=== PATIENT | female | born 1950 | race Caucasian/White ===

== ENCOUNTER → 2016-11-19 | Outpatient (REF) | payer MEDICARE, OTHER ==
[~2016-11-19] MED LIST: ACET65TA OR; ALLE25CA OR; ASPI81TA3 OR
[2016-11-19 13:30] LABS: MEAN CORPUSCULAR HEMOGLOBIN 31.8 pg (27.0-33.0); MEAN CORPUSCULAR HGB CONC 33.3 g/dl (32.0-36.5); MEAN CORPUSCULAR VOLUME 95.5 fl (80.0-96.0); RED CELL DISTRIBUTION WIDTH 12.7 % (11.5-14.5); WHITE BLOOD COUNT 7.5 K/mm3 (4.0-10.0)
[2016-11-19 13:39] LABS: ALBUMIN 3.9 GM/DL (3.2-5.2); ALBUMIN/GLOBULIN RATIO 1.08 (1.00-1.93); ALKALINE PHOSPHATASE 78 U/L (45-117); ALT/SGPT 147 U/L (12-78); ANION GAP 7 MEQ/L (8-16); AST/SGOT 77 U/L (15-37); BILIRUBIN,TOTAL 0.6 MG/DL (0.2-1.0); BLOOD UREA NITROGEN 13 MG/DL (7-18); CALCIUM LEVEL 9.2 MG/DL (8.8-10.2); CARBON DIOXIDE LEVEL 30 MEQ/L (21-32); CHLORIDE LEVEL 104 MEQ/L (98-107); CREATININE FOR GFR 0.86 MG/DL (0.55-1.02); GLOMERULAR FILTRATION RATE > 60.0 (>45); GLUCOSE, FASTING 88 MG/DL (80-110); POTASSIUM SERUM 4.5 MEQ/L (3.5-5.1); SODIUM LEVEL 141 MEQ/L (136-145); TOTAL PROTEIN 7.5 GM/DL (6.4-8.2)
== END ==
LOC: M SFHCPLAZ 10:52
PROVIDERS: ATTEND Nurse Practitioner Adult Health
DX: E03.9 Hypothyroidism, unspecified (principal); E55.9 Vitamin D deficiency, unspecified

== ENCOUNTER → 2017-11-25 | Outpatient (CLI) | payer MEDICARE, OTHER ==
[2017-11-25 09:34] LABS: ALBUMIN 3.3 GM/DL (3.2-5.2); ALBUMIN/GLOBULIN RATIO 0.85 (1.00-1.93); ALKALINE PHOSPHATASE 81 U/L (45-117); ALT/SGPT 34 U/L (12-78); ANION GAP 6 MEQ/L (8-16); AST/SGOT 21 U/L (7-37); BILIRUBIN,TOTAL 0.4 MG/DL (0.2-1.0); BLOOD UREA NITROGEN 12 MG/DL (7-18); CALCIUM LEVEL 8.9 MG/DL (8.8-10.2); CARBON DIOXIDE LEVEL 32 MEQ/L (21-32); CHLORIDE LEVEL 105 MEQ/L (98-107); CHOLESTEROL LEVEL 231 MG/DL (<200); CHOLESTEROL RISK RATIO 4.714 (<5); CREATININE FOR GFR 0.82 MG/DL (0.55-1.30); GLOMERULAR FILTRATION RATE > 60.0 (>45); GLUCOSE, FASTING 89 MG/DL (70-100); HDL CHOLESTEROL 49 MG/DL (>40); LDL CHOLESTEROL 138.8 MG/DL (<100); NON-HDL-C 182 MG/DL; POTASSIUM SERUM 4.5 MEQ/L (3.5-5.1); SODIUM LEVEL 143 MEQ/L (136-145); TOTAL PROTEIN 7.2 GM/DL (6.4-8.2); TRIGLYCERIDES LEVEL 216 MG/DL (<150)
[2017-11-25 10:01] LABS: TOTAL 25(OH) VITAMIN D 40.3 NG/ML (30.0-100.0)
== END ==
LOC: M WUC 08:08
DX: Z00.00 Encounter for general adult medical examination without abnormal findings (principal); E55.9 Vitamin D deficiency, unspecified; E03.9 Hypothyroidism, unspecified; E78.2 Mixed hyperlipidemia
CPT/HCPCS: 84443

== ENCOUNTER → 2017-12-09 | Outpatient (CLI) | payer MEDICARE, OTHER | LOC: M RAD 07:16 | DX: R79.89 Other specified abnormal findings of blood chemistry (principal); K80.80 Other cholelithiasis without obstruction; N28.89 Other specified disorders of kidney and ureter | CPT/HCPCS: 76705 ==

== ENCOUNTER → 2018-07-07 | Outpatient (REF) | payer MEDICARE, OTHER ==
[2018-07-07 12:14] LABS: BASO # 0.1 10^3/uL (0.0-0.2); BASO % 0.3 % (0.0-1.0); EOS # 0.2 10^3/uL (0.0-0.50); EOS % 1.1 % (0.0-3.0); HEMATOCRIT 39.8 % (36.0-47.0); HEMOGLOBIN 12.9 g/dl (12.0-15.5); LYMPH # 3.7 10^3/uL (1.5-4.5); LYMPH % 23.3 % (24.0-44.0); MEAN CORPUSCULAR HEMOGLOBIN 29.9 pg (27.0-33.0); MEAN CORPUSCULAR HGB CONC 32.4 g/dl (32.0-36.5); MEAN CORPUSCULAR VOLUME 92.3 fl (80.0-96.0); MONO # 1.2 10^3/uL (0.0-0.8); MONO % 7.9 % (0.0-5.0); NEUTROPHILS # 10.5 10^3/uL (1.8-7.7); NEUTROPHILS % 66.9 % (36.0-66.0); PLATELET COUNT, AUTOMATED 504 10^3/uL (150-450); RED BLOOD COUNT 4.31 10^6/uL (4.00-5.40); WHITE BLOOD COUNT 15.7 10^3/uL (4.0-10.0)
[2018-07-07 12:54] LABS: ALT/SGPT 22 U/L (12-78); BILIRUBIN,TOTAL 0.3 MG/DL (0.2-1.0); BLOOD UREA NITROGEN 15 MG/DL (7-18); CALCIUM LEVEL 8.8 MG/DL (8.8-10.2); CARBON DIOXIDE LEVEL 29 MEQ/L (21-32); CHLORIDE LEVEL 102 MEQ/L (98-107); CREATININE FOR GFR 0.91 MG/DL (0.55-1.30); GLOMERULAR FILTRATION RATE > 60.0 (>45); GLUCOSE, FASTING 96 MG/DL (70-100); POTASSIUM SERUM 4.5 MEQ/L (3.5-5.1); SODIUM LEVEL 139 MEQ/L (136-145); TOTAL PROTEIN 7.3 GM/DL (6.4-8.2)
== END ==
LOC: M SFHCPLAZ 10:57
PROVIDERS: ATTEND Nurse Practitioner Adult Health
DX: R10.31 Right lower quadrant pain (principal)

== ENCOUNTER → 2018-07-07 | Outpatient (CLI) | payer MEDICARE, OTHER ==
[~2018-07-07] MED LIST changes: +GASTROGRAFIN SOLUTION 30ML (Q9963) As Ordered ONE; +ISOVUE-370 76% 100ML VIAL (Q9967) As Ordered ONE
--- NOTE | 2018-07-07 14:33 | REP ---
CT ABDOMEN/PELVIS WITHOUT AND WITH CONTRAST: 07/07/2018 CLINICAL HISTORY: Right lower quadrant abdominal pain. TECHNIQUE: Oral Gastrografin mixture per our protocol with scanning followed by a bolus of 100 mL Isovue 370 rescanning through the abdomen and pelvis and with both coronal and sagittal reconstructions provided. FINDINGS: CT ABDOMEN: The lung bases are clear. Heart not enlarged. There is no pericardial thickening or effusion. No hiatal hernia. The liver shows no hepatic mass or fatty infiltration, left lobe mildly prominent. Contours are smooth. No biliary dilatation nor adjacent ascites. A few tiny calcifications in the spleen noted. There is a 13 mm cyst in the left lobe of the liver as a benign finding. Adrenal glands are normal. Kidneys show function without obstruction. A couple of tiny cysts are seen posteriorly in the periphery of the right upper pole. No stone or mass and no hydronephrosis. The aorta has atherosclerotic calcifications without aneurysm. Oral contrast did reach the transverse colon. There are no inflammatory changes in the abdominal portion of the colon. Appendix is actually in the upper pelvic portion of the right mid abdomen because the cecum has a medial angulation in the mid abdomen/upper pelvis. Appendix is normal. Bone windows show degenerative disc changes at L4-5 and no compression fracture or destructive lesion. No spondylolysis. The visualized ribs are intact. CT PELVIS: The bony sacrum, iliac bones, hips, and SI joints are unremarkable. There is some sclerosis at the symphysis pubis. Pubic rami grossly intact. Uterus anteverted. There appears to be nodular fibroid in the fundus and body of the uterus up to 3.8 cm. The distal left colon proximal sigmoid shows stool and diverticulosis. The mid to distal sigmoid to the junction of the rectum shows bowel wall thickening, some adjacent inflammatory changes or edema in the pericolonic fat. There is no perforation or abscess. The segmental length of this abnormal sigmoid is at least 9 cm. I see no pelvic free fluid. Small bowel loops in the deep pelvis are unremarkable. The bladder is only partially filled, but there is no evidence for mass, wall thickening, or stone. No ventral or inguinal hernia. IMPRESSION: 1. Thickened, edematous circumferential abnormality of the mid to distal sigmoid with inflammatory or edematous changes in the adjacent subserosal fat and with evidence for diverticulosis of the sigmoid proximal to this. The findings may reflect diverticulitis, but there is no perforation, abscess, or free air. No ascites. After treatment for acute diverticulitis or diverticular disease, this should be followed up. Possibility of malignant mucosal lesion of the colon is not excluded and must be reassessed after completion of treatment. Ultimately, this may require followup with colonoscopy. 2. Diverticulosis proximal sigmoid and scattered elsewhere in the left colon without other inflammatory changes. Small bowel intact. 3. Liver with prominent left hepatic lobe, but no gross hepatomegaly. A small 13 mm cyst seen within. No biliary dilatation. No other significant finding. Electronically Signed by Etienne Blanco MD 07/07/2018 09:55 P
== END ==
LOC: M RAD 11:39
PROVIDERS: ATTEND Nurse Practitioner Adult Health
DX: R93.5 Abnormal findings on diagnostic imaging of other abdominal regions, including retroperitoneum (principal); K57.30 Diverticulosis of large intestine without perforation or abscess without bleeding; K76.89 Other specified diseases of liver; R10.31 Right lower quadrant pain
CPT/HCPCS: 74178; 80053; 85025; Q9963; Q9967

== ENCOUNTER 2018-08-17 18:29 | Inpatient (IN) | payer MEDICARE, OTHER ==
[~2018-08-17] VITALS: Ht 165.1 cm; Wt 61.6 kg
[~2018-08-17 18:29] MED LIST changes: -GASTROGRAFIN SOLUTION 30ML (Q9963) As Ordered ONE; -ISOVUE-370 76% 100ML VIAL (Q9967) As Ordered ONE
[2018-08-17] MEDS ORDERED: ACET-908 PO (18:39)
[2018-08-17] MEDS ORDERED: NS 1,000 ML IV SCH (19:30)
[2018-08-17] MEDS ORDERED: ONDANSETRON 4MG/2ML VIAL (J2405) IV ONE (19:30)
[2018-08-17] MEDS ORDERED: MORPHINE 2 MG/ML 1ML SYRINGE (J2270) IV PRN (19:30)
[2018-08-17 19:36] LABS: BASO % 0.2 % (0.0-1.0); EOS # 0.1 10^3/uL (0.0-0.50); EOS % 0.5 % (0.0-3.0); HEMATOCRIT 33.5 % (36.0-47.0); HEMOGLOBIN 10.7 g/dl (12.0-15.5); LYMPH # 3.6 10^3/uL (1.5-4.5); LYMPH % 20.4 % (24.0-44.0); MEAN CORPUSCULAR HEMOGLOBIN 28.1 pg (27.0-33.0); MEAN CORPUSCULAR HGB CONC 31.9 g/dl (32.0-36.5); MEAN CORPUSCULAR VOLUME 87.9 fl (80.0-96.0); MONO # 1.1 10^3/uL (0.0-0.8); MONO % 6.3 % (0.0-5.0); NEUTROPHILS # 12.8 10^3/uL (1.8-7.7); NEUTROPHILS % 72.1 % (36.0-66.0); PLATELET COUNT, AUTOMATED 753 10^3/uL (150-450); RED BLOOD COUNT 3.81 10^6/uL (4.00-5.40); WHITE BLOOD COUNT 17.7 10^3/uL (4.0-10.0)
[2018-08-17] MEDS: GASTROGRAFIN SOLUTION 30ML PO SCH ×2 (19:59→20:37)
[2018-08-17 20:02] LABS: ALBUMIN 1.9 GM/DL (3.2-5.2); ALT/SGPT 15 U/L (12-78); BILIRUBIN,DIRECT 0.1 MG/DL (0.0-0.2); BILIRUBIN,TOTAL 0.4 MG/DL (0.2-1.0); BLOOD UREA NITROGEN 13 MG/DL (7-18); CALCIUM LEVEL 8.8 MG/DL (8.8-10.2); CARBON DIOXIDE LEVEL 27 MEQ/L (21-32); CHLORIDE LEVEL 101 MEQ/L (98-107); CREATININE FOR GFR 0.78 MG/DL (0.55-1.30); GLOMERULAR FILTRATION RATE > 60.0 (>45); GLUCOSE, FASTING 101 MG/DL (70-100); LIPASE 40 U/L (73-393); POTASSIUM SERUM 4.3 MEQ/L (3.5-5.1); SODIUM LEVEL 134 MEQ/L (136-145); TOTAL PROTEIN 6.3 GM/DL (6.4-8.2)
[2018-08-17] MEDS ORDERED: PIPERACILLIN/TAZOBACTAM SOD 3.375 GM in D5W MINI-BAG PLUS 50 ML IV ONE (20:30)
[2018-08-17] MEDS ORDERED: ISOVUE-370 76% 100ML VIAL (Q9967) As Ordered ONE (21:34)
[2018-08-17] MEDS ORDERED: LORazepam 1 MG TAB PO STA (22:33)
--- NOTE | 2018-08-17 23:28 | ECGEPIP ---
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
--- NOTE | 2018-08-18 00:15 | REPVR ---
EXAM: CT Abdomen and Pelvis With Contrast EXAM DATE/TIME: 08/17/2018 10:14 PM CLINICAL HISTORY: 68 years old, female; Abdominal pain; Generalized; Prior surgery; Additional info: Diverticulitis R/O abscess TECHNIQUE: Imaging protocol: Axial computed tomography images of the abdomen and pelvis with intravenous contrast. Coronal and sagittal reformatted images were created and reviewed. Radiation optimization: All CT scans at this facility use at least one of these dose optimization techniques: automated exposure control; mA and/or kV adjustment per patient size (includes targeted exams where dose is matched to clinical indication); or iterative reconstruction. Contrast material: ISOVUE 370; Contrast volume: 100 ml; Contrast route: IV; COMPARISON: CT ABD PELVIS W/O FOL BY WIT 07/07/2018 1:40 PM FINDINGS: ABDOMEN: Liver: Diffuse fatty infiltration of liver. Gallbladder and bile ducts: Gallstones. Pancreas: Normal. No ductal dilation. Spleen: Normal. No splenomegaly. Adrenals: Normal. No mass. Kidneys and ureters: Cortical scarring of the upper pole of left kidney. Right kidney is unremarkable. Stomach and bowel: Large fecal loading of the colon. Marked distention of the rectum. Additionally there is a large low attenuation area with thickened enhancing margins and central areas of air in the anterior rectal wall extending up to the sigmoid colon measuring approximately 7.3 x 5.6 x 6.1 cm. Surrounding moderate inflammatory changes and small fluid is seen. Mass effect on the uterus and urinary bladder as described above. Findings are concerning for a rectal wall abscess formation versus necrotic mass, further workup is recommended. Appendix: Normal appendix. PELVIS: Bladder: Unremarkable as visualized. Reproductive: Heterogeneous uterus with small amount of fluid posterior to the uterus. Glucoses displaced superiorly from the rectum abscess versus mass. Subperitoneal space: Presacral edema. ABDOMEN and PELVIS: Intraperitoneal space: See Stomach And Bowel Finding. Bones/joints: Mild degenerative changes. Soft tissues: Unremarkable. Vasculature: Normal. No abdominal aortic aneurysm. Lymph nodes: Normal. No enlarged lymph nodes. IMPRESSION: Large fecal loading of the colon. Marked distention of the rectum. Additionally there is a large low attenuation area with thickened enhancing margins and central areas of air in the anterior rectal wall extending up to the sigmoid colon measuring approximately 7.3 x 5.6 x 6.1 cm. Surrounding moderate inflammatory changes and small fluid is seen. Mass effect on the uterus and urinary bladder as described above. Findings are concerning for a rectal wall abscess formation versus necrotic mass, further workup is recommended. Electronically signed by: Stacy Joshua On 08/18/2018 00:14:57 AM
[2018-08-18] MEDS ORDERED: SENN-50 PO (01:19)
[2018-08-18] MEDS ORDERED: OMEG10005 PO (01:19)
[2018-08-18] MEDS ORDERED: SYST1SOL4 OU (01:19)
[2018-08-18] MEDS ORDERED: VITMTA PO (01:19)
[2018-08-18] MEDS ORDERED: ACET-897 PO (01:19)
[2018-08-18] MEDS ORDERED: VITA-144 PO (01:19)
[2018-08-18] MEDS ORDERED: ANTI2TAB16 PO (01:19)
[2018-08-18] MEDS ORDERED: KETOROLAC 30 MG/ML VIAL (J1885) IV PRN (01:30)
[2018-08-18] MEDS ORDERED: MORPHINE 4 MG/ML 1ML VIAL/SYRINGE (J2270) IV PRN (01:30)
[2018-08-18] MEDS ORDERED: ONDANSETRON 4MG/2ML VIAL (J2405) IV PRN (01:30)
[2018-08-18] MEDS ORDERED: PERCOCET 5MG/325MG TAB PO PRN ×2 (01:30)
[2018-08-18] MEDS: CIPROFLOXACIN 400 MG in APPROPRIATE DILUENT 1 EA IV SCH ×3 (01:37→14:57)
[2018-08-18 02:25] VITALS: BP 119/62
[2018-08-18] MEDS: LR 1,000 ML IV SCH ×3 (03:06→17:17)
[2018-08-18] MEDS: metroNIDAZOLE 500 MG in APPROPRIATE DILUENT 1 EA IV SCH ×3 (04:00→20:00)
[2018-08-18 06:00] VITALS: BP 98/58
[2018-08-18 06:09] LABS: BASO % 0.2 % (0.0-1.0); EOS # 0.2 10^3/uL (0.0-0.50); EOS % 1.1 % (0.0-3.0); HEMATOCRIT 31.5 % (36.0-47.0); HEMOGLOBIN 9.8 g/dl (12.0-15.5); LYMPH # 2.5 10^3/uL (1.5-4.5); LYMPH % 15.8 % (24.0-44.0); MEAN CORPUSCULAR HGB CONC 31.1 g/dl (32.0-36.5); MONO # 1.1 10^3/uL (0.0-0.8); MONO % 6.6 % (0.0-5.0); NEUTROPHILS % 75.7 % (36.0-66.0); PLATELET COUNT, AUTOMATED 695 10^3/uL (150-450); WHITE BLOOD COUNT 15.9 10^3/uL (4.0-10.0)
[2018-08-18 06:37] LABS: BLOOD UREA NITROGEN 10 MG/DL (7-18); CALCIUM LEVEL 8.2 MG/DL (8.8-10.2); CARBON DIOXIDE LEVEL 29 MEQ/L (21-32); CHLORIDE LEVEL 102 MEQ/L (98-107); CREATININE FOR GFR 0.69 MG/DL (0.55-1.30); GLOMERULAR FILTRATION RATE > 60.0 (>45); GLUCOSE, FASTING 87 MG/DL (70-100); SODIUM LEVEL 135 MEQ/L (136-145)
[2018-08-18 09:00] VITALS: BP 120/60
[2018-08-18] MEDS: ENOXAPARIN 40 MG/0.4 ML SYRINGE (J1650) SC SCH (09:39)
[2018-08-18] MEDS: SENOKOT S TAB PO SCH ×2 (09:39→22:00)
[2018-08-18 14:00] VITALS: BP 133/64
[2018-08-18 22:00] VITALS: BP 103/57
[2018-08-19] MEDS: LR 1,000 ML IV SCH ×3 (00:39→21:08)
[2018-08-19] MEDS: CIPROFLOXACIN 400 MG in APPROPRIATE DILUENT 1 EA IV SCH ×2 (02:54→17:04)
[2018-08-19] MEDS: metroNIDAZOLE 500 MG in APPROPRIATE DILUENT 1 EA IV SCH ×3 (04:00→21:09)
[2018-08-19 06:00] VITALS: BP 126/60
[2018-08-19 06:32] LABS: BASO % 0.2 % (0.0-1.0); EOS # 0.2 10^3/uL (0.0-0.50); EOS % 0.9 % (0.0-3.0); HEMOGLOBIN 9.7 g/dl (12.0-15.5); LYMPH # 3.5 10^3/uL (1.5-4.5); MEAN CORPUSCULAR HGB CONC 31.3 g/dl (32.0-36.5); MEAN CORPUSCULAR VOLUME 89.6 fl (80.0-96.0); MONO # 1.2 10^3/uL (0.0-0.8); MONO % 6.7 % (0.0-5.0); NEUTROPHILS # 12.4 10^3/uL (1.8-7.7); NEUTROPHILS % 71.6 % (36.0-66.0); PLATELET COUNT, AUTOMATED 727 10^3/uL (150-450); RED BLOOD COUNT 3.46 10^6/uL (4.00-5.40); WHITE BLOOD COUNT 17.4 10^3/uL (4.0-10.0)
[2018-08-19 06:56] LABS: BLOOD UREA NITROGEN 7 MG/DL (7-18); CALCIUM LEVEL 8.1 MG/DL (8.8-10.2); CARBON DIOXIDE LEVEL 26 MEQ/L (21-32); CHLORIDE LEVEL 102 MEQ/L (98-107); CREATININE FOR GFR 0.57 MG/DL (0.55-1.30); GLOMERULAR FILTRATION RATE > 60.0 (>45); GLUCOSE, FASTING 83 MG/DL (70-100); POTASSIUM SERUM 3.8 MEQ/L (3.5-5.1); SODIUM LEVEL 136 MEQ/L (136-145)
[2018-08-19] MEDS: ENOXAPARIN 40 MG/0.4 ML SYRINGE (J1650) SC SCH (08:57)
[2018-08-19] MEDS: SENOKOT S TAB PO SCH ×2 (08:57→21:09)
--- NOTE | 2018-08-19 10:01 | HPEPDOC ---
General Surgery H&P Date of Admission Aug 18, 2018 Attending Physician: DIMITRY HOOD MD History and Physical CHIEF COMPLAINT: abdominal pain HISTORY OF PRESENT ILLNESS: Patient presents to the emergency room on 2018 with more than a month history of lower abdominal pain. This roughly started on 07/07/2018. She was seen by her primary care doctor for complaints of right lower quadrant pain at that time. She was worked up for possibility of acute appendicitis and a CT abdomen and pelvis was done. This showed marked inflammation involving a 9 cm segment of the sigmoid. She was started on oral ciprofloxacin and metronidazole but she only took this for 2 days that she was experiencing some skittish mass, diarrhea, nausea which she attributed to side effects of the medications. He was then decided to just follow her course. The frequent diarrhea improved but did not totally resolve. She continues to have about 3-4 small amounts of loose stools. She denies noticing any blood or mucus with the passage of stools. She continues to have poor appetite and episodes of nausea, fullness with small danial ls but she denies any overt vomiting. Generally for the past month has been feeling ill. She reports fever early on her course but this seems at some point to have resolved. Decided with her daughter to go to the emergency room as she does not seem to be getting better and she felt so dehydrated and weak. She reports losing about 10-15 pounds since this has been ongoing. She has had no previous colonoscopies or methods of colorectal cancer screening and she has refused this in the past with her primary care doctor. She denies any significant family history for inflammatory bowel disease nor gastrointestinal malignancies. In the emergency room she was evaluated with a CT scan likewise repeat laboratories and subsequently I was called in to help manage the patient. ALLERGIES: Please see below. HOME MEDICATIONS: Please see below. PAST MEDICAL HISTORY: 1. Hypercholesterolemia 2. Osteopenia 3. Vitamin D deficiency PAST SURGICAL HISTORY: 1. Repair right wrist fracture (2007) 2. Bilateral cataract surgery 3. Bunionectomy 4. section 3. 4. Tubal ligation PERSONAL/SOCIAL HISTORY: Denies smoking, alcohol use, or recreational drug use. REVIEW OF SYSTEMS: GENERAL: Patient feeling not well for about a month regarding ongoing problems related to the diverticulitis including weight loss, poor appetite HEENT: Denies blurred vision and double vision. Denies ear symptoms. Denies hoarseness. Patient with previous cataract surgery NECK: Denies any neck pain. CARDIOVASCULAR: Denies chest pain and palpitations. MUSCULOSKELETAL: Denies arthralgias, back pain and thrombophlebitis. SKIN: Denies rash. NEUROLOGIC: Patient with previous admission for suspected TIA in 2011, no resi dual weakness. PSYCHIATRIC: Denies anxiety and depression. ENDOCRINE: Denies thyroid disease. HEMATOLOGY/ONCOLOGY: Denies any bleeding or clotting disorder. HEART: Denies any chest pains, palpitations, paroxysmal dyspnea, orthopnea. PULMONARY: Denies chronic cough, dyspnea and wheezing. GASTROINTESTINAL: See HPI GENITOURINARY: Denies dysuria, frequency, hematuria and nocturia. ENDOCRINE: Denies polydipsia, polyphagia, polyuria, heat or cold intolerance. INFECTIOUS: Denies any recent upper respiratory tract infection, UTI, need for use of antibiotics. NUTRITION: Reports poor appetite PHYSICAL EXAMINATION: VITAL SIGNS: Please see below. GENERAL APPEARANCE: Patient seen at bedside, generally looks comfortable. She reports feeling better since being admitted to the hospital overnight. HEENT: Normocephalic, atraumatic. [place] palpebral conjunctivae. Anicteric sclerae. Lips moist. CHEST: No chest wall abnormalities. Normal respiratory motion/effort. NECK: Supple. No thyromegaly. No lymphadenopathies. LUNGS: Lung sounds are clear to auscultation bilaterally. No wheezing appreciated. HEART: No chest wall abnormalities. Heart rate and rhythm are regular with no murmurs. ABDOMEN: [Abdomen is nondistended, soft, slightly rounded. She has a healed Pfannenstiel incision without any evidence of incisional hernia likewise a small incision below the umbilicus. No noticeable umbilical or groin herniations. She is nontender over the upper quadrant areas. She has some moderate tenderness over the right lower quadrant area on deep palpation also with slightly less tenderness on the left lower quadrant area with radiation to the lower midline and suprapubic area. No noticeable guarding during examination. Mildly tympanitic to percussion SKIN: Warm, moist. EXTREMITIES: Extremities have no deformities. No edema identified. NEUROLOGICAL: Awake, alert, oriented. . ANCILLARIES: . LABORATORY DATA: Please see below. MICROBIOLOGY: Please see below. IMAGING: CT abdomen and pelvis 08/17/18 Large fecal loading of the colon. Marked distention of the rectum. Additionally there is a large low attenuation area with thickened enhancing margins and central areas of air in the anterior rectal wall extending up to the sigmoid colon measuring approximately 7.3 x 5.6 x 6.1 cm. Surrounding moderate inflammatory changes and small fluid is seen. Mass effect on the uterus and urinary bladder as described above. Findings are concerning for a rectal wall abscess formation versus necrotic mass, further workup is recommended. 07/08/18 1. Thickened, edematous circumferential abnormality of the mid to distal sigmoid with inflammatory or edematous changes in the adjacent subserosal fat and with evidence for diverticulosis of the sigmoid proximal to this. The findings may reflect diverticulitis, but there is no perforation, abscess, or free air. No ascites. After treatment for acute diverticulitis or diverticular disease, this should be followed up. Possibility of malignant mucosal lesion of the colon is not excluded and must be reassessed after completion of treatment. Ultimately, this may require followup with colonoscopy. 2. Diverticulosis proximal sigmoid and scattered elsewhere in the left colon without other inflammatory changes. Small bowel intact. 3. Liver with prominent left hepatic lobe, but no gross hepatomegaly. A small 13 mm cyst seen within. No biliary dilatation. No other significant finding. IMPRESSION AND PLAN: Diverticulitis complicated by contained abscess (?anterior rectal wall) IV antibiotics bowel rest repeat CT in a few days I had a long discussion with the patient. Her daughter was also at the bedside with her. I showed them the images of the [address] scan findings likewise discussed my clinical impression and plan for therapy. She'll prolonged course of possibly subacute diverticulitis that has not been treated. There is extensive inflammatory changes located over the proximal rectum and along the course of the sigmoid colon with a possibility of an abscess in between the anterior wall of the rectum and the uterus. This could also be an intramural abscess. This is not to well-defined in the CT scan done yesterday. There is no free perforation and she does not have any generalized peritonitis nor any manifestations of severe systemic inflammatory response from this process. The etiology is presumed to be diverticulitis though due to the prolonged course, [place] differentials would be inflammatory versus malignancy. The fact that she has not had any methods of colorectal cancer screening including colonoscopy does not help us in ruling out the possibility of malignancy. At this point with hydration and her being started on IV antibiotics, patient has reported some improvement of her discomfort. I pointed out to her that I am using the same medication that she was started on as an outpatient and I am not sure if the reaction she felt during that time secondary to the medications or to the infectious or inflammatory process in general that she was experiencing. The active issues include controlling the infectious inflammatory process. She may have a contained abscess at the anterior wall of the colon or slightly outside office in between the rectum and uterus and unfortunately this is not amenable to percutaneous drainage. We will continue with IV antibiotics at this time and the short period of bowel rest and will need to repeat a CT scan in a few days to see where we are at. Clinically she reports to be improving. If she continues to improve and the infectious or inflammatory processes controlled with nonoperative therapy, I told him that the next step will be planning for colonoscopy to figure out the etiology. If this is not too well controlled the remaining need to forego finding out the etiology and go to surgery. I did discuss with him a high possibility of her needing bowel resection and the diverging colostomy if we need to go to the operating room urgently or emergently. If she does get better and etiology proves to be making the diverticulitis, I told her that overall I still would suggest undergoing an elective colon resection due to the degree of inflammatory process in the higher likelihood that this will recur given the complex course of the diverticulitis but of course this is more an option than a requirement. I answered her and her daughter's questions at the bedside and they are in agreement with our plan of therapy. Vital Signs Vital Signs Date Time Temp Pulse Resp B/P (MAP) Pulse Ox O2 Delivery O2 Flow Rate FiO2 08/18/18 06:00 98.3 74 18 98/58 (71) 91 08/18/18 02:15 Room Air I&Os I&O- Last 24 Hours up to 6 AM 08/18/18 06:00 Intake Total 1600 ml Output Total 250 ml Balance 1350 ml Laboratory Data Labs 24H Laboratory Tests 2 08/17/18 19:17: Immature Granulocyte % (Auto) 0.5, White Blood Count 17.7H, Red Blood Count 3.81L, Hemoglobin 10.7L, Hematocrit 33.5L, Mean Corpuscular Volume 87.9, Mean Corpuscular Hemoglobin 28.1, Mean Corpuscular Hemoglobin Concent 31.9L, Red Cell Distribution Width 13.7, Platelet Count 753H, Neutrophils (%) (Auto) 72.1H, Ly mphocytes (%) (Auto) 20.4L, Monocytes (%) (Auto) 6.3H, Eosinophils (%) (Auto) 0.5, Basophils (%) (Auto) 0.2, Neutrophils # (Auto) 12.8H, Lymphocytes # (Auto) 3.6, Monocytes # (Auto) 1.1H, Eosinophils # (Auto) 0.1, Basophils # (Auto) 0.0, Nucleated Red Blood Cells % (auto) 0.0, Anion Gap 6L, Glomerular Filtration Rate > 60.0, Calcium Level 8.8, Aspartate Amino Transf (AST/SGOT) 23, Alanine Aminotransferase (ALT/SGPT) 15, Alkaline Phosphatase 144H, Total Bilirubin 0.4, Direct Bilirubin 0.1, Total Protein 6.3L, Albumin 1.9L, Albumin/Globulin Ratio 0.43L, Lipase 40L 08/18/18 05:21: Immature Granulocyte % (Auto) 0.6, White Blood Count 15.9H, Red Blood Count 3.50L, Hemoglobin 9.8L, Hematocrit 31.5L, Mean Corpuscular Volume 90.0, Mean Corpuscular Hemoglobin 28.0, Mean Corpuscular Hemoglobin Concent 31.1L, Red Cell Distribution Width 13.8, Platelet Count 695H, Neutrophils (%) (Auto) 75.7H, Lymphocytes (%) (Auto) 15.8L, Monocytes (%) (Auto) 6.6H, Eosinophils (%) (Auto) 1.1, Basophils (%) (Auto) 0.2, Neutrophils # (Auto) 12.0H, Lymphocytes # (Auto) 2.5, Monocytes # (Auto) 1.1H, Eosinophils # (Auto) 0.2, Basophils # (Auto) 0.0, Nucleated Red Blood Cells % (auto) 0.0, Anion Gap 4L, Glomerular Filtration Rate > 60.0, Calcium Level 8.2L, Blood Urea Nitrogen 10, Creatinine 0.69, Sodium Level 135L, Potassium Level 4.0, Chloride Level 102, Carbon Dioxide Level 29 CBC/BMP Laboratory Tests 08/17/18 19:17 Red Blood Count 3.81 L, Mean Corpuscular Volume 87.9, Mean Corpuscular Hemoglobin 28.1, Mean Corpuscular Hemoglobin Concent 31.9 L, Red Cell Distrib ution Width 13.7, Neutrophils (%) (Auto) 72.1 H, Lymphocytes (%) (Auto) 20.4 L, Monocytes (%) (Auto) 6.3 H, Eosinophils (%) (Auto) 0.5, Basophils (%) (Auto) 0.2, Neutrophils # (Auto) 12.8 H, Lymphocytes # (Auto) 3.6, Monocytes # (Auto) 1.1 H, Eosinophils # (Auto) 0.1, Basophils # (Auto) 0.0 08/18/18 05:21 Red Blood Count 3.50 L, Mean Corpuscular Volume 90.0, Mean Corpuscular Hemoglobin 28.0, Mean Corpuscular Hemoglobin Concent 31.1 L, Red Cell Distribution Width 13.8, Neutrophils (%) (Auto) 75.7 H, Lymphocytes (%) (Auto) 15.8 L, Monocytes (%) (Auto) 6.6 H, Eosinophils (%) (Auto) 1.1, Basophils (%) (Auto) 0.2, Neutrophils # (Auto) 12.0 H, Lymphocytes # (Auto) 2.5, Monocytes # (Auto) 1.1 H, Eosinophils # (Auto) 0.2, Basophils # (Auto) 0.0, Calcium Level 8.2 L Microbiology Microbiology 08/17/18 Blood Culture, Received Pending 08/17/18 Blood Culture, Received Pending Home Medications Scheduled Cholecalciferol (Vitamin D3) (Vitamin D3) 1,000 Unit Tablet, 1,000 UNIT PO DAILY, (Reported) Multivitamins (Thera M Plus Tablet) 1 Each Tablet, 1 TAB PO DAILY, (Reported) [place]-3 Fatty Acids ([place]-3) 1,000 Mg Capsule, 2,000 MG PO DAILY, (Reported) Sennosides/Docusate Sodium (Senna Plus Tablet) 1 Each Tablet, 1 TAB PO QHS, (Reported) Scheduled PRN Acetaminophen (Tylenol Extra Strength) 500 Mg Tablet, 1,000 MG PO Q6H PRN for P AIN, (Reported) Loperamide HCl (Anti-Diarrheal) 2 Mg Tablet, 2 MG PO Q4H PRN for DIARRHEA, (Reported) Propylene Glycol/Peg 400/Pf (Systane 0.3-0.4% Eye Drop) 1 Each Droperette, 1 DROP OU QID PRN for DRY EYES, (Reported) Allergies Coded Allergies: bee venom protein (honey bee) (Verified Allergy, Intermediate, SWELLING AND REDNESS, 08/17/18) spider venom (Unverified Allergy, Intermediate, BLACK AND BLUE, SWELLING, 08/18/18) TAPE (Verified Allergy, Unknown, SENSITIVIY, 08/17/18) Coconut (Verified Adverse Reaction, Intermediate, VIOLENTLY ILL, 08/17/18) Crab (Verified Adverse Reaction, Intermediate, VIOLENTLY ILL, 08/17/18) tree nut (Verified Adverse Reaction, Intermediate, MIGRAINES, 08/17/18) aspirin (Verified Adverse Reaction, Unknown, 08/17/18) DIMITRY HOOD MD Aug 18, 2018 08:33
--- NOTE | 2018-08-19 13:31 | IPNPDOC ---
Subjective General Date/Time Seen The patient was seen on 08/19/18 at 08:35. Subject Chief Complaint/History The patient is a 68-year-old female admitted with a reason for visit of Acute Diverticulitis. Patient reports she is feeling better. Not much leftover abdominal discomfort. She is passing flatus but has not had any bowel movements since admission. She is denying nausea, vomiting, bloating. She has been afebrile. She reports feeling weak and his tendency to fall at home. Current Medications Current Medications Current Medications Ciprofloxacin 400 mg/IV Miscellaneous Supplies 200 ml @ 200 mls/hr Q12H IV Last administered on 08/19/18at 02:54; Start 08/18/18 at 03:00 Diatrizoate Meglum/ Diatrizoate Sod (Gastrografin) 10 ml Q30M PO Last administered on 08/17/18at 20:37; Start 08/17/18 at 20:00; Stop 08/17/18 at 20:31; Status DC Enoxaparin Sodium (Lovenox) 40 mg DAILY SC Last administered on 08/18/18at 09:39; Start 08/18/18 at 09:00 Home Med (Med Rec Complete!) ASDIRECTED XX ; Start 08/18/18 at 01:30; Stop 08/18/18 at 01:30; Status DC Ketorolac Tromethamine (ToRADol) 30 mg Q6HP PRN IV MILD/MODERATE PAIN (PS 1-7); Start 08/18/18 at 01:30; Stop 08/23/18 at 01:29 Lactated Ringer's 1,000 ml @ 125 mls/hr Q8H IV Last administered on 08/19/18at 00:39; Start 08/18/18 at 01:17 Lorazepam (Ativan) 1 mg STAT STAT PO ; Start 08/17/18 at 22:33; Stop 08/17/18 at 22:34; Status Cancel Metronidazole 500 mg/IV Miscellaneous Supplies 100 ml @ 100 mls/hr Q8H IV Last administered on 08/19/18at 04:00; Start 08/18/18 at 04:00 Morphine Sulfate (Morphine Sulfate Inj) 2 mg Q30M PRN IV MODERATE PAIN (PS 5-7) Last administered on 08/17/18at 19:59; Start 08/17/18 at 19:30; Stop 08/18/18 at 01:26; Status DC Morphine Sulfate (Morphine Sulfate Inj) 4 mg Q2HP PRN IV SEVERE PAIN (PS 8-10); Start 08/18/18 at 01:30 Ondansetron HCl (ZOFRAN INJection) 4 mg Q6HP PRN IV NAUSEA OR VOMITING; Start 08/18/18 at 01:30 Oxycodone/ Acetaminophen (Percocet 5mg/ 325mg Tablet) 1 tab Q4HP PRN PO MODERATE PAIN (PS 5-7) Last administered on 08/18/18at 01:58; Start 08/18/18 at 01:30 Oxycodone/ Acetaminophen (Percocet 5mg/ 325mg Tablet) 2 tab Q6HP PRN PO SEVERE PAIN (PS 8-10); Start 08/18/18 at 01:30 Senna/Docusate Sodium (Senokot S) 1 tab BID PO Last administered on 08/18/18at 09:39; Start 08/18/18 at 09:00 Sodium Chloride 1,000 ml @ 100 mls/hr Q10H IV Last administered on 08/17/18at 19:58; Start 08/17/18 at 19:30; Stop 08/18/18 at 01:25; Status DC Allergies Coded Allergies: bee venom protein (honey bee) (Verified Allergy, Intermediate, SWELLING AND REDNESS, 08/17/18) spider venom (Unverified Allergy, Intermediate, BLACK AND BLUE, SWELLING, 08/18/18) TAPE (Verified Allergy, Unknown, SENSITIVIY, 08/17/18) Coconut (Verified Adverse Reaction, Intermediate, VIOLENTLY ILL, 08/17/18) Crab (Verified Adverse Reaction, Intermediate, VIOLENTLY ILL, 08/17/18) tree nut (Verified Adverse Reaction, Intermediate, MIGRAINES, 08/17/18) aspirin (Verified Adverse Reaction, Unknown, 08/17/18) Objective Physical Examination Examination GENERAL APPEARANCE: Looks comfortable. SKIN: Warm and moist. HEENT: Normocephalic, atraumatic. [place] palpebral conjunctiva, anicteric sclerae. Lips and mucosa appear moist. NECK: Supple, no thyromegaly. No obvious jugular venous distention. LUNGS: Clear to auscultation bilaterally. No wheezing appreciated. HEART: No chest wall abnormalities. Regular rate and rhythm with no murmurs appreciated. ABDOMEN: Abdomen is relatively flat, soft, much less distended than yesterday. Patient has only minimal discomfort with deep palpation over the right lower quadrant area and left lower quadrant area, much less discomfort than yesterday's examination. She reports some mild discomfort at the suprapubic area but mainly because of a full bladder. EXTREMITIES: Extremities have no deformities. No edema identified. Vital Signs Vital Signs Date Time Temp Pulse Resp B/P (MAP) Pulse Ox O2 Delivery O2 Flow Rate FiO2 08/19/18 06:00 99.0 91 20 126/60 (82) 94 08/18/18 02:15 Room Air I&Os I&O- Last 24 Hours up to 6 AM 08/19/18 06:00 Intake Total 1775 ml Output Total 1350 ml Balance 425 ml Laboratory Data Labs 24H Laboratory Tests 2 08/19/18 05:20: Immature Granulocyte % (Auto) 0.6, White Blood Count 17.4H, Red Blood Count 3.46L, Hemoglobin 9.7L, Hematocrit 31.0L, Mean Corpuscular Volume 89.6, Mean Corpuscular Hemoglobin 28.0, Mean Corpuscular Hemoglobin Concent 31.3L, Red Cell Distribution Width 14.0, Platelet Count 727H, Neutrophils (%) (Auto) 71.6H, Lymphocytes (%) (Auto) 20.0L, Monocytes (%) (Auto) 6.7H, Eosinophils (%) (Auto) 0.9, Basophils (%) (Auto) 0.2, Neutrophils # (Auto) 12.4H, Lymphocytes # (Auto) 3.5, Monocytes # (Auto) 1.2H, Eosinophils # (Auto) 0.2, Basophils # (Auto) 0.0, Nucleated Red Blood Cells % (auto) 0.0 08/19/18 05:21: Anion Gap 8, Glomerular Filtration Rate > 60.0, Blood Urea Nitrogen 7, Creatinine 0.57, Sodium Level 136, Potassium Level 3.8, Chloride Level 102, Carbon Dioxide Level 26, Calcium Level 8.1L CBC/BMP Laboratory Tests 08/19/18 05:20 Red Blood Count 3.46 L, Mean Corpuscular Volume 89.6, Mean Corpuscular Hemoglobin 28.0, Mean Corpuscular Hemoglobin Concent 31.3 L, Red Cell Distribution Width 14.0, Neutrophils (%) (Auto) 71.6 H, Lymphocytes (%) (Auto) 20.0 L, Monocytes (%) (Auto) 6.7 H, Eosinophils (%) (Auto) 0.9, Basophils (%) (Auto) 0.2, Neutrophils # (Auto) 12.4 H, Lymphocytes # (Auto) 3.5, Monocytes # (Auto) 1.2 H, Eosinophils # (Auto) 0.2, Basophils # (Auto) 0.0 08/19/18 05:21 Calcium Level 8.1 L Microbiology Microbiology 08/17/18 Blood Culture - Preliminary, Resulted No growth after 24 hours . All specim... 08/17/18 Blood Culture - Preliminary, Resulted No growth after 24 hours . All specim... Impression Diverticulitis, complicated with possible anterior wall rectal abscess Patient looks more comfortable today and certainly not showing any systemic signs of severe inflammatory reaction. her abdominal exam shows much imp rovement then yesterday's. I will start her on clear liquids and allow her some Ensure clears as she has not had any good nutrition for a month now according to her. Overall plan is to see how she does with antibiotic therapy and probably repeat CT on Thursday or Thursday depending on how she is doing. She reports feeling unstable when she is walking so I'll get physical therapy to work with her well getting antibiotic therapy. Plan / VTE VTE Prophylaxis Ordered?: Yes DIMITRY HOOD MD Aug 19, 2018 08:35
[2018-08-19 14:00] VITALS: BP 123/58
[2018-08-19 22:00] VITALS: BP 107/50
[2018-08-19 23:00] VITALS: BP 110/57
[2018-08-20] MEDS: CIPROFLOXACIN 400 MG in APPROPRIATE DILUENT 1 EA IV SCH ×2 (04:03→16:00)
[2018-08-20] MEDS: metroNIDAZOLE 500 MG in APPROPRIATE DILUENT 1 EA IV SCH ×3 (05:20→21:02)
[2018-08-20 05:59] LABS: BASO % 0.2 % (0.0-1.0); EOS # 0.2 10^3/uL (0.0-0.50); EOS % 0.9 % (0.0-3.0); HEMATOCRIT 28.5 % (36.0-47.0); HEMOGLOBIN 8.8 g/dl (12.0-15.5); LYMPH # 2.4 10^3/uL (1.5-4.5); LYMPH % 14.8 % (24.0-44.0); MEAN CORPUSCULAR HEMOGLOBIN 27.2 pg (27.0-33.0); MEAN CORPUSCULAR HGB CONC 30.9 g/dl (32.0-36.5); MEAN CORPUSCULAR VOLUME 88.2 fl (80.0-96.0); MONO % 6.3 % (0.0-5.0); NEUTROPHILS # 12.3 10^3/uL (1.8-7.7); NEUTROPHILS % 77.2 % (36.0-66.0); PLATELET COUNT, AUTOMATED 679 10^3/uL (150-450); RED BLOOD COUNT 3.23 10^6/uL (4.00-5.40); WHITE BLOOD COUNT 15.9 10^3/uL (4.0-10.0)
[2018-08-20 06:00] VITALS: BP 121/58
[2018-08-20 06:27] LABS: BLOOD UREA NITROGEN 5 MG/DL (7-18); CARBON DIOXIDE LEVEL 29 MEQ/L (21-32); CHLORIDE LEVEL 105 MEQ/L (98-107); CREATININE FOR GFR 0.57 MG/DL (0.55-1.30); GLOMERULAR FILTRATION RATE > 60.0 (>45); GLUCOSE, FASTING 118 MG/DL (70-100); POTASSIUM SERUM 3.3 MEQ/L (3.5-5.1); SODIUM LEVEL 138 MEQ/L (136-145)
[2018-08-20] MEDS: SENOKOT S TAB PO SCH ×2 (08:23→20:21)
[2018-08-20] MEDS: KCL 20MEQ IN D5/0.45NS 1000ML 1,000 ML IV SCH (08:23)
[2018-08-20] MEDS: ENOXAPARIN 40 MG/0.4 ML SYRINGE (J1650) SC SCH (08:23)
--- NOTE | 2018-08-20 12:30 | IPNPDOC ---
Subjective General Date/Time Seen The patient was seen on 08/20/18 at 07:46. Subject Chief Complaint/History The patient is a 68-year-old female admitted with a reason for visit of Acute Diverticulitis. Patient reports she's feeling better, has only minimal discomfort around the suprapubic area. She is tolerating clears. She is denying nausea, vomiting, bloating. She has not had any bowel movements since admission even though she complains of diarrhea for a month. She reports she is passing a lot of flatus and is having some mild leakage with flatus. She has not ambulated out of the hallway. She was seen by physical therapy yesterday. Current Medications Current Medications Current Medications Ciprofloxacin 400 mg/IV Miscellaneous Supplies 200 ml @ 200 mls/hr Q12H IV Last administered on 08/20/18at 04:03; Start 08/18/18 at 03:00 Diatrizoate Meglum/ Diatrizoate Sod (Gastrografin) 10 ml Q30M PO Last administered on 08/17/18at 20:37; Start 08/17/18 at 20:00; Stop 08/17/18 at 20:31; Status DC Enoxaparin Sodium (Lovenox) 40 mg DAILY SC Last administered on 08/19/18at 08:57; Start 08/18/18 at 09:00 Home Med (Med Rec Complete!) ASDIRECTED XX ; Start 08/18/18 at 01:30; Stop 08/18/18 at 01:30; Status DC Ketorolac Tromethamine (ToRADol) 30 mg Q6HP PRN IV MILD/MODERATE PAIN (PS 1-7); Start 08/18/18 at 01:30; Stop 08/23/18 at 01:29 Lactated Ringer's 1,000 ml @ 125 mls/hr Q8H IV Last administered on 08/19/18at 21:08; Start 08/18/18 at 01:17 Lorazepam (Ativan) 1 mg STAT STAT PO ; Start 08/17/18 at 22:33; Stop 08/17/18 at 22:34; Status Cancel Metronidazole 500 mg/IV Miscellaneous Supplies 100 ml @ 100 mls/hr Q8H IV Last administered on 08/20/18at 05:20; Start 08/18/18 at 04:00 Morphine Sulfate (Morphine Sulfate Inj) 2 mg Q30M PRN IV MODERATE PAIN (PS 5-7) Last administered on 08/17/18 19:59; Start 08/17/18 at 19:30; Stop 08/18/18 at 01:26; Status DC Morphine Sulfate (Morphine Sulfate Inj) 4 mg Q2HP PRN IV SEVERE PAIN (PS 8-10); Start 08/18/18 at 01:30 Ondansetron HCl (ZOFRAN INJection) 4 mg Q6HP PRN IV NAUSEA OR VOMITING; Start 08/18/18 at 01:30 Oxycodone/ Acetaminophen (Percocet 5mg/ 325mg Tablet) 1 tab Q4HP PRN PO MODERATE PAIN (PS 5-7) Last administered on 08/18/18at 01:58; Start 08/18/18 at 01:30 Oxycodone/ Acetaminophen (Percocet 5mg/ 325mg Tablet) 2 tab Q6HP PRN PO SEVERE PAIN (PS 8-10); Start 08/18/18 at 01:30 Senna/Docusate Sodium (Senokot S) 1 tab BID PO Last administered on 08/19/18at 21:09; Start 08/18/18 at 09:00 Sodium Chloride 1,000 ml @ 100 mls/hr Q10H IV Last administered on 08/17/18at 19:58; Start 08/17/18 at 19:30; Stop 08/18/18 at 01:25; Status DC Allergies Coded Allergies: bee venom protein (honey bee) (Verified Allergy, Intermediate, SWELLING AND REDNESS, 08/17/18) spider venom (Unverified Allergy, Intermediate, BLACK AND BLUE, SWELLING, 08/18/18) TAPE (Verified Allergy, Unknown, SENSITIVIY, 08/17/18) Coconut (Verified Adverse Reaction, Intermediate, VIOLENTLY ILL, 08/17/18) Crab (Verified Adverse Reaction, Intermediate, VIOLENTLY ILL, 08/17/18) tree nut (Verified Adverse Reaction, Intermediate, MIGRAINES, 08/17/18) aspirin (Verified Adverse Reaction, Unknown, 08/17/18) Objective Physical Examination Examination GENERAL APPEARANCE: Patient looks very comfortable SKIN: Warm and dry. HEENT: Mild pale palpebral conjunctiva. NECK: Supple, no thyromegaly. No obvious jugular venous distention. LUNGS: Clear to auscultation bilaterally. No wheezing appreciated. HEART: No chest wall abnormalities. Regular rate and rhythm with no murmurs appreciated. ABDOMEN: Abdomen is relatively flat, soft, and nondistended. With tenderness over the right lower quadrant area appears resolved. She has very minimal tenderness over the left lower quadrant area and slightly more at the suprapubic area without guarding.. EXTREMITIES: No extremity edema. Vital Signs Vital Signs Date Time Temp Pulse Resp B/P (MAP) Pulse Ox O2 Delivery O2 Flow Rate FiO2 08/20/18 06:00 98.9 98 16 121/58 (79) 92 08/18/18 02:15 Room Air I&Os I&O- Last 24 Hours up to 6 AM 08/20/18 06:00 Intake Total 1600 ml Output Total 2150 ml Balance -550 ml Laboratory Data Labs 24H Laboratory Tests 2 08/20/18 05:12: Immature Granulocyte % (Auto) 0.6, White Blood Count 15.9H, Red Blood Count 3.23L, Hemoglobin 8.8L, Hematocrit 28.5L, Mean Corpuscular Volume 88.2, Mean Corpuscular Hemoglobin 27.2, Mean Corpuscular Hemoglobin Concent 30.9L, Red Cell Distribution Width 14.0, Platelet Count 679H, Neutrophils (%) (Auto) 77.2H, Lymphocytes (%) (Auto) 14.8L, Monocytes (%) (Auto) 6.3H, Eosinophils (%) (Auto) 0.9, Basophils (%) (Auto) 0.2, Neutrophils # (Auto) 12.3H, Lymphocytes # (Auto) 2.4, Monocytes # (Auto) 1.0H, Eosinophils # (Auto) 0.2, Basophils # (Auto) 0.0, Nucleated Red Blood Cells % (auto) 0.0, Anion Gap 4L, Glomerular Filtration Rate > 60.0, Blood Urea Nitrogen 5L, Creatinine 0.57, Sodium Level 138, Potassium Level 3.3L, Chloride Level 105, Carbon Dioxide Level 29, Calcium Level 8.0L, C- Reactive Protein, Quantitative 14.80H CBC/BMP Laboratory Tests 08/20/18 05:12 Red Blood Count 3.23 L, Mean Corpuscular Volume 88.2, Mean Corpuscular Hemoglobin 27.2, Mean Corpuscular Hemoglobin Concent 30.9 L, Red Cell Distribution Width 14.0, Neutrophils (%) (Auto) 77.2 H, Lymphocytes (%) (Auto) 14.8 L, Monocytes (%) (Auto) 6.3 H, Eosinophils (%) (Auto) 0.9, Basophils (%) (Auto) 0.2, Neutrophils # (Auto) 12.3 H, Lymphocytes # (Auto) 2.4, Monocytes # (Auto) 1.0 H, Eosinophils # (Auto) 0.2, Basophils # (Auto) 0.0, Calcium Level 8.0 L Microbiology Microbiology 08/17/18 Blood Culture - Preliminary, Resulted No Growth after 48 hours. All Specime... 08/17/18 Blood Culture - Preliminary, Resulted No Growth after 48 hours. All Specime... Impression Complicated Diverticulitis with abscess (?anterior rectal wall) anemia malnutrition (albumin 1.9 on admission) reported 20 lb weight loss Clinically she appears improved. She is not showing any severe signs of systemic inflammatory reaction from her diverticulitis. I told her we will continue IV antibiotics through the weekend and repeat a CT scan of the abdomen and pelvis on Thursday to see if there is any progression of the anterior rectal wall abscess or drink any change that may make this amenable to percutaneous drainage. I will allow her some soft foods as well as ensure to try to build up her nutritional level. She has some worsening of her anemia secondary to Hemabate infusion. I will change her IV fluids to replete her potassium. For the meantime physical therapy will be working with her to try to get her stronger. I will give her a dose of milk of magnesia to aid her with bowel movements. Plan / VTE VTE Prophylaxis Ordered?: Yes DIMITRY HOOD MD Aug 20, 2018 07:46
[2018-08-20] MEDS ORDERED: MOM 30ML SUSPENSION UDC PO ONE (13:00)
[2018-08-20 14:00] VITALS: BP 111/63
[2018-08-20 22:00] VITALS: BP 120/72
[2018-08-21] MEDS: KCL 20MEQ IN D5/0.45NS 1000ML 1,000 ML IV SCH ×3 (03:04→21:31)
[2018-08-21] MEDS: CIPROFLOXACIN 400 MG in APPROPRIATE DILUENT 1 EA IV SCH ×2 (03:04→15:00)
[2018-08-21] MEDS: metroNIDAZOLE 500 MG in APPROPRIATE DILUENT 1 EA IV SCH ×3 (04:00→19:57)
[2018-08-21 06:00] VITALS: BP 122/73
[2018-08-21 06:01] LABS: BASO % 0.2 % (0.0-1.0); EOS # 0.2 10^3/uL (0.0-0.50); EOS % 1.2 % (0.0-3.0); HEMATOCRIT 28.6 % (36.0-47.0); HEMOGLOBIN 8.8 g/dl (12.0-15.5); LYMPH # 2.9 10^3/uL (1.5-4.5); LYMPH % 17.8 % (24.0-44.0); MEAN CORPUSCULAR HEMOGLOBIN 27.4 pg (27.0-33.0); MEAN CORPUSCULAR HGB CONC 30.8 g/dl (32.0-36.5); MEAN CORPUSCULAR VOLUME 89.1 fl (80.0-96.0); MONO # 1.1 10^3/uL (0.0-0.8); MONO % 6.5 % (0.0-5.0); NEUTROPHILS % 73.7 % (36.0-66.0); PLATELET COUNT, AUTOMATED 642 10^3/uL (150-450); RED BLOOD COUNT 3.21 10^6/uL (4.00-5.40); WHITE BLOOD COUNT 16.4 10^3/uL (4.0-10.0)
[2018-08-21 06:22] LABS: BLOOD UREA NITROGEN 6 MG/DL (7-18); CALCIUM LEVEL 7.8 MG/DL (8.8-10.2); CARBON DIOXIDE LEVEL 27 MEQ/L (21-32); CHLORIDE LEVEL 108 MEQ/L (98-107); CREATININE FOR GFR 0.61 MG/DL (0.55-1.30); GLOMERULAR FILTRATION RATE > 60.0 (>45); GLUCOSE, FASTING 109 MG/DL (70-100); POTASSIUM SERUM 3.4 MEQ/L (3.5-5.1); SODIUM LEVEL 140 MEQ/L (136-145)
[2018-08-21] MEDS: SENOKOT S TAB PO SCH ×2 (07:22→19:52)
[2018-08-21] MEDS: ENOXAPARIN 40 MG/0.4 ML SYRINGE (J1650) SC SCH (08:47)
[2018-08-21 14:00] VITALS: BP 116/63
--- NOTE | 2018-08-21 21:52 | IPNPDOC ---
Text Note Date of Service The patient was seen on 08/21/18. NOTE No acute events overnight. She is tolerating diet. Denies nausea, emesis, or fevers. She had multipe loose BMs yesterday without any laxtives. She is still having LLQ and pelvic pains. VSSAF NAD abd - soft, TTP LLQ and suprapubic, nd, incisions c/d/i labs - see below A) 68y/o female with first episode of diverticulitis that is complicated with a pelvic abscess P) liquid diet ambulate IV abx repeat CT tomorrow to see if abscess has improved. If not, then we will attempt IR drainage on Thursday. Shayne Roche DO A-FIB/CHADSVASC A-FIB History Current/History of A-Fib/PAF?: No VS,Fishbone, I+O VS, Fishbone, I+O Laboratory Tests 08/21/18 05:25 Red Blood Count 3.21 L, Mean Corpuscular Volume 89.1, Mean Corpuscular Hemoglobin 27.4, Mean Corpuscular Hemoglobin Concent 30.8 L, Red Cell Distribution Width 14.1, Neutrophils (%) (Auto) 73.7 H, Lymphocytes (%) (Auto) 17.8 L, Monocytes (%) (Auto) 6.5 H, Eosinophils (%) (Auto) 1.2, Basophils (%) (Auto) 0.2, Neutrophils # (Auto) 12.0 H, Lymphocytes # (Auto) 2.9, Monocytes # (Auto) 1.1 H, Eosinophils # (Auto) 0.2, Basophils # (Auto) 0.0, Calcium Level 7.8 L Vital Signs Date Time Temp Pulse Resp B/P (MAP) Pulse Ox O2 Delivery O2 Flow Rate FiO2 08/21/18 14:00 98.4 98 18 116/63 (80) 96 08/18/18 02:15 Room Air I&O- Last 24 Hours up to 6 AM 08/21/18 06:00 Intake Total 1990 ml Output Total 1700 ml Balance 290 ml GLORIA ROCHE DO Aug 21, 2018 21:52
[2018-08-21 22:00] VITALS: BP 131/65
[2018-08-22] MEDS: CIPROFLOXACIN 400 MG in APPROPRIATE DILUENT 1 EA IV SCH ×2 (02:54→15:02)
[2018-08-22] MEDS: metroNIDAZOLE 500 MG in APPROPRIATE DILUENT 1 EA IV SCH ×3 (04:23→19:59)
[2018-08-22 06:00] VITALS: BP 118/65
[2018-08-22 06:03] LABS: BASO % 0.2 % (0.0-1.0); EOS # 0.3 10^3/uL (0.0-0.50); EOS % 1.8 % (0.0-3.0); HEMATOCRIT 27.4 % (36.0-47.0); HEMOGLOBIN 8.6 g/dl (12.0-15.5); LYMPH # 2.4 10^3/uL (1.5-4.5); LYMPH % 16.6 % (24.0-44.0); MEAN CORPUSCULAR HEMOGLOBIN 28.1 pg (27.0-33.0); MEAN CORPUSCULAR HGB CONC 31.4 g/dl (32.0-36.5); MEAN CORPUSCULAR VOLUME 89.5 fl (80.0-96.0); MONO % 6.7 % (0.0-5.0); NEUTROPHILS # 10.8 10^3/uL (1.8-7.7); NEUTROPHILS % 74.1 % (36.0-66.0); PLATELET COUNT, AUTOMATED 604 10^3/uL (150-450); RED BLOOD COUNT 3.06 10^6/uL (4.00-5.40); WHITE BLOOD COUNT 14.5 10^3/uL (4.0-10.0)
[2018-08-22 06:23] LABS: BLOOD UREA NITROGEN 6 MG/DL (7-18); C REACTIVE PROTEIN QUANTITATIV 7.73 MG/DL (0.00-0.30); CALCIUM LEVEL 7.9 MG/DL (8.8-10.2); CARBON DIOXIDE LEVEL 25 MEQ/L (21-32); CHLORIDE LEVEL 109 MEQ/L (98-107); CREATININE FOR GFR 0.56 MG/DL (0.55-1.30); GLOMERULAR FILTRATION RATE > 60.0 (>45); GLUCOSE, FASTING 100 MG/DL (70-100); POTASSIUM SERUM 3.4 MEQ/L (3.5-5.1); SODIUM LEVEL 140 MEQ/L (136-145)
[2018-08-22] MEDS: GASTROGRAFIN SOLUTION 30ML PO SCH ×2 (06:40→07:06)
[2018-08-22] MEDS ORDERED: ISOVUE-370 76% 100ML VIAL (Q9967) As Ordered ONE (07:52)
--- NOTE | 2018-08-22 08:31 | IPNPDOC ---
Text Note Date of Service The patient was seen on 08/22/18. NOTE No acute events overnight. She is tolerating diet. Denies nausea, emesis, or fevers. She is still having LLQ and pelvic pains, but they are improved. VSSAF NAD abd - soft, TTP LLQ and suprapubic, nd, incisions c/d/i labs - wbc - 16.4>14.5 A) 68y/o female with first episode of diverticulitis that is complicated with a pelvic abscess P) liquid diet ambulate IV abx repeat CT this am to see if abscess has improved. If not, then we will attempt IR drainage tomorrow Shayne Roche DO A-FIB/CHADSVASC A-FIB History Current/History of A-Fib/PAF?: No VS,Fishbone, I+O VS, Fishbone, I+O Laboratory Tests 08/22/18 05:28 Calcium Level 7.9 L 08/22/18 05:29 Red Blood Count 3.06 L, Mean Corpuscular Volume 89.5, Mean Corpuscular Hemoglobin 28.1, Mean Corpuscular Hemoglobin Concent 31.4 L, Red Cell Distribution Width 14.3, Neutrophils (%) (Auto) 74.1 H, Lymphocytes (%) (Auto) 16.6 L, Monocytes (%) (Auto) 6.7 H, Eosinophils (%) (Auto) 1.8, Basophils (%) (Auto) 0.2, Neutrophils # (Auto) 10.8 H, Lymphocytes # (Auto) 2.4, Monocytes # (Auto) 1.0 H, Eosinophils # (Auto) 0.3, Basophils # (Auto) 0.0 Vital Signs Date Time Temp Pulse Resp B/P (MAP) Pulse Ox O2 Delivery O2 Flow Rate FiO2 08/22/18 06:00 98.2 86 18 118/65 (82) 95 08/18/18 02:15 Room Air I&O- Last 24 Hours up to 6 AM 08/22/18 06:00 Intake Total 2630 ml Output Total 1300 ml Balance 1330 ml GLORIA ROCHE DO Aug 22, 2018 08:31
[2018-08-22] MEDS: SENOKOT S TAB PO SCH ×2 (09:00→19:58)
[2018-08-22] MEDS: ENOXAPARIN 40 MG/0.4 ML SYRINGE (J1650) SC SCH (09:29)
[2018-08-22] MEDS: KCL 20MEQ IN D5/0.45NS 1000ML 1,000 ML IV SCH (12:26)
[2018-08-22 14:00] VITALS: BP 122/73
[2018-08-22 22:00] VITALS: BP 135/77
[2018-08-23] MEDS: KCL 20MEQ IN D5/0.45NS 1000ML 1,000 ML IV SCH ×2 (02:02→15:16)
[2018-08-23] MEDS: CIPROFLOXACIN 400 MG in APPROPRIATE DILUENT 1 EA IV SCH ×2 (02:02→15:33)
[2018-08-23] MEDS: metroNIDAZOLE 500 MG in APPROPRIATE DILUENT 1 EA IV SCH ×3 (03:33→20:15)
[2018-08-23 06:00] VITALS: BP 120/67
[2018-08-23 07:21] LABS: BASO # 0.1 10^3/uL (0.0-0.2); BASO % 0.4 % (0.0-1.0); EOS # 0.2 10^3/uL (0.0-0.50); EOS % 1.7 % (0.0-3.0); HEMOGLOBIN 8.8 g/dl (12.0-15.5); LYMPH # 2.2 10^3/uL (1.5-4.5); LYMPH % 15.6 % (24.0-44.0); MEAN CORPUSCULAR HEMOGLOBIN 28.1 pg (27.0-33.0); MEAN CORPUSCULAR HGB CONC 31.4 g/dl (32.0-36.5); MEAN CORPUSCULAR VOLUME 89.5 fl (80.0-96.0); MONO # 0.8 10^3/uL (0.0-0.8); NEUTROPHILS # 10.5 10^3/uL (1.8-7.7); NEUTROPHILS % 75.7 % (36.0-66.0); PLATELET COUNT, AUTOMATED 617 10^3/uL (150-450); RED BLOOD COUNT 3.13 10^6/uL (4.00-5.40); WHITE BLOOD COUNT 13.9 10^3/uL (4.0-10.0)
[2018-08-23 07:43] LABS: BLOOD UREA NITROGEN 5 MG/DL (7-18); C REACTIVE PROTEIN QUANTITATIV 5.95 MG/DL (0.00-0.30); CALCIUM LEVEL 7.7 MG/DL (8.8-10.2); CARBON DIOXIDE LEVEL 26 MEQ/L (21-32); CHLORIDE LEVEL 109 MEQ/L (98-107); CREATININE FOR GFR 0.55 MG/DL (0.55-1.30); GLOMERULAR FILTRATION RATE > 60.0 (>45); GLUCOSE, FASTING 97 MG/DL (70-100); POTASSIUM SERUM 3.9 MEQ/L (3.5-5.1); SODIUM LEVEL 141 MEQ/L (136-145)
--- NOTE | 2018-08-23 08:31 | IPNPDOC ---
Subjective General Date/Time Seen The patient was seen on 08/23/18 at 08:27. Subject Chief Complaint/History The patient is a 68-year-old female admitted with a reason for visit of Acute Diverticulitis. She reports a couple of loose stools over the weekend. She has been afebrile. Still has poor appetite but tolerating liquid fluids without any nausea or vomiting. She reports some discomfort over pelvic area. She had a CT scan of the abdomen and pelvis done yesterday. At this time this has not been officially read yet. Current Medications Current Medications Current Medications Ciprofloxacin 400 mg/IV Miscellaneous Supplies 200 ml @ 200 mls/hr Q12H IV Las t administered on 08/23/18at 02:02; Start 08/18/18 at 03:00 Diatrizoate Meglum/ Diatrizoate Sod (Gastrografin) 10 ml Q30M PO Last administered on 08/17/18at 20:37; Start 08/17/18 at 20:00; Stop 08/17/18 at 20:31; Status DC Diatrizoate Meglum/ Diatrizoate Sod (Gastrografin) 10 ml Q30M PO Last admini stered on 08/22/18at 07:06; Start 08/22/18 at 06:30; Stop 08/22/18 at 07:01; Status DC Enoxaparin Sodium (Lovenox) 40 mg DAILY SC Last administered on 08/22/18at 09:29; Start 08/18/18 at 09:00 Home Med (Med Rec Complete!) ASDIRECTED XX ; Start 08/18/18 at 01:30; Stop 08/18/18 at 01:30; Status DC Ketorolac Tromethamine (ToRADol) 30 mg Q6HP PRN IV MILD/MODERATE PAIN (PS 1-7); Start 08/18/18 at 01:30; Stop 08/23/18 at 01:29; Status DC Lactated Ringer's 1,000 ml @ 125 mls/hr Q8H IV Last administered on 08/19/18at 21:08; Start 08/18/18 at 01:17; Stop 08/20/18 at 07:46; Status DC Lorazepam (Ativan) 1 mg STAT STAT PO ; Start 08/17/18 at 22:33; Stop 08/17/18 at 22:34; Status Cancel Metronidazole 500 mg/IV Miscellaneous Supplies 100 ml @ 100 mls/hr Q8H IV Last administered on 08/23/18at 03:33; Start 08/18/18 at 04:00 Morphine Sulfate (Morphine Sulfate Inj) 2 mg Q30M PRN IV MODERATE PAIN (PS 5-7) Last administered on 08/17/18at 19:59; Start 08/17/18 at 19:30; Stop 08/18/18 at 01:26; Status DC Morphine Sulfate (Morphine Sulfate Inj) 4 mg Q2HP PRN IV SEVERE PAIN (PS 8-10); Start 08/18/18 at 01:30 Ondansetron HCl (ZOFRAN INJection) 4 mg Q6HP PRN IV NAUSEA OR VOMITING; Start 08/18/18 at 01:30 Oxycodone/ Acetaminophen (Percocet 5mg/ 325mg Tablet) 1 tab Q4HP PRN PO MODERATE PAIN (PS 5-7) Last administered on 08/18/18at 01:58; Start 08/18/18 at 01:30 Oxycodone/ Acetaminophen (Percocet 5mg/ 325mg Tablet) 2 tab Q6HP PRN PO SEVERE PAIN (PS 8-10); Start 08/18/18 at 01:30 Potassium Chloride/Dextrose/ Sod Cl 1,000 ml @ 75 mls/hr [id number] IV Last administered on 08/23/18at 02:02; Start 08/20/18 at 07:45 Senna/Docusate Sodium (Senokot S) 1 tab BID PO Last administered on 08/20/18at 0 8:23; Start 08/18/18 at 09:00 Sodium Chloride 1,000 ml @ 100 mls/hr Q10H IV Last administered on 08/17/18at 19:58; Start 08/17/18 at 19:30; Stop 08/18/18 at 01:25; Status DC Allergies Coded Allergies: bee venom protein (honey bee) (Verified Allergy, Intermediate, SWELLING AND REDNESS, 08/17/18) spider venom (Unverified Allergy, Intermediate, BLACK AND BLUE, SWELLING, 08/18/18) TAPE (Verified Allergy, Unknown, SENSITIVIY, 08/17/18) Coconut (Verified Adverse Reaction, Intermediate, VIOLENTLY ILL, 08/17/18) Crab (Verified Adverse Reaction, Intermediate, VIOLENTLY ILL, 08/17/18) tree nut (Verified Adverse Reaction, Intermediate, MIGRAINES, 08/17/18) aspirin (Verified Adverse Reaction, Unknown, 08/17/18) Objective Physical Examination Examination GENERAL APPEARANCE: Relatively comfortable. SKIN: Warm and moist. HEENT: Mild pale palpebral conjunctiva. NECK: Supple, no thyromegaly. No obvious jugular venous distention. LUNGS: Clear to auscultation bilaterally. No wheezing appreciated. HEART: No chest wall abnormalities. Regular rate and rhythm with no murmurs appreciated. ABDOMEN: Abdomen is nondistended, soft, and mildly tender to palpation over the left lower quadrant area going towards the suprapubic area. Nontender in the right lower quadrant area. EXTREMITIES: No edema. Vital Signs Vital Signs Date Time Temp Pulse Resp B/P (MAP) Pulse Ox O2 Delivery O2 Flow Rate FiO2 08/23/18 06:00 97.8 83 18 120/67 (84) 96 08/18/18 02:15 Room Air I&Os I&O- Last 24 Hours up to 6 AM 08/23/18 05:59 Intake Total 2070 ml Output Total 1750 ml Balance 320 ml Laboratory Data Labs 24H Laboratory Tests 2 08/23/18 07:09: Immature Granulocyte % (Auto) 0.6, White Blood Count 13.9H, Red Blood Count 3.13L, Hemoglobin 8.8L, Hematocrit 28.0L, Mean Corpuscular Volume 89.5, Mean Corpuscular Hemoglobin 28.1, Mean Corpuscular Hemoglobin Concent 31.4L, Red Cell Distribution Width 14.6H, Platelet Count 617H, Neutrophils (%) (Auto) 75.7H, Lymphocytes (%) (Auto) 15.6L, Monocytes (%) (Auto) 6.0H, Eosinophils (%) (Auto) 1.7, Basophils (%) (Auto) 0.4, Neutrophils # (Auto) 10.5H, Lymphocytes # (Auto) 2.2, Monocytes # (Auto) 0.8, Eosinophils # (Auto) 0.2, Basophils # (Auto) 0.1, Nucleated Red Blood Cells % (auto) 0.0, Anion Gap 6L, Glomerular Filtration Rate > 60.0, Blood Urea Nitrogen 5L, Creatinine 0.55, Sodium Level 141, Potassium Level 3.9, Chloride Level 109H, Carbon Dioxide Level 26, Calcium Level 7.7L, C- Reactive Protein, Quantitative 5.95H CBC/BMP Laboratory Tests 08/23/18 07:09 Red Blood Count 3.13 L, Mean Corpuscular Volume 89.5, Mean Corpuscular Hemoglobin 28.1, Mean Corpuscular Hemoglobin Concent 31.4 L, Red Cell Distribution Width 14.6 H, Neutrophils (%) (Auto) 75.7 H, Lymphocytes (%) (Auto) 15.6 L, Monocytes (%) (Auto) 6.0 H, Eosinophils (%) (Auto) 1.7, Basophils (%) (Auto) 0.4, Neutrophils # (Auto) 10.5 H, Lymphocytes # (Auto) 2.2, Monocytes # (Auto) 0.8, Eosinophils # (Auto) 0.2, Basophils # (Auto) 0.1, Calcium Level 7.7 L Microbiology Microbiology 08/17/18 Blood Culture - Final, Complete NO GROWTH AFTER 5 DAYS 08/17/18 Blood Culture - Final, Complete NO GROWTH AFTER 5 DAYS Impression Complicated diverticulitis with anterior rectal wall abscess Anemia Hypokalemia I reviewed the images of the CT scan with her. As of this time consistent been officially read yet though to me this seems to have been mildly worsened with some bubbles of air behind the rectum now consistent with also posterior rectal wall abscess and continues to be inflamed. This despite her white cell count coming down and her CRP also coming down. Our weekend radiologist was not comfortable reading the CT and is awaiting our regular radiologist commented discuss it with him. As it stands, I told her that we most likely she will need to go to the operating room this will need resection and most likely a temporary ostomy. Specially Fact that the exact etiology is still not fully elucidated this point. There are some other temporizing measures including laparoscopic bulge and drain placement but this may also fail and will not give us more information about etiology. I went back to the patient after talking to Dr. Martin from radiology. As I have previously explained to her, there continues to be significant inflammation around the rectosigmoid area with probably some bubbles of air outside of the posterior wall of the rectum and the possibility that there is a colon mass in the middle of this. There is no drainable fluid collection. At this point we will proceed with surgery. I will schedule her for diagnostic laparoscopy, which most likely may need laparotomy, resection of the thin portion of the rectum and sigmoid and most likely a temporary colostomy. For the meantime, I will set her up for PICC line for TPN use. Turns out that she was not getting Ensure over the weekend that she did not like the regular Ensure. I will change this to the Ensure clears which she was taking prior to the weekend. I'll also give her some milk of magnesia to try and get a little bit of prep intact for the surgery. Plan / VTE VTE Prophylaxis Ordered?: Yes DIMITRY HOOD MD Aug 23, 2018 08:31
--- NOTE | 2018-08-23 08:36 | REP ---
CT ABDOMEN AND PELVIS WITH CONTRAST: HISTORY: Diverticulitis. CONTRAST: Isovue 370, 100 mL. COMPARISON: 08/17/2018. There is fatty infiltration of the liver. There is mild enlargement of the gallbladder. Calcifications are present in the gallbladder consistent with cholelithiasis. Calcifications are present in the spleen. A focal area of scarring is present in the upper pole of the left kidney. The pancreas, adrenal glands, and right kidney are normal in appearance. The visualized lungs are clear. A mild amount of stool is present in the descending colon. A heterogeneous mass with a thick enhancing rim is present that appears to be arising from the rectum. Punctate collections of air are present in the mass. There is no change in size compared to the previous study. Surrounding edema is present. There is mass effect on the adjacent urinary bladder and uterus. There is less distension of the rectum compared to the previous study. IMPRESSION: There has been no change in size of the rectal mass compared to the previous study. Electronically Signed by Kristian Khan MD 08/23/2018 08:47 A
[2018-08-23] MEDS: ENOXAPARIN 40 MG/0.4 ML SYRINGE (J1650) SC SCH (08:47)
[2018-08-23] MEDS: SENOKOT S TAB PO SCH ×2 (08:48→20:15)
[2018-08-23] MEDS: POTASSIUM CHLORIDE 10 MEQ SR TABLET PO SCH (08:53)
[2018-08-23] MEDS: MOM 30ML SUSPENSION UDC PO SCH ×2 (12:08→20:15)
[2018-08-23 14:00] VITALS: BP 124/69
[2018-08-23 22:00] VITALS: BP 126/70
[2018-08-24] MEDS: CIPROFLOXACIN 400 MG in APPROPRIATE DILUENT 1 EA IV SCH ×2 (02:53→16:00)
[2018-08-24] MEDS: metroNIDAZOLE 500 MG in APPROPRIATE DILUENT 1 EA IV SCH ×3 (04:41→20:12)
[2018-08-24 06:00] VITALS: BP 124/74
--- NOTE | 2018-08-24 07:23 | IPNPDOC ---
Subjective General Date/Time Seen The patient was seen on 08/24/18 at 07:19. Subject Chief Complaint/History The patient is a 68-year-old female admitted with a reason for visit of Acute Diverticulitis. Patient overall is doing just about the same, no decompensation for the past 24 hours. She's having multiple loose stools secondary to the milk of magnesia that I have started her on to get some slow bowel prep on her. She is denying any severe abdominal discomfort, nausea, vomiting, bloating. She is on some soft foods with Ensure. She is awaiting placement of PICC line. Current Medications Current Medications Current Medications Ciprofloxacin 400 mg/IV Miscellaneous Supplies 200 ml @ 200 mls/hr Q12H IV Last administered on 08/24/18at 02:53; Start 08/18/18 at 03:00 Diatrizoate Meglum/ Diatrizoate Sod (Gastrografin) 10 ml Q30M PO Last administered on 08/17/18at 20:37; Start 08/17/18 at 20:00; Stop 08/17/18 at 20:31; Status DC Diatrizoate Meglum/ Diatrizoate Sod (Gastrografin) 10 ml Q30M PO Last admin istered on 08/22/18at 07:06; Start 08/22/18 at 06:30; Stop 08/22/18 at 07:01; Status DC Enoxaparin Sodium (Lovenox) 40 mg DAILY SC Last administered on 08/23/18at 08:47; Start 08/18/18 at 09:00 Home Med (Med Rec Complete!) ASDIRECTED XX ; Start 08/18/18 at 01:30; Stop 08/18/18 at 01:30; Status DC Ketorolac Tromethamine (ToRADol) 30 mg Q6HP PRN IV MILD/MODERATE PAIN (PS 1-7); Start 08/18/18 at 01:30; Stop 08/23/18 at 01:29; Status DC Lactated Ringer's 1,000 ml @ 125 mls/hr Q8H IV Last administered on 08/19/18at 21:08; Start 08/18/18 at 01:17; Stop 08/20/18 at 07:46; Status DC Lorazepam (Ativan) 1 mg STAT STAT PO ; Start 08/17/18 at 22:33; Stop 08/17/18 at 22:34; Status Cancel Magnesium Hydroxide (Milk Of Magnesia) 30 ml BID PO Last administered on 20:15; Start 08/23/18 at 09:00 Metronidazole 500 mg/IV Miscellaneous Supplies 100 ml @ 100 mls/hr Q8H IV Last administered on 08/24/18 04:41; Start 08/18/18 at 04:00 Morphine Sulfate (Morphine Sulfate Inj) 2 mg Q30M PRN IV MODERATE PAIN (PS 5-7) Last administered on 08/17/18 19:59; Start 08/17/18 at 19:30; Stop 08/18/18 at 01:26; Status DC Morphine Sulfate (Morphine Sulfate Inj) 4 mg Q2HP PRN IV SEVERE PAIN (PS 8-10); Start 08/18/18 at 01:30 Ondansetron HCl (ZOFRAN INJection) 4 mg Q6HP PRN IV NAUSEA OR VOMITING; Start 08/18/18 at 01:30 Oxycodone/ Acetaminophen (Percocet 5mg/ 325mg Tablet) 1 tab Q4HP PRN PO MODERATE PAIN (PS 5-7) Last administered on 08/18/18 01:58; Start 08/18/18 at 01:30 Oxycodone/ Acetaminophen (Percocet 5mg/ 325mg Tablet) 2 tab Q6HP PRN PO SEVERE PAIN (PS 8-10); Start 08/18/18 at 01:30 Potassium Chloride/Dextrose/ Sod Cl 1,000 ml @ 75 mls/hr [id number] IV Last administered on 08/23/18at 15:16; Start 08/20/18 at 07:45 Potassium Chloride (Micro-K Extencaps) 40 meq DAILY PO Last administered on 08/23/18 08:53; Start 08/23/18 at 09:00 Senna/Docusate Sodium (Senokot S) 1 tab BID PO Last administered on 08/23/18 20:15; Start 08/18/18 at 09:00 Sodium Chloride 1,000 ml @ 100 mls/hr Q10H IV Last administered on 08/17/18 19:58; Start 08/17/18 at 19:30; Stop 08/18/18 at 01:25; Status DC Allergies Coded Allergies: bee venom protein (honey bee) (Verified Allergy, Intermediate, SWELLING AND REDNESS, 08/17/18) spider venom (Unverified Allergy, Intermediate, BLACK AND BLUE, SWELLING, 08/18/18) TAPE (Verified Allergy, Unknown, SENSITIVIY, 08/17/18) Coconut (Verified Adverse Reaction, Intermediate, VIOLENTLY ILL, 08/17/18) Crab (Verified Adverse Reaction, Intermediate, VIOLENTLY ILL, 08/17/18) tree nut (Verified Adverse Reaction, Intermediate, MIGRAINES, 08/17/18) aspirin (Verified Adverse Reaction, Unknown, 08/17/18) Objective Physical Examination Examination GENERAL APPEARANCE: Comfortable. SKIN: Warm and moist. HEENT: Normocephalic, atraumatic. Drummond palpebral conjunctiva, anicteric sclerae. Lips and mucosa appear moist. NECK: Supple, no thyromegaly. No obvious jugular venous distention. LUNGS: Clear to auscultation bilaterally. No wheezing appreciated. HEART: No chest wall abnormalities. Regular rate and rhythm with no murmurs appreciated. ABDOMEN: Abdomen is relatively flat, soft, mildly tympanitic to percussion. Main area of remaining tenderness is over the suprapubic area with no guarding. The right lower quadrant tenderness seems to have fully resolved. She has some mild left lower quadrant tenderness only in deep palpation. EXTREMITIES: No edema. Vital Signs Vital Signs Date Time Temp Pulse Resp B/P (MAP) Pulse Ox O2 Delivery O2 Flow Rate FiO2 08/24/18 06:00 97.4 90 18 124/74 (91) 96 08/18/18 02:15 Room Air I&Os I&O- Last 24 Hours up to 6 AM 08/24/18 06:00 Intake Total 2255 ml Output Total 1700 ml Balance 555 ml Laboratory Data Labs 24H Laboratory Tests 2 08/24/18 05:27: C-Reactive Protein, Quantitative 3.50H Microbiology Microbiology 08/17/18 Blood Culture - Final, Complete NO GROWTH AFTER 5 DAYS 08/17/18 Blood Culture - Final, Complete NO GROWTH AFTER 5 DAYS Impression Acute Diverticulitis, complicated possible colon mass recent acute weight loss, malnutrition hypokalemia resolved anemia stable Patient is scheduled to go to OR tomorrow for diagnostic laparoscopy, possible Open Exploroty Laparotomy, segmental colon resection, and most likely a colostomy She will get a PICC line today and will start her on TPN will get type and screen in case she will need blood transfusion postop given low baseline hgb I had a phone discussion with her family yesterday explaining the recent findings on CT, possibility of mass, no improvement of the inflammation (maybe mild worsening) of the sigmoid and upper rectum. There is no drainable fluid collection. Radiologist thinks there is a good possibility of a mass within the inflamed portion of the colon. DVT prophylaxis Plan / VTE VTE Prophylaxis Ordered?: Yes DIMITRY HOOD MD Aug 24, 2018 07:23
[2018-08-24] MEDS: MOM 30ML SUSPENSION UDC PO SCH ×2 (08:52→20:12)
[2018-08-24] MEDS: POTASSIUM CHLORIDE 10 MEQ SR TABLET PO SCH (08:52)
[2018-08-24] MEDS: ENOXAPARIN 40 MG/0.4 ML SYRINGE (J1650) SC SCH (08:52)
[2018-08-24] MEDS: SENOKOT S TAB PO SCH ×2 (08:52→20:12)
[2018-08-24] MEDS: KCL 20MEQ IN D5/0.45NS 1000ML 1,000 ML IV SCH ×2 (08:53→17:35)
[2018-08-24 14:00] VITALS: BP 118/64
[2018-08-24] MEDS ORDERED: LIDOCAINE 1% MDV 20ML VIAL As Ordered ONE (14:55)
[2018-08-24] MEDS: NEOMYCIN SULFATE 500 MG TAB PO SCH ×2 (15:59→22:41)
[2018-08-24] MEDS: metroNIDAZOLE (FLAGYL) 500 MG TAB PO SCH ×2 (15:59→22:43)
[2018-08-24] MEDS: SODIUM CHLORIDE 0.9% INJ 10 ML SYR IV SCH (17:13)
[2018-08-24] MEDS ORDERED: AMINO AC/ELECTROLYTE/DEX/CALC 2,000 ML IV SCH (18:00)
[2018-08-24] MEDS ORDERED: FAT EMULSION IV 20% 500 ML IV SCH (18:00)
[2018-08-24] MEDS: HumaLOG INSULIN (NovoLOG) PER UNIT SC SCH ×2 (18:38→23:37)
[2018-08-24 22:00] VITALS: BP 137/78
[2018-08-25 02:00] VITALS: BP 129/69
[2018-08-25] MEDS: CIPROFLOXACIN 400 MG in APPROPRIATE DILUENT 1 EA IV SCH ×2 (03:11→14:08)
[2018-08-25] MEDS: metroNIDAZOLE 500 MG in APPROPRIATE DILUENT 1 EA IV SCH ×3 (04:24→21:01)
[2018-08-25] MEDS: SODIUM CHLORIDE 0.9% INJ 10 ML SYR IV SCH ×2 (05:57→18:00)
[2018-08-25 06:00] VITALS: BP 121/70
[2018-08-25] MEDS: metroNIDAZOLE (FLAGYL) 500 MG TAB PO SCH (06:17)
[2018-08-25] MEDS: NEOMYCIN SULFATE 500 MG TAB PO SCH (06:17)
[2018-08-25] MEDS: HumaLOG INSULIN (NovoLOG) PER UNIT SC SCH ×3 (06:18→18:00)
[2018-08-25] MEDS: MOM 30ML SUSPENSION UDC PO SCH ×2 (08:17→21:01)
[2018-08-25] MEDS: SENOKOT S TAB PO SCH ×2 (08:18→21:01)
[2018-08-25] MEDS: ENOXAPARIN 40 MG/0.4 ML SYRINGE (J1650) SC SCH (08:18)
[2018-08-25] MEDS: POTASSIUM CHLORIDE 10 MEQ SR TABLET PO SCH (08:18)
[2018-08-25] MEDS: KCL 20MEQ IN D5/0.45NS 1000ML 1,000 ML IV SCH (08:20)
[2018-08-25 08:39] LABS: BLOOD UREA NITROGEN 7 MG/DL (7-18); CALCIUM LEVEL 7.7 MG/DL (8.8-10.2); CARBON DIOXIDE LEVEL 26 MEQ/L (21-32); CHLORIDE LEVEL 105 MEQ/L (98-107); CREATININE FOR GFR 0.54 MG/DL (0.55-1.30); GLOMERULAR FILTRATION RATE > 60.0 (>45); GLUCOSE, FASTING 113 MG/DL (70-100); POTASSIUM SERUM 3.9 MEQ/L (3.5-5.1); SODIUM LEVEL 137 MEQ/L (136-145)
[2018-08-25 08:44] LABS: BASO # 0.1 10^3/uL (0.0-0.2); BASO % 0.3 % (0.0-1.0); EOS # 0.2 10^3/uL (0.0-0.50); EOS % 1.6 % (0.0-3.0); HEMATOCRIT 29.2 % (36.0-47.0); HEMOGLOBIN 9.2 g/dl (12.0-15.5); LYMPH # 2.7 10^3/uL (1.5-4.5); LYMPH % 17.7 % (24.0-44.0); MEAN CORPUSCULAR HEMOGLOBIN 28.3 pg (27.0-33.0); MEAN CORPUSCULAR HGB CONC 31.5 g/dl (32.0-36.5); MEAN CORPUSCULAR VOLUME 89.8 fl (80.0-96.0); MONO % 6.3 % (0.0-5.0); NEUTROPHILS # 11.1 10^3/uL (1.8-7.7); NEUTROPHILS % 73.4 % (36.0-66.0); PLATELET COUNT, AUTOMATED 686 10^3/uL (150-450); RED BLOOD COUNT 3.25 10^6/uL (4.00-5.40); WHITE BLOOD COUNT 15.1 10^3/uL (4.0-10.0)
--- NOTE | 2018-08-25 09:32 | REP ---
Procedure: PICC line insertion with Viky-Fernandez The procedure was performed under the direct supervision of Dr. Martin. The risks and benefits of the procedure were explained to the patient and informed consent was obtained. The left basilic vein was localized using ultrasound guidance. The skin was prepped and draped in a sterile fashion. 1% lidocaine was used as a local anesthetic. Using ultrasound guidance the basilic vein was cannulated and a 0.018 guidewire was inserted and advanced to the SVC using fluoroscopic guidance. The needle was removed and a 5.5 [place]i dilator and peel-away sheath was inserted over the guide wire. A 5.5 [place] dual lumen catheter was cut to length of 46 cm. The dilator was removed and the catheter was inserted over the guide wire with the tip ending in the SVC. The peel-away sheath was removed and the catheter was flushed with heparinized saline as per Hospital protocol. The catheter was affixed to the skin and a sterile dressing was applied. The patient tolerated the procedure well and there were no immediate complications. 0.2 minutes of fluoro time was utilized for this procedure. Reviewed by SERA Frances 08/24/2018 04:41 P Electronically Signed by Pablo Martin MD 08/25/2018 09:23 A
--- NOTE | 2018-08-25 12:47 | IPNPDOC ---
Subjective General Date/Time Seen The patient was seen on 08/25/18 at 12:45. Subject Chief Complaint/History The patient is a 68-year-old female admitted with a reason for visit of Acute Diverticulitis. Patient reports overall she is comfortable, feeling tired. She reports a few loose stools today. She has been afebrile. Current Medications Current Medications Current Medications Amino Ac/Electrol/ Dextrose/Calcium 2,000 ml @ 75 mls/hr ONCE@1800 IV Last administered on 08/24/18at 18:37; Start 08/24/18 at 18:00; Stop 08/25/18 at 17:59 Ciprofloxacin 400 mg/IV Miscellaneous Supplies 200 ml @ 200 mls/hr Q12H IV Last administered on 08/25/18at 03:11; Start 08/18/18 at 03:00 Diatrizoate Meglum/ Diatrizoate Sod (Gastrografin) 10 ml Q30M PO Last administered on 08/17/18at 20:37; Start 08/17/18 at 20:00; Stop 08/17/18 at 20:31; Status DC Diatrizoate Meglum/ Diatrizoate Sod (Gastrografin) 10 ml Q30M PO Last administered on 08/22/18at 07:06; Start 08/22/18 at 06:30; Stop 08/22/18 at 07:01; Status DC Enoxaparin Sodium (Lovenox) 40 mg DAILY SC Last administered on 08/25/18at 08:18; Start 08/18/18 at 09:00 Fat Emulsion Intravenous 500 ml @ 20 mls/hr ONCE@1800 IV Last administered on 08/24/18at 18:36; Start 08/24/18 at 18:00; Stop 08/25/18 at 17:59 Heparin Sodium (Heparin (Flush)) 200 units ASDIRECTED PRN IV SEE LABEL COMMENTS; Start 08/24/18 at 16:15 Heparin Sodium (Heparin (Flush)) 200 units PICC IV Last administered on 08/25/18at 05:57; Start 08/24/18 at 18:00 Home Med (Med Rec Complete!) ASDIRECTED XX ; Start 08/18/18 at 01:30; Stop 08/18/18 at 01:30; Status DC Insulin Human Lispro (HumaLOG INSULIN) See Protocol Table Q6H SC Last administered on 08/25/18at 06:18; Start 08/24/18 at 18:00; Stop 08/25/18 at 12:01; Status DC Ketorolac Tromethamine (ToRADol) 30 mg Q6HP PRN IV MILD/MODERATE PAIN (PS 1-7); Start 08/18/18 at 01:30; Stop 08/23/18 at 01:29; Status DC Lactated Ringer's 1,000 ml @ 125 mls/hr Q8H IV Last administered on 08/19/18at 21:08; Start 08/18/18 at 01:17; Stop 08/20/18 at 07:46; Status DC Lorazepam (Ativan) 1 mg STAT STAT PO ; Start 08/17/18 at 22:33; Stop 08/17/18 at 22:34; Status Cancel Magnesium Hydroxide (Milk Of Magnesia) 30 ml BID PO Last administered on 08/25/18at 08:17; Start 08/23/18 at 09:00 Metronidazole (Flagyl) 500 mg Q8H PO Last administered on 08/25/18at 06:17; Start 08/24/18 at 15:00; Stop 08/25/18 at 07:01; Status DC Metronidazole 500 mg/IV Miscellaneous Supplies 100 ml @ 100 mls/hr Q8H IV Last administered on 08/25/18at 04:24; Start 08/18/18 at 04:00 Morphine Sulfate (Morphine Sulfate Inj) 2 mg Q30M PRN IV MODERATE PAIN (PS 5-7) Last administered on 08/17/18at 19:59; Start 08/17/18 at 19:30; Stop 08/18/18 at 01:26; Status DC Morphine Sulfate (Morphine Sulfate Inj) 4 mg Q2HP PRN IV SEVERE PAIN (PS 8-10); Start 08/18/18 at 01:30 Neomycin Sulfate (Mycifradin) 1,000 mg Q8H PO Last administered on 08/25/18at 06:17; Start 08/24/18 at 15:00; Stop 08/25/18 at 07:01; Status DC Ondansetron HCl (ZOFRAN INJection) 4 mg Q6HP PRN IV NAUSEA OR VOMITING; Start 08/18/18 at 01:30 Oxycodone/ Acetaminophen (Percocet 5mg/ 325mg Tablet) 1 tab Q4HP PRN PO MODERATE PAIN (PS 5-7) Last administered on 08/18/18at 01:58; Start 08/18/18 at 01:30 Oxycodone/ Acetaminophen (Percocet 5mg/ 325mg Tablet) 2 tab Q6HP PRN PO SEVERE PAIN (PS 8-10); Start 08/18/18 at 01:30 Potassium Chloride/Dextrose/ Sod Cl 1,000 ml @ 75 mls/hr [id number] IV Last administered on 08/25/18 08:20; Start 08/20/18 at 07:45 Potassium Chloride (Micro-K Extencaps) 40 meq DAILY PO Last administered on 08/25/18 08:18; Start 08/23/18 at 09:00 Senna/Docusate Sodium (Senokot S) 1 tab BID PO Last administered on 08/25/18 08:18; Start 08/18/18 at 09:00 Sodium Chloride 1,000 ml @ 100 mls/hr Q10H IV Last administered on 08/17/18at 19:58; Start 08/17/18 at 19:30; Stop 08/18/18 at 01:25; Status DC Sodium Chloride (Saline Lock Flush) 10 ML PICC IV Last administered on 08/25/18at 05:57; Start 08/24/18 at 18:00 Sodium Chloride (Saline Lock Flush) 10ML ASDIRECTED PRN IV SEE LABEL COMMENTS; Start 08/24/18 at 16:15 Allergies Coded Allergies: bee venom protein (honey bee) (Verified Allergy, Intermediate, SWELLING AND REDNESS, 08/17/18) spider venom (Unverified Allergy, Intermediate, BLACK AND BLUE, SWELLING, 08/18/18) TAPE (Verified Allergy, Unknown, SENSITIVIY, 08/17/18) Coconut (Verified Adverse Reaction, Intermediate, VIOLENTLY ILL, 08/17/18) Crab (Verified Adverse Reaction, Intermediate, VIOLENTLY ILL, 08/17/18) tree nut (Verified Adverse Reaction, Intermediate, MIGRAINES, 08/17/18) aspirin (Verified Adverse Reaction, Unknown, 08/17/18) Objective Physical Examination Examination GENERAL APPEARANCE: Comfortable. SKIN: Warm and moist. HEENT: Mild pale palpebral conjunctiva. NECK: Supple, no thyromegaly. No obvious jugular venous distention. LUNGS: Clear to auscultation bilaterally. No wheezing appreciated. HEART: No chest wall abnormalities. Regular rate and rhythm with no murmurs appreciated. ABDOMEN: Abdomen is flat, soft, and nondistended. Tender over the suprapubic area. No longer tender over the right lower quadrant area. Minimally tender over her left lower quadrant area. No rebound or guarding. EXTREMITIES: No edema. Vital Signs Vital Signs Date Time Temp Pulse Resp B/P (MAP) Pulse Ox O2 Delivery O2 Flow Rate FiO2 08/25/18 06:00 97.6 93 18 121/70 (87) 93 I&Os I&O- Last 24 Hours up to 6 AM 08/25/18 05:59 Intake Total 1140 ml Output Total 2920 ml Balance -1780 ml Laboratory Data Labs 24H Laboratory Tests 2 08/24/18 17:39: Bedside Glucose (Misc Panel) 108 08/24/18 23:28: Bedside Glucose (Misc Panel) 131H 08/25/18 05:14: Immature Granulocyte % (Auto) 0.7, White Blood Count 15.1H, Red Blood Count 3.25L, Hemoglobin 9.2L, Hematocrit 29.2L, Mean Corpuscular Volume 89.8, Mean Corpuscular Hemoglobin 28.3, Mean Corpuscular Hemoglobin Concent 31.5L, Red Cell Distribution Width 14.8H, Platelet Count 686H, Neutrophils (%) (Auto) 73.4H, Lymphocytes (%) (Auto) 17.7L, Monocytes (%) (Auto) 6.3H, Eosinophils (%) (Auto) 1.6, Basophils (%) (Auto) 0.3, Neutrophils # (Auto) 11.1H, Lymphocytes # (Auto) 2.7, Monocytes # (Auto) 1.0H, Eosinophils # (Auto) 0.2, Basophils # (Auto) 0.1, Nucleated Red Blood Cells % (auto) 0.0, Anion Gap 6L, Glomerular Filtration Rate > 60.0, Blood Urea Nitrogen 7, Creatinine 0.54L, Sodium Level 137, Potassium Level 3.9, Chloride Level 105, Carbon Dioxide Level 26, Calcium Level 7.7L 08/25/18 05:16: C-Reactive Protein, Quantitative 2.73H 08/25/18 05:56: Bedside Glucose (Misc Panel) 125H 08/25/18 12:22: Bedside Glucose (Misc Panel) 129H CBC/BMP Laboratory Tests 08/25/18 05:14 Red Blood Count 3.25 L, Mean Corpuscular Volume 89.8, Mean Corpuscular Hemoglobin 28.3, Mean Corpuscular Hemoglobin Concent 31.5 L, Red Cell Distribution Width 14.8 H, Neutrophils (%) (Auto) 73.4 H, Lymphocytes (%) (Auto) 17.7 L, Monocytes (%) (Auto) 6.3 H, Eosinophils (%) (Auto) 1.6, Basophils (%) (Auto) 0.3, Neutrophils # (Auto) 11.1 H, Lymphocytes # (Auto) 2.7, Monocytes # (Auto) 1.0 H, Eosinophils # (Auto) 0.2, Basophils # (Auto) 0.1, Calcium Level 7.7 L Microbiology Microbiology 08/17/18 Blood Culture - Final, Complete NO GROWTH AFTER 5 DAYS 08/17/18 Blood Culture - Final, Complete NO GROWTH AFTER 5 DAYS Impression Acute complicated diverticulitis. There is also suggested a possibility of a colonic mass in the middle of the inflamed area Anemia Malnutrition Patient is scheduled for surgery today. I went in length on how I plan to do the procedure. Her daughter was at the bedside with her. All her questions and concerns specially with her concerns on having a temporary colostomy were answered by me. She has been seen by our ostomy nurse and has been premarked for possible areas for placement of her colostomy. Consent was then obtained by the patient. I've also had her sign consents for possible blood transfusion given her baseline anemia. Continue on her TPN perioperatively. Plan / VTE VTE Prophylaxis Ordered?: Yes DIMITRY HOOD MD August 25, 2018 12:47
[2018-08-25 16:00] VITALS: BP 137/72
[2018-08-25] MEDS ORDERED: ROCURONIUM BROMIDE 50 MG/5 ML VIAL As Ordered ONE ×2 (16:55→23:14)
[2018-08-25] MEDS ORDERED: dexameTHASONE 4 MG/ML 1ML VIAL (J1100) As Ordered ONE (16:55)
[2018-08-25] MEDS ORDERED: PROPOFOL 200 MG/20 ML VIAL As Ordered ONE (16:55)
[2018-08-25] MEDS ORDERED: LIDOCAINE 2% INJ 100 MG/5 ML SDV (FOR ANES.) As Ordered ONE (16:55)
[2018-08-25] MEDS ORDERED: ONDANSETRON 4MG/2ML VIAL (J2405) As Ordered ONE (16:55)
[2018-08-25] MEDS ORDERED: fentaNYL 100 MCG/2 ML INJECTION (J3010) As Ordered ONE ×2 (16:56→22:19)
[2018-08-25] MEDS ORDERED: MIDAZOLAM INJ 2 MG/2 ML VIAL (J2250) As Ordered ONE (16:56)
[2018-08-25] MEDS ORDERED: MULTIVITAMIN -ADULT INJECTION 10 ML, CR/CU/SE/MN/ZN INJ 1 ML in AMINO AC/ELECTROLYTE/DE... IV SCH (18:00)
[2018-08-25] MEDS ORDERED: FAT EMULSION IV 20% 500 ML IV SCH (18:00)
[2018-08-25] MEDS ORDERED: BUPIVACAINE HCL 0.25% 30 ML VIAL As Ordered ONE (18:06)
[2018-08-25] MEDS ORDERED: LIDOCAINE 1% SDV INJ 30 ML VIAL As Ordered ONE (18:06)
[2018-08-25] MEDS ORDERED: metroNIDAZOLE/NACL 500MG(5MG/ML)100 ML BAG (S0030) As Ordered ONE (22:04)
[2018-08-25] MEDS ORDERED: HYDROmorphone HCL 2 MG/ML 1ML VIAL (J1170) As Ordered ONE (22:35)
[2018-08-25] MEDS ORDERED: ACETAMINOPHEN 1000MG 100ML IV BTL (OFIRMEV) (J0131 PER 10MG) As Ordered ONE (22:56)
[2018-08-25] MEDS ORDERED: METOPROLOL 5 MG/5 ML VIAL As Ordered ONE (22:57)
[2018-08-25] MEDS ORDERED: GLYCOPYRROLATE INJ 0.2 MG/ML 2 ML VIAL As Ordered ONE (23:18)
[2018-08-25] MEDS ORDERED: NEOSTIGMINE 10 MG/10 ML VIAL (J2710) As Ordered ONE (23:18)
[2018-08-26] VITALS (9 sets, daily range): BP systolic 111–140; BP diastolic 58–75
[2018-08-26] MEDS ORDERED: fentaNYL 100 MCG/2 ML INJECTION (J3010) IV PRN
[2018-08-26] MEDS ORDERED: METOCLOPRAMIDE INJ 10MG/2ML VIAL (J2765) IV PRN
[2018-08-26] MEDS ORDERED: PERCOCET 5MG/325MG TAB PO PRN
[2018-08-26] MEDS ORDERED: LR 1,000 ML IV SCH ×2 (00:30)
--- NOTE | 2018-08-26 00:40 | ROOPDOC ---
[facility] Report Of Operation Report of Operation DATE OF PROCEDURE: 08/26/18 PREPROCEDURE DIAGNOSES: complicated diverticulitis. POSTPROCEDURE DIAGNOSES: hardened wall involving distal sigmoid and up to mid rectum, diverticulitis vs malignancy pending pathology. PROCEDURE: Diagnostic Laparoscopy, Exploratory laparotomy, Low anterior resection, end colostomy. SURGEON: Naveen Rosa MD ISSUING OPERATOR: MD Dr. Michele Ponce assisted with retraction for adequate, identification of vital structures, dissection, over all conduct of the surgery and closure of the abdominal incision. ANESTHESIA: General Anesthesia. ESTIMATED BLOOD LOSS: Approximately 100 mL. COMPLICATIONS: none. REMARKS: 68 F with one month history of not feeling well secondary to prolonged course of possibly complicated diverticulitis. PROCEDURE NOTE: no abscess, or perforation. Hardened, thickened wall of the rectosigmoid extending to mid portion of sigmoid, fused hardened mesentery of the rectum, otherwise sigmoid colon proximal is mildly distended but healthy. Rectum transected at distal rectum. Oversewn with prolene. DRAINS: 19 Tre Drain placed to the pelvis, Sunita powder placed at the pelvis. DESCRIPTION OF PROCEDURE: She has been admitted to the hospital with more than a month history of presumably diverticulitis with an intramural abscess versus a contained per foration. There is concerns of possibility of a colonic mass. Follow-up imaging shows no improvement off the degree of inflammation and probably slight worsening with new appearance of pericolonic air despite her white count slightly going down and the CRP markedly improving. Likewise her symptoms is also mildly improved. She is not showing any signs of severe inflammatory response from this nor of generalized peritonitis. She has been on IV ciprofloxacin and metronidazole. The patient was brought to the operating room, placed in a supine position. General endotracheal anesthesia started without any complications. A Yun catheter was placed. Timeouts were performed using both preinduction and pre- incision safety checklists to verify correct patient, procedure site and additional critical information prior to beginning the procedure. SCD boots and teds stockings placed for DVT prophylaxis patient has been on lovenox subcutaneous daily for DVT prophylaxis. Her abdomen and pelvic area was prepped and draped in usual sterile fashion. I began with diagnostic laparoscopy to determine the extent of inflammation and plan out the incision. A Veress needle was inserted above her umbilicus in a controlled fashion. CO2 insufflation started to pressure 15 mmHg. Using the same incision a 5 mm port was placed under direct vision of the laparoscope. Insertion site was inspected for injury and none was found. She was placed in Trendelenburg position. Survey of the abdomen shows some mild distention of the small bowel likewise of the colon but otherwise appears healthy. She has a floppy sigmoid: There appears healthy there are some thickening of the distal sigmoid colon which appears hard and not movable. I placed a 5 mm right lower quadrant port and 5 mm suprapubic port under direct vision and tried to maneuver and manipulate at the cardia and portion of the rectum and sigmoid which falls underneath the enlarged uterus and somewhat fused to the uterus anteriorly and seems also to the pelvis posterolaterally on both sides. There is some serous fluid surrounding the area but no gross purulent collection that I could see. This all appears chronic to me and does not seem to follow on an acute diverticulitis appearance. At this point and quickly made a decision to convert to an open laparotomy. A lower midline incision was made starting just at the level of the umbilicus to the symphysis pubis. The incision was deepened through to the subcutaneous tissues and hemostasis was achieved with electrocautery. Linea alba was identified and incised and the peritoneal cavity entered. The patient was repositioned in a steeper Trendelenburg position, her left side tilted up towards to try to retract bowels away from the pelvis. The abdomen was explored. Small bowel was packed away towards the right upper quadrant area. I palpated around the uterus and rectum and sigmoid and got more serous fluid that was previous trapped by the inflammatory reaction between the two structures. The sigmoid colon as it enters the pelvis and the rectum felt hard and immovable.The uterus appears enlarged for her age, but soft, This covers most of the anterior pelvis. The extent of the hardening of the rectum (?mass) was initially hard to ascertain by palpation. The Millington self-retaining retractor was set up with a Louisa retractor inserted between the uterus and the rectum. As mentioned the portion of the rectum and sigmoid are quite hard and affixed to the pelvis. It is not clear on visual inspection and palpation within this is due to chronic inflammation or to an advanced malignancy. The mesorectum seems also calcified and hardened not allowing for the rectum to be retracted either side or anteriorly. I chose an area on the mid sigmoid colon which appears healthy and away from the portion of the sigmoid colon that feels hardened for my distal resection. A window was created between the colon and the mesentery and the sigmoid colon was divided at this point using a 75 mm JULIA stapler with a blue load. The mesentery was divided with Harmonic scalpel and the proximal descending colon retracted away from the surgical field into the left upper quadrant area to create space. I continued coming down opening up the peritoneum of the mesentery on both lateral and medial side. the lateral peritoneal reflection of the sigmoid colon was opened up to allow access towards the mesorectum laterally. There are a few hardened adhesions between the uterus, fallopian tube that I was able to take down from this area. Likewise to medial course the peritoneum was open up on the other side with the harmonic scalpel in the same manner while pulling on the sigmoid and rectum laterally. Still with us to maneuvers the mesorectum seems quite fixed towards the pelvis. Mainly with blunt finger dissection and harmonic scalpel we slowly made our way posteriorly. The exposure provided by the Millington retractor did not seem enough so we used a BookWalter retractor instead. After setting this up we continued circumferential dissection to wherever the exposure allows us to proceed further distal to the rectum. Eventually were able to circumferentially free the rectum that we could palpate the extent of the hardening within the rectum and this seems to be beyond the mid rectum towards the lower rectum area. At this point we seem to have more window for visualization under section on the patients left side. With a lot of retraction for exposure, I used the harmonic scalpel and sequential firing of a national on 16mm stapler with a green load to start getting around the lower rectum area to create more distal resection margin to word this seems to be healthy and softer rectal tissue. As expected this is slow and requires repeated traction, counter traction and palpation guide where we can fire stapler safely and to make sure we do not injure nearby structures especially that of the ureter. As we are able to 41 stapler this allows for slightly better exposure. Once we are midway th rough our resection I tried to finish this off with a contour stapler but due to the bulkiness of the rectum youre not able to get this around the remaining of the rectum distally. Instead we had a colostomy in the mid rectum with spillage of stool. This was controlled with couples sutures with 30 silks and be irrigated around the area. Within just continued our previous lateral to medial dissection and slow resection with the echelon stapler. Eventually we were able to come around and take the rectum up fully circumferentially. At this point, we changed gowns and gloves. I irrigated the the pelvis and inspected the pelvis for hemostasis. I reinforced the staple line on the rectal stump and ran a suture of 2-0 proline to reinforce the staple line. After re moving the sigmoid colon and rectum I could clearly follow the course of the left ureter and confirmed this was not injured. I removed the previous laparotomy pad packings and inspected the distal small bowel and the remnant of the sigmoid colon to the descending colon for injuries or possible lesions. I placed Sunita hemostatic powder to the pelvic wall which has a small amount of losing from the raw surfaces from out dissection. The mesentery on the remnant of the sigmoid colon will straighten out and the distal descending colon is freed up from its lateral attachments along the line of Toldt to prepare for our colostomy. I chose an area on the left lower quadrant for colostomy placement. A disk of skin and subcutaneous tissue was removed. Fascial opening was created and enlarged to accommodate two fingerbreadths and the end of the sigmoid colon was passed through the abdominal wall defect. A 19 Tre drain was passed through the right lower quadrant abdominal wall and positioned into the pelvis. The factual incision was close to with a running suture of number 1 looped PDS. He subcutaneous tissue was irrigated and check for hemostasis and then the skin was closed with skin amy. The incision was protected with a blue towel as we matured our colostomy. The end of the sigmoid colon was trimmed off and matured in a Naz fashion with 3-0 Vicryl. The drain was suture to the skin, the ostomy appliance was placed and strolled gauze dressings with ABD pads placed on top of the midline incision. Patient have tolerated the procedure well and remain hemodynamically stable and made about 400 animals of clear urine through the procedure. She was awakened, extubated and brought to the recovery room in stable condition. Counts of sponges and instruments were verified correct. NAVEEN ROSA MD August 26, 2018 00:40
[2018-08-26] MEDS: KETOROLAC 30 MG/ML VIAL (J1885) IV SCH ×4 (02:11→18:27)
[2018-08-26] MEDS: CIPROFLOXACIN 400 MG in APPROPRIATE DILUENT 1 EA IV SCH ×2 (02:12→15:56)
[2018-08-26] MEDS: metroNIDAZOLE 500 MG in APPROPRIATE DILUENT 1 EA IV SCH ×3 (04:22→20:16)
[2018-08-26] MEDS: SODIUM CHLORIDE 0.9% INJ 10 ML SYR IV SCH ×2 (06:00→18:00)
[2018-08-26 06:09] LABS: BASO % 0.1 % (0.0-1.0); HEMATOCRIT 30.2 % (36.0-47.0); HEMOGLOBIN 9.4 g/dl (12.0-15.5); LYMPH % 4.4 % (24.0-44.0); MEAN CORPUSCULAR HEMOGLOBIN 27.7 pg (27.0-33.0); MEAN CORPUSCULAR HGB CONC 31.1 g/dl (32.0-36.5); MEAN CORPUSCULAR VOLUME 89.1 fl (80.0-96.0); MONO # 0.6 10^3/uL (0.0-0.8); MONO % 2.6 % (0.0-5.0); NEUTROPHILS # 21.7 10^3/uL (1.8-7.7); NEUTROPHILS % 92.3 % (36.0-66.0); PLATELET COUNT, AUTOMATED 648 10^3/uL (150-450); RED BLOOD COUNT 3.39 10^6/uL (4.00-5.40); WHITE BLOOD COUNT 23.5 10^3/uL (4.0-10.0)
[2018-08-26 06:31] LABS: BLOOD UREA NITROGEN 14 MG/DL (7-18); CALCIUM LEVEL 7.7 MG/DL (8.8-10.2); CARBON DIOXIDE LEVEL 27 MEQ/L (21-32); CHLORIDE LEVEL 105 MEQ/L (98-107); GLOMERULAR FILTRATION RATE > 60.0 (>45); GLUCOSE, FASTING 249 MG/DL (70-100); POTASSIUM SERUM 4.3 MEQ/L (3.5-5.1); SODIUM LEVEL 136 MEQ/L (136-145)
[2018-08-26] MEDS: HumaLOG INSULIN (NovoLOG) PER UNIT SC SCH ×4 (06:41→18:00)
--- NOTE | 2018-08-26 08:49 | IPNPDOC ---
Subjective General Date/Time Seen The patient was seen on 08/26/18 at 08:34. Subject Chief Complaint/History The patient is a 68-year-old female admitted with a reason for visit of Acute Diverticulitis. Patient underwent resection of the rectum and sigmoid colon for what appears to be some chronic inflammatory changes and thickened wall of the rectum and sigmoid, unclear whether this is from a mass or chronic diverticulitis. She did well perioperatively. She is making good amount of clear, diluted urine. She reports this morning that she does not have any abdominal pain. Not much function from her colostomy yet. No events overnight. Current Medications Current Medications Current Medications Alvimopan (Entereg) 12 mg BID PO ; Start 08/26/18 at 09:00; Stop 09/02/18 at 08:59 Amino Ac/Electrol/ Dextrose/Calcium 2,000 ml @ 75 mls/hr ONCE@1800 IV Last administered on 08/24/18at 18:37; Start 08/24/18 at 18:00; Stop 08/25/18 at 17:59; Status DC Ciprofloxacin 400 mg/IV Miscellaneous Supplies 200 ml @ 200 mls/hr Q12H IV Last administered on 08/26/18at 02:12; Start 08/18/18 at 03:00 Diatrizoate Meglum/ Diatrizoate Sod (Gastrografin) 10 ml Q30M PO Last admin istered on 08/17/18at 20:37; Start 08/17/18 at 20:00; Stop 08/17/18 at 20:31; Status DC Diatrizoate Meglum/ Diatrizoate Sod (Gastrografin) 10 ml Q30M PO Last administered on 08/22/18at 07:06; Start 08/22/18 at 06:30; Stop 08/22/18 at 07:01; Status DC Enoxaparin Sodium (Lovenox) 40 mg DAILY SC Last administered on 08/25/18at 08:18; Start 08/18/18 at 09:00 Fat Emulsion Intravenous 500 ml @ 20 mls/hr ONCE@1800 IV Last administered on 08/24/18at 18:36; Start 08/24/18 at 18:00; Stop 08/25/18 at 17:59; Status DC Fat Emulsion Intravenous 500 ml @ 20 mls/hr ONCE@1800 IV Last administered on 08/25/18at 18:04; Start 08/25/18 at 18:00; Stop 08/26/18 at 17:59 Fentanyl Citrate (Sublimaze) 25 mcg Q5MP PRN IV MODERATE PAIN (PS 4-7); Start 08/26/18 at 00:00; Stop 08/26/18 at 06:01; Status DC Heparin Sodium (Heparin (Flush)) 200 units ASDIRECTED PRN IV SEE LABEL COMMENTS; Start 08/24/18 at 16:15 Heparin Sodium (Heparin (Flush)) 200 units PICC IV Last administered on 08/25/18at 18:04; Start 08/24/18 at 18:00 Home Med (Med Rec Complete!) ASDIRECTED XX ; Start 08/18/18 at 01:30; Stop 08/18/18 at 01:30; Status DC Insulin Human Lispro (HumaLOG INSULIN) See Protocol Table Q6H SC Last administered on 08/25/18at 12:47; Start 08/24/18 at 18:00; Stop 08/25/18 at 12:01; Status DC Insulin Human Lispro (HumaLOG INSULIN) See Protocol Table Q6H SC Last administered on 08/26/18at 06:41; Start 08/25/18 at 18:00; Stop 08/26/18 at 12:01 Ketorolac Tromethamine (ToRADol) 30 mg Q6H IV Last administered on 08/26/18at 0 6:41; Start 08/26/18 at 01:00; Stop 08/31/18 at 00:59 Ketorolac Tromethamine (ToRADol) 30 mg Q6HP PRN IV MILD/MODERATE PAIN (PS 1-7); Start 08/18/18 at 01:30; Stop 08/23/18 at 01:29; Status DC Lactated Ringer's 1,000 ml @ 75 mls/hr [id number] IV ; Start 08/26/18 at 00:30 Lactated Ringer's 1,000 ml @ 100 mls/hr Q10H IV ; Start 08/26/18 at 00:00; Stop 08/26/18 at 06:01; Status DC Lactated Ringer's 1,000 ml @ 125 mls/hr Q8H IV Last administered on 08/19/18at 21:08; Start 08/18/18 at 01:17; Stop 08/20/18 at 07:46; Status DC Lorazepam (Ativan) 1 mg STAT STAT PO ; Start 08/17/18 at 22:33; Stop 08/17/18 at 22:34; Status Cancel Magnesium Hydroxide (Milk Of Magnesia) 30 ml BID PO Last administered on 08/25/18at 08:17; Start 08/23/18 at 09:00 Metoclopramide HCl (REGLAN INJection) 10 mg Q6HP PRN IV NAUSEA OR VOMITING; Start 08/26/18 at 00:00; Stop 08/26/18 at 06:01; Status DC Metronidazole (Flagyl) 500 mg Q8H PO Last administered on 08/25/18at 06:17; Start 08/24/18 at 15:00; Stop 08/25/18 at 07:01; Status DC Metronidazole 500 mg/IV Miscellaneous Supplies 100 ml @ 100 mls/hr Q8H IV Last administered on 08/26/18at 04:22; Start 08/18/18 at 04:00 Morphine Sulfate (Morphine Sulfate Inj) 2 mg Q30M PRN IV MODERATE PAIN (PS 5-7) Last administered on 08/17/18at 19:59; Start 08/17/18 at 19:30; Stop 08/18/18 at 01:26; Status DC Morphine Sulfate (Morphine Sulfate Inj) 4 mg Q2HP PRN IV SEVERE PAIN (PS 8-10); Start 08/18/18 at 01:30 Multivitamins 10 ml/Chromium/ Copper/Manganese/ Seleni/Zn 1 ml/ Amino Ac/Electrol/ Dextrose/Calcium 2,011 ml @ 75 mls/hr ONCE@1800 IV Last administered on 08/25/18 18:04; Start 08/25/18 at 18:00; Stop 08/26/18 at 17:59 Neomycin Sulfate (Mycifradin) 1,000 mg Q8H PO Last administered on 08/25/18 06:17; Start 08/24/18 at 15:00; Stop 08/25/18 at 07:01; Status DC Ondansetron HCl (ZOFRAN INJection) 4 mg Q6HP PRN IV NAUSEA OR VOMITING; Start 08/18/18 at 01:30 Oxycodone/ Acetaminophen (Percocet 5mg/ 325mg Tablet) 1 tab ASDIRECTED PRN PO MILD/MODERATE PAIN (PS 1-7); Start 08/26/18 at 00:00; Stop 08/26/18 at 06:01; Status DC Oxycodone/ Acetaminophen (Percocet 5mg/ 325mg Tablet) 1 tab Q4HP PRN PO MODERATE PAIN (PS 5-7) Last administered on 08/18/18at 01:58; Start 08/18/18 at 01:30 Oxycodone/ Acetaminophen (Percocet 5mg/ 325mg Tablet) 2 tab Q6HP PRN PO SEVERE PAIN (PS 8-10); Start 08/18/18 at 01:30 Potassium Chloride/Dextrose/ Sod Cl 1,000 ml @ 75 mls/hr [id number] IV Last administered on 08/25/18 08:20; Start 08/20/18 at 07:45; Stop 08/25/18 at 13:05; Status DC Potassium Chloride (Micro-K Extencaps) 40 meq DAILY PO Last administered on 08/25/18at 08:18; Start 08/23/18 at 09:00; Stop 08/26/18 at 00:29; Status DC Senna/Docusate Sodium (Senokot S) 1 tab BID PO Last administered on 08/25/18 08:18; Start 08/18/18 at 09:00; Stop 08/26/18 at 00:29; Status DC Sodium Chloride 1,000 ml @ 100 mls/hr Q10H IV Last administered on 08/17/18at 19:58; Start 08/17/18 at 19:30; Stop 08/18/18 at 01:25; Status DC Sodium Chloride (Saline Lock Flush) 10 ML PICC IV Last administered on 08/25/18at 18:00; Start 08/24/18 at 18:00 Sodium Chloride (Saline Lock Flush) 10ML ASDIRECTED PRN IV SEE LABEL COMMENTS; Start 08/24/18 at 16:15 Allergies Coded Allergies: bee venom protein (honey bee) (Verified Allergy, Intermediate, SWELLING AND REDNESS, 08/17/18) spider venom (Unverified Allergy, Intermediate, BLACK AND BLUE, SWELLING, 08/18/18) TAPE (Verified Allergy, Unknown, SENSITIVIY, 08/17/18) Coconut (Verified Adverse Reaction, Intermediate, VIOLENTLY ILL, 08/17/18) Crab (Verified Adverse Reaction, Intermediate, VIOLENTLY ILL, 08/17/18) tree nut (Verified Adverse Reaction, Intermediate, MIGRAINES, 08/17/18) aspirin (Verified Adverse Reaction, Unknown, 08/17/18) Objective Physical Examination Examination GENERAL APPEARANCE: Patient laying flat in bed, appears comfortable. SKIN: Warm and dry. HEENT: Mild pale palpebral conjunctiva. Lips are dry. NECK: Supple, no thyromegaly. No obvious jugular venous distention. LUNGS: Clear to auscultation bilaterally. No wheezing appreciated. HEART: No chest wall abnormalities. Regular rate and rhythm with no murmurs appreciated. ABDOMEN: Abdomen is mildly distended, soft, hypoactive bowel sounds. Lower romi tical midline incision, a BD pad dressings are dry. She has a right lower quadrant Tre drain is putting out serosanguineous fluid. 100 ML's drained overnight. She has a left lower quadrant ostomy that looks healthy and viable with a small smear of solid stool but no gas yet in the bag. EXTREMITIES: No edema. Vital Signs Vital Signs Date Time Temp Pulse Resp B/P (MAP) Pulse Ox O2 Delivery O2 Flow Rate FiO2 08/26/18 06:15 97.4 79 18 119/69 (86) 98 2.0 I&Os I&O- Last 24 Hours up to 6 AM 08/26/18 06:00 Intake Total 3265 ml Output Total 3450 ml Balance -185 ml Urine output 950 ML's overnight postoperatively STEPHENIE drain 100 ML's postoperatively, pink serosanguineous Laboratory Data Labs 24H Laboratory Tests 2 08/25/18 12:22: Bedside Glucose (Misc Panel) 129H 08/25/18 18:11: Bedside Glucose (Misc Panel) 122H 08/26/18 01:30: Bedside Glucose (Misc Panel) 213H 08/26/18 05:14: Immature Granulocyte % (Auto) 0.6, White Blood Count 23.5H, Red Blood Count 3.39L, Hemoglobin 9.4L, Hematocrit 30.2L, Mean Corpuscular Volume 89.1, Mean Corpuscular Hemoglobin 27.7, Mean Corpuscular Hemoglobin Concent 31.1L, Red Cell Distribution Width 14.9H, Platelet Count 648H, Neutrophils (%) (Auto) 92.3H, Lymphocytes (%) (Auto) 4.4L, Monocytes (%) (Auto) 2.6, Eosinophils (%) (Auto) 0.0, Basophils (%) (Auto) 0.1, Neutrophils # (Auto) 21.7H, Lymphocytes # (Auto) 1.0L, Monocytes # (Auto) 0.6, Eosinophils # (Auto) 0.0, Basophils # (Auto) 0.0, Nucleated Red Blood Cells % (auto) 0.0, Anion Gap 4L, Glomerular Filtration Rate > 60.0, Blood Urea Nitrogen 14#, Creatinine 0.60, Sodium Level 136, Potassium Level 4.3, Chloride Level 105, Carbon Dioxide Level 27, Calcium Level 7.7L 08/26/18 06:04: Bedside Glucose (Misc Panel) 241H CBC/BMP Laboratory Tests 08/26/18 05:14 Red Blood Count 3.39 L, Mean Corpuscular Volume 89.1, Mean Corpuscular Hemoglobin 27.7, Mean Corpuscular Hemoglobin Concent 31.1 L, Red Cell Distribution Width 14.9 H, Neutrophils (%) (Auto) 92.3 H, Lymphocytes (%) (Auto) 4.4 L, Monocytes (%) (Auto) 2.6, Eosinophils (%) (Auto) 0.0, Basophils (%) (Auto) 0.1, Neutrophils # (Auto) 21.7 H, Lymphocytes # (Auto) 1.0 L, Monocytes # (Auto) 0.6, Eosinophils # (Auto) 0.0, Basophils # (Auto) 0.0, Calcium Level 7.7 L Microbiology Microbiology 08/17/18 Blood Culture - Final, Complete NO GROWTH AFTER 5 DAYS 08/17/18 Blood Culture - Final, Complete NO GROWTH AFTER 5 DAYS Impression Postop day 0 low anterior resection, end colostomy Malnutrition Anemia Overall she appears to be doing well. No perioperative problems noted. She is making adequate urine output and urine appears clear. I explained to her and her daughter with my intraoperative findings were. She has a very hard diffused: With the mesentery also hardened almost necrotic which I believe is what showed the bubbles of air posteriorly on the previous CAT scan so there is no clear obvious signs of perforation or any abscess. The wall itself appears erythematous and chronically inflamed probably certain areas mildly thinned out and ischemic. We had to take the rectum down low. We will have to await for pathology results to ascertain etiology. For today I told her to get out of bed and if stable enough ambulate to hallways. We will discontinue the Yun catheter. I want to continue the antibiotics at least for another week. We did have soilage of stool during the dissection within the pelvis. She is on Lovenox for DVT prophylaxis. I will allow her clear liquids today. Plan / VTE VTE Prophylaxis Ordered?: Yes Plan / Urinary Catheter Urinary Catheter: D/C DIMITRY Wallace MD August 26, 2018 08:49
[2018-08-26] MEDS: ALVIMOPAN 12 MG CAPSULE (ENTEREG) PO SCH ×2 (08:53→20:18)
[2018-08-26] MEDS: ENOXAPARIN 40 MG/0.4 ML SYRINGE (J1650) SC SCH (08:54)
[2018-08-26] MEDS ORDERED: AMINO AC/ELECTROLYTE/DEX/CALC 2,000 ML IV SCH (18:00)
[2018-08-26] MEDS ORDERED: FAT EMULSION IV 20% 500 ML IV SCH (18:00)
[2018-08-27] MEDS: KETOROLAC 30 MG/ML VIAL (J1885) IV SCH ×4 (00:23→18:22)
[2018-08-27] MEDS: HumaLOG INSULIN (NovoLOG) PER UNIT SC SCH ×3 (00:29→12:00)
[2018-08-27] MEDS: CIPROFLOXACIN 400 MG in APPROPRIATE DILUENT 1 EA IV SCH ×2 (02:13→14:47)
[2018-08-27] MEDS: metroNIDAZOLE 500 MG in APPROPRIATE DILUENT 1 EA IV SCH ×3 (03:41→20:45)
[2018-08-27 06:00] VITALS: BP 105/68
[2018-08-27] MEDS: SODIUM CHLORIDE 0.9% INJ 10 ML SYR IV SCH ×2 (06:00→17:21)
[2018-08-27 06:05] LABS: BASO % 0.2 % (0.0-1.0); EOS # 0.1 10^3/uL (0.0-0.50); EOS % 0.6 % (0.0-3.0); HEMATOCRIT 26.6 % (36.0-47.0); HEMOGLOBIN 8.2 g/dl (12.0-15.5); LYMPH # 2.6 10^3/uL (1.5-4.5); LYMPH % 14.3 % (24.0-44.0); MEAN CORPUSCULAR HEMOGLOBIN 27.8 pg (27.0-33.0); MEAN CORPUSCULAR HGB CONC 30.8 g/dl (32.0-36.5); MEAN CORPUSCULAR VOLUME 90.2 fl (80.0-96.0); MONO % 5.5 % (0.0-5.0); NEUTROPHILS # 14.3 10^3/uL (1.8-7.7); NEUTROPHILS % 78.6 % (36.0-66.0); PLATELET COUNT, AUTOMATED 607 10^3/uL (150-450); RED BLOOD COUNT 2.95 10^6/uL (4.00-5.40); WHITE BLOOD COUNT 18.2 10^3/uL (4.0-10.0)
[2018-08-27 06:17] LABS: BLOOD UREA NITROGEN 19 MG/DL (7-18); CALCIUM LEVEL 7.8 MG/DL (8.8-10.2); CARBON DIOXIDE LEVEL 27 MEQ/L (21-32); CHLORIDE LEVEL 107 MEQ/L (98-107); CREATININE FOR GFR 0.58 MG/DL (0.55-1.30); GLOMERULAR FILTRATION RATE > 60.0 (>45); GLUCOSE, FASTING 101 MG/DL (70-100); POTASSIUM SERUM 3.7 MEQ/L (3.5-5.1); SODIUM LEVEL 138 MEQ/L (136-145)
[2018-08-27] MEDS: ENOXAPARIN 40 MG/0.4 ML SYRINGE (J1650) SC SCH (09:12)
[2018-08-27] MEDS: ALVIMOPAN 12 MG CAPSULE (ENTEREG) PO SCH ×2 (09:12→20:45)
--- NOTE | 2018-08-27 11:34 | IPNPDOC ---
Text Note Date of Service The patient was seen on 08/27/18. NOTE No acute events overnight. Tolerating diet without any nausea or emesis. There is stool and air in the bag. She is able to get out of bed to the commode to go to the bathroom, but she has not walked beyond that yet. VSSAF NAD abd - soft, TTP appropriate, incisions c/d/i, drain with serosanguinous output, ostomy is pink and patent labs - below A) 68y/o female s/p sigmoidectomy with colostomy P) reg diet d/c TPN ambulate ABX ostomy teaching plan on d/c home once she is comfortable with the ostomy Shayne Roche DO A-FIB/CHADSVASC A-FIB History Current/History of A-Fib/PAF?: No VS,Fishbone, I+O VS, Fishbone, I+O Laboratory Tests 08/27/18 05:18 Red Blood Count 2.95 L, Mean Corpuscular Volume 90.2, Mean Corpuscular Hemoglobin 27.8, Mean Corpuscular Hemoglobin Concent 30.8 L, Red Cell Distribution Width 15.2 H, Neutrophils (%) (Auto) 78.6 H, Lymphocytes (%) (Auto) 14.3 L, Monocytes (%) (Auto) 5.5 H, Eosinophils (%) (Auto) 0.6, Basophils (%) (Auto) 0.2, Neutrophils # (Auto) 14.3 H, Lymphocytes # (Auto) 2.6, Monocytes # (Auto) 1.0 H, Eosinophils # (Auto) 0.1, Basophils # (Auto) 0.0, Calcium Level 7.8 L Vital Signs Date Time Temp Pulse Resp B/P (MAP) Pulse Ox O2 Delivery O2 Flow Rate FiO2 08/27/18 06:00 97.6 81 16 105/68 (80) 93 08/26/18 18:00 2.0 I&O- Last 24 Hours up to 6 AM 08/27/18 06:00 Intake Total 3320 ml Output Total 1010 ml Balance 2310 ml GLORIA ROCHE DO August 27, 2018 11:34
[2018-08-27 14:00] VITALS: BP 102/57
[2018-08-27 22:00] VITALS: BP 111/56
[2018-08-28] MEDS: KETOROLAC 30 MG/ML VIAL (J1885) IV SCH ×4 (00:11→18:05)
[2018-08-28] MEDS: CIPROFLOXACIN 400 MG in APPROPRIATE DILUENT 1 EA IV SCH ×2 (04:00→15:46)
[2018-08-28] MEDS: metroNIDAZOLE 500 MG in APPROPRIATE DILUENT 1 EA IV SCH ×3 (05:22→20:05)
[2018-08-28 05:43] LABS: BASO % 0.2 % (0.0-1.0); EOS # 0.2 10^3/uL (0.0-0.50); EOS % 1.3 % (0.0-3.0); HEMATOCRIT 25.3 % (36.0-47.0); HEMOGLOBIN 7.8 g/dl (12.0-15.5); LYMPH # 2.5 10^3/uL (1.5-4.5); MEAN CORPUSCULAR HEMOGLOBIN 27.5 pg (27.0-33.0); MEAN CORPUSCULAR HGB CONC 30.8 g/dl (32.0-36.5); MEAN CORPUSCULAR VOLUME 89.1 fl (80.0-96.0); MONO # 0.9 10^3/uL (0.0-0.8); MONO % 6.8 % (0.0-5.0); NEUTROPHILS % 72.6 % (36.0-66.0); PLATELET COUNT, AUTOMATED 592 10^3/uL (150-450); RED BLOOD COUNT 2.84 10^6/uL (4.00-5.40); WHITE BLOOD COUNT 13.8 10^3/uL (4.0-10.0)
[2018-08-28 06:00] VITALS: BP 112/66
[2018-08-28] MEDS: SODIUM CHLORIDE 0.9% INJ 10 ML SYR IV SCH ×2 (06:00→18:00)
[2018-08-28 06:06] LABS: BLOOD UREA NITROGEN 22 MG/DL (7-18); CALCIUM LEVEL 7.9 MG/DL (8.8-10.2); CARBON DIOXIDE LEVEL 26 MEQ/L (21-32); CHLORIDE LEVEL 107 MEQ/L (98-107); CREATININE FOR GFR 0.68 MG/DL (0.55-1.30); GLOMERULAR FILTRATION RATE > 60.0 (>45); GLUCOSE, FASTING 94 MG/DL (70-100); SODIUM LEVEL 137 MEQ/L (136-145)
[2018-08-28] MEDS: ENOXAPARIN 40 MG/0.4 ML SYRINGE (J1650) SC SCH (08:54)
[2018-08-28 10:15] VITALS: BP 104/59
[2018-08-28] MEDS: ALVIMOPAN 12 MG CAPSULE (ENTEREG) PO SCH ×2 (10:44→20:05)
[2018-08-28 14:00] VITALS: BP 108/59
[2018-08-28 22:00] VITALS: BP 117/59
[2018-08-29] MEDS: KETOROLAC 30 MG/ML VIAL (J1885) IV SCH ×4 (00:09→18:48)
[2018-08-29] MEDS: CIPROFLOXACIN 400 MG in APPROPRIATE DILUENT 1 EA IV SCH ×2 (02:35→15:32)
[2018-08-29] MEDS: metroNIDAZOLE 500 MG in APPROPRIATE DILUENT 1 EA IV SCH ×3 (03:58→20:17)
[2018-08-29 06:00] VITALS: BP 121/63
[2018-08-29] MEDS: SODIUM CHLORIDE 0.9% INJ 10 ML SYR IV SCH ×2 (06:00→17:41)
[2018-08-29 06:08] LABS: BASO # 0.1 10^3/uL (0.0-0.2); BASO % 0.4 % (0.0-1.0); EOS # 0.2 10^3/uL (0.0-0.50); EOS % 1.6 % (0.0-3.0); HEMATOCRIT 26.4 % (36.0-47.0); HEMOGLOBIN 8.1 g/dl (12.0-15.5); LYMPH # 2.2 10^3/uL (1.5-4.5); MEAN CORPUSCULAR HEMOGLOBIN 27.8 pg (27.0-33.0); MEAN CORPUSCULAR HGB CONC 30.7 g/dl (32.0-36.5); MEAN CORPUSCULAR VOLUME 90.7 fl (80.0-96.0); MONO # 0.9 10^3/uL (0.0-0.8); NEUTROPHILS # 8.7 10^3/uL (1.8-7.7); PLATELET COUNT, AUTOMATED 617 10^3/uL (150-450); RED BLOOD COUNT 2.91 10^6/uL (4.00-5.40); WHITE BLOOD COUNT 12.1 10^3/uL (4.0-10.0)
[2018-08-29 06:28] LABS: BLOOD UREA NITROGEN 16 MG/DL (7-18); CALCIUM LEVEL 7.8 MG/DL (8.8-10.2); CARBON DIOXIDE LEVEL 26 MEQ/L (21-32); CHLORIDE LEVEL 109 MEQ/L (98-107); CREATININE FOR GFR 0.75 MG/DL (0.55-1.30); GLOMERULAR FILTRATION RATE > 60.0 (>45); GLUCOSE, FASTING 98 MG/DL (70-100); POTASSIUM SERUM 4.1 MEQ/L (3.5-5.1); SODIUM LEVEL 140 MEQ/L (136-145)
[2018-08-29] MEDS: ALVIMOPAN 12 MG CAPSULE (ENTEREG) PO SCH ×2 (08:50→20:17)
[2018-08-29] MEDS: ENOXAPARIN 40 MG/0.4 ML SYRINGE (J1650) SC SCH (08:51)
[2018-08-29 14:00] VITALS: BP 122/72
[2018-08-29] MEDS: SODIUM CHLORIDE 0.9% INJ 10 ML SYR IV PRN (21:48)
[2018-08-29 22:00] VITALS: BP 159/77
[2018-08-30] MEDS: CIPROFLOXACIN 400 MG in APPROPRIATE DILUENT 1 EA IV SCH (01:49)
[2018-08-30] MEDS: KETOROLAC 30 MG/ML VIAL (J1885) IV SCH ×4 (01:50→18:25)
[2018-08-30] MEDS: metroNIDAZOLE 500 MG in APPROPRIATE DILUENT 1 EA IV SCH (03:13)
[2018-08-30 06:00] VITALS: BP 116/71
[2018-08-30] MEDS: SODIUM CHLORIDE 0.9% INJ 10 ML SYR IV SCH ×2 (06:29→18:26)
[2018-08-30 06:52] LABS: BASO % 0.2 % (0.0-1.0); EOS # 0.2 10^3/uL (0.0-0.50); EOS % 1.5 % (0.0-3.0); HEMATOCRIT 26.3 % (36.0-47.0); HEMOGLOBIN 8.1 g/dl (12.0-15.5); LYMPH # 2.3 10^3/uL (1.5-4.5); LYMPH % 18.6 % (24.0-44.0); MEAN CORPUSCULAR HEMOGLOBIN 27.4 pg (27.0-33.0); MEAN CORPUSCULAR HGB CONC 30.8 g/dl (32.0-36.5); MEAN CORPUSCULAR VOLUME 88.9 fl (80.0-96.0); MONO # 0.7 10^3/uL (0.0-0.8); MONO % 5.9 % (0.0-5.0); PLATELET COUNT, AUTOMATED 669 10^3/uL (150-450); RED BLOOD COUNT 2.96 10^6/uL (4.00-5.40); WHITE BLOOD COUNT 12.4 10^3/uL (4.0-10.0)
[2018-08-30 07:08] LABS: BLOOD UREA NITROGEN 13 MG/DL (7-18); CARBON DIOXIDE LEVEL 26 MEQ/L (21-32); CHLORIDE LEVEL 110 MEQ/L (98-107); CREATININE FOR GFR 0.76 MG/DL (0.55-1.30); GLOMERULAR FILTRATION RATE > 60.0 (>45); GLUCOSE, FASTING 91 MG/DL (70-100); SODIUM LEVEL 140 MEQ/L (136-145)
--- NOTE | 2018-08-30 08:45 | IPN ---
DATE: 08/29/2018 HISTORY: Patient is now postop day #4 from a sigmoid colectomy with colostomy. She has begun eating better and her colostomy is functioning well. She has one drain that remains in place in the right lower quadrant putting out some serous fluid, but she is also having some significant leakage of fluid around the drain. She is not having much pain currently. Vital signs show that the patient has been afebrile over the past 24 hours. Pulse is in the 80s and 90s, and her blood pressure is good. Intake and output shows that yesterday she had 1230 in with 1720 out. She had 20 mL recorded in her drain but again, she has had fluid draining around the drain itself and being collected on sponges. PHYSICAL EXAM: Patient is sitting up in the bed eating spaghetti with meat sauce tonight. She is alert and appears quite comfortable. Skin is warm and dry. Heart exam shows a regular rhythm, and the lungs are clear. Abdomen is soft with active bowel sounds. The ostomy is functioning well in the upper abdomen. Her drain site in the right lower quadrant is clean but there is a lot of serous fluid on the surrounding dressing. Laboratory studies show that today her white count is down to 12,000 from 14 yesterday and 23 on the 08/26/2018. Her hemoglobin is 8 with a hematocrit of 26 and her platelet count is 617,000. Chemistry profile shows a sodium of 140, potassium 4.1, chloride 109, CO2 of 26, BUN of 16, creatinine 0.75, and glucose is 98. IMPRESSION: Patient is doing well with her diet and her ostomy is functioning well. PLAN: Patient apparently has an appointment to meet the enterostomal therapist tomorrow for counseling regarding her ostomy care. Her drain is draining only a small amount of serous fluid but there is a lot of fluid draining around this, so I am going to go ahead and remove the drain today. I advised her that it may continue to drain through the drain site but that it will likely close up faster with the drain no longer in place. Her Cipro and Flagyl are being continued for now. She is using the Toradol fairly regularly for pain, though this will out date soon, but her renal function is remaining stable.
[2018-08-30] MEDS: ALVIMOPAN 12 MG CAPSULE (ENTEREG) PO SCH (09:09)
[2018-08-30] MEDS: ENOXAPARIN 40 MG/0.4 ML SYRINGE (J1650) SC SCH (09:09)
[2018-08-30] MEDS: metroNIDAZOLE (FLAGYL) 500 MG TAB PO SCH ×2 (13:37→21:39)
[2018-08-30] MEDS: SODIUM CHLORIDE 0.9% INJ 10 ML SYR IV PRN (13:44)
[2018-08-30 14:00] VITALS: BP 131/75
[2018-08-30] MEDS: CIPROFLOXACIN 500 MG TAB PO SCH (18:25)
[2018-08-30 22:00] VITALS: BP 137/75
[2018-08-31] MEDS: metroNIDAZOLE (FLAGYL) 500 MG TAB PO SCH ×3 (05:36→21:07)
[2018-08-31] MEDS: CIPROFLOXACIN 500 MG TAB PO SCH ×2 (05:36→17:32)
[2018-08-31] MEDS: SODIUM CHLORIDE 0.9% INJ 10 ML SYR IV SCH ×2 (05:37→17:33)
[2018-08-31 06:00] VITALS: BP 126/68
[2018-08-31 06:18] LABS: BASO % 0.4 % (0.0-1.0); EOS # 0.2 10^3/uL (0.0-0.50); EOS % 2.2 % (0.0-3.0); HEMATOCRIT 25.4 % (36.0-47.0); HEMOGLOBIN 7.9 g/dl (12.0-15.5); LYMPH # 2.3 10^3/uL (1.5-4.5); LYMPH % 22.7 % (24.0-44.0); MEAN CORPUSCULAR HEMOGLOBIN 28.2 pg (27.0-33.0); MEAN CORPUSCULAR HGB CONC 31.1 g/dl (32.0-36.5); MEAN CORPUSCULAR VOLUME 90.7 fl (80.0-96.0); MONO # 0.7 10^3/uL (0.0-0.8); MONO % 6.7 % (0.0-5.0); NEUTROPHILS # 6.9 10^3/uL (1.8-7.7); NEUTROPHILS % 67.1 % (36.0-66.0); PLATELET COUNT, AUTOMATED 599 10^3/uL (150-450); WHITE BLOOD COUNT 10.3 10^3/uL (4.0-10.0)
[2018-08-31 06:45] LABS: BLOOD UREA NITROGEN 13 MG/DL (7-18); CALCIUM LEVEL 7.8 MG/DL (8.8-10.2); CARBON DIOXIDE LEVEL 29 MEQ/L (21-32); CHLORIDE LEVEL 109 MEQ/L (98-107); CREATININE FOR GFR 0.74 MG/DL (0.55-1.30); GLOMERULAR FILTRATION RATE > 60.0 (>45); GLUCOSE, FASTING 88 MG/DL (70-100); POTASSIUM SERUM 3.8 MEQ/L (3.5-5.1); SODIUM LEVEL 140 MEQ/L (136-145)
[2018-08-31] MEDS: ENOXAPARIN 40 MG/0.4 ML SYRINGE (J1650) SC SCH (08:21)
--- NOTE | 2018-08-31 10:48 | IPNPDOC ---
Subjective General Date/Time Seen The patient was seen on 08/31/18 at 10:38. Subject Chief Complaint/History Patient continues to do well. She is tolerating regular diet and is having function on her colostomy. She reports minimal discomfort from her incision. She has been working with our ostomy nurse still feels anxious about taking care of the colostomy by herself. Her daughter changed the ostomy appliance yesterday with our ostomy nurse. Current Medications Current Medications Current Medications Alvimopan (Entereg) 12 mg BID PO Last administered on 08/30/18at 09:09; Start 08/26/18 at 09:00; Stop 08/30/18 at 11:18; Status DC Amino Ac/Electrol/ Dextrose/Calcium 2,000 ml @ 75 mls/hr ONCE@1800 IV Last administered on 08/24/18at 18:37; Start 08/24/18 at 18:00; Stop 08/25/18 at 17:59; Status DC Amino Ac/Electrol/ Dextrose/Calcium 2,000 ml @ 75 mls/hr ONCE@1800 IV Last administered on 08/26/18at 18:27; Start 08/26/18 at 18:00; Stop 08/27/18 at 17:59; Status DC Ciprofloxacin (Cipro) 500 mg BID@06,18 PO Last administered on 08/31/18at 05:36; Start 08/30/18 at 18:00 Ciprofloxacin 400 mg/IV Miscellaneous Supplies 200 ml @ 200 mls/hr Q12H IV Last administered on 08/30/18at 01:49; Start 08/18/18 at 03:00; Stop 08/30/18 at 11:18; Status DC Diatrizoate Meglum/ Diatrizoate Sod (Gastrografin) 10 ml Q30M PO Last administered on 08/17/18at 20:37; Start 08/17/18 at 20:00; Stop 08/17/18 at 20:31; Status DC Diatrizoate Meglum/ Diatrizoate Sod (Gastrografin) 10 ml Q30M PO Last administered on 08/22/18at 07:06; Start 08/22/18 at 06:30; Stop 08/22/18 at 07:01; Status DC Enoxaparin Sodium (Lovenox) 40 mg DAILY SC Last administered on 08/31/18at 08:21; Start 08/18/18 at 09:00 Fat Emulsion Intravenous 500 ml @ 20 mls/hr ONCE@1800 IV Last administered on 08/24/18at 18:36; Start 08/24/18 at 18:00; Stop 08/25/18 at 17:59; Status DC Fat Emulsion Intravenous 500 ml @ 20 mls/hr ONCE@1800 IV Last administered on 08/25/18at 18:04; Start 08/25/18 at 18:00; Stop 08/26/18 at 17:59; Status DC Fat Emulsion Intravenous 500 ml @ 20 mls/hr ONCE@1800 IV Last administered on 08/26/18at 18:27; Start 08/26/18 at 18:00; Stop 08/27/18 at 17:59; Status DC Fentanyl Citrate (Sublimaze) 25 mcg Q5MP PRN IV MODERATE PAIN (PS 4-7); Start 08/26/18 at 00:00; Stop 08/26/18 at 06:01; Status DC Heparin Sodium (Heparin (Flush)) 200 units ASDIRECTED PRN IV SEE LABEL COMMENTS Last administered on 08/30/18at 13:43; Start 08/24/18 at 16:15 Heparin Sodium (Heparin (Flush)) 200 units PICC IV Last administered on 08/31/18at 05:37; Start 08/24/18 at 18:00 Home Med (Med Rec Complete!) ASDIRECTED XX ; Start 08/18/18 at 01:30; Stop 08/18/18 at 01:30; Status DC Insulin Human Lispro (HumaLOG INSULIN) See Protocol Table Q6H SC Last administered on 08/25/18at 12:47; Start 08/24/18 at 18:00; Stop 08/25/18 at 12:01; Status DC Insulin Human Lispro (HumaLOG INSULIN) See Protocol Table Q6H SC Last administered on 08/26/18at 12:00; Start 08/25/18 at 18:00; Stop 08/26/18 at 12:01; Status DC Insulin Human Lispro (HumaLOG INSULIN) See Protocol Table Q6H SC Last administered on 08/27/18at 12:00; Start 08/26/18 at 18:00; Stop 08/27/18 at 12:01; Status DC Ketorolac Tromethamine (ToRADol) 30 mg Q6H IV Last administered on 08/30/18at 18:25; Start 08/26/18 at 01:00; Stop 08/31/18 at 00:59; Status DC Ketorolac Tromethamine (ToRADol) 30 mg Q6HP PRN IV MILD/MODERATE PAIN (PS 1-7); Start 08/18/18 at 01:30; Stop 08/23/18 at 01:29; Status DC Lactated Ringer's 1,000 ml @ 75 mls/hr [id number] IV ; Start 08/26/18 at 00:30; Stop 08/26/18 at 11:11; Status DC Lactated Ringer's 1,000 ml @ 100 mls/hr Q10H IV ; Start 08/26/18 at 00:00; Stop 08/26/18 at 06:01; Status DC Lactated Ringer's 1,000 ml @ 125 mls/hr Q8H IV Last administered on 08/19/18at 21:08; Start 08/18/18 at 01:17; Stop 08/20/18 at 07:46; Status DC Lorazepam (Ativan) 1 mg STAT STAT PO ; Start 08/17/18 at 22:33; Stop 08/17/18 at 22:34; Status Cancel Magnesium Hydroxide (Milk Of Magnesia) 30 ml BID PO Last administered on 08/25/18at 08:17; Start 08/23/18 at 09:00; Stop 08/26/18 at 08:50; Status DC Metoclopramide HCl (REGLAN INJection) 10 mg Q6HP PRN IV NAUSEA OR VOMITING; Start 08/26/18 at 00:00; Stop 08/26/18 at 06:01; Status DC Metronidazole (Flagyl) 500 mg Q8H PO Last administered on 08/25/18at 06:17; Start 08/24/18 at 15:00; Stop 08/25/18 at 07:01; Status DC Metronidazole (Flagyl) 500 mg Q8H PO Last administered on 08/31/18at 05:36; Start 08/30/18 at 14:00 Metronidazole 500 mg/IV Miscellaneous Supplies 100 ml @ 100 mls/hr Q8H IV Last administered on 08/30/18at 03:13; Start 08/18/18 at 04:00; Stop 08/30/18 at 11:18; Status DC Morphine Sulfate (Morphine Sulfate Inj) 2 mg Q30M PRN IV MODERATE PAIN (PS 5-7) Last administered on 08/17/18at 19:59; Start 08/17/18 at 19:30; Stop 08/18/18 at 01:26; Status DC Morphine Sulfate (Morphine Sulfate Inj) 4 mg Q2HP PRN IV SEVERE PAIN (PS 8-10); Start 08/18/18 at 01:30; Stop 08/27/18 at 11:28; Status DC Multivitamins 10 ml/Chromium/ Copper/Manganese/ Seleni/Zn 1 ml/ Amino Ac/Electrol/ Dextrose/Calcium 2,011 ml @ 75 mls/hr ONCE@1800 IV Last administered on 08/25/18at 18:04; Start 08/25/18 at 18:00; Stop 08/26/18 at 17:59; Status DC Neomycin Sulfate (Mycifradin) 1,000 mg Q8H PO Last administered on 08/25/18at 06:17; Start 08/24/18 at 15:00; Stop 08/25/18 at 07:01; Status DC Ondansetron HCl (ZOFRAN INJection) 4 mg Q6HP PRN IV NAUSEA OR VOMITING; Start 08/18/18 at 01:30 Oxycodone/ Acetaminophen (Percocet 5mg/ 325mg Tablet) 1 tab ASDIRECTED PRN PO MILD/MODERATE PAIN (PS 1-7); Start 08/26/18 at 00:00; Stop 08/26/18 at 06:01; Status DC Oxycodone/ Acetaminophen (Percocet 5mg/ 325mg Tablet) 1 tab Q4HP PRN PO MODERATE PAIN (PS 5-7) Last administered on 08/18/18at 01:58; Start 08/18/18 at 01:30 Oxycodone/ Acetaminophen (Percocet 5mg/ 325mg Tablet) 2 tab Q6HP PRN PO SEVERE PAIN (PS 8-10); Start 08/18/18 at 01:30; Stop 08/28/18 at 11:40; Status DC Potassium Chloride/Dextrose/ Sod Cl 1,000 ml @ 75 mls/hr [id number] IV Last administered on 08/25/18 08:20; Start 08/20/18 at 07:45; Stop 08/25/18 at 13:05; Status DC Potassium Chloride (Micro-K Extencaps) 40 meq DAILY PO Last administered on 08/25/18 08:18; Start 08/23/18 at 09:00; Stop 08/26/18 at 00:29; Status DC Senna/Docusate Sodium (Senokot S) 1 tab BID PO Last administered on 08/25/18 08:18; Start 08/18/18 at 09:00; Stop 08/26/18 at 00:29; Status DC Sodium Chloride 1,000 ml @ 100 mls/hr Q10H IV Last administered on 08/17/18 19:58; Start 08/17/18 at 19:30; Stop 08/18/18 at 01:25; Status DC Sodium Chloride (Saline Lock Flush) 10 ML PICC IV Last administered on 08/31/18 05:37; Start 08/24/18 at 18:00 Sodium Chloride (Saline Lock Flush) 10ML ASDIRECTED PRN IV SEE LABEL COMMENTS Last administered on 08/30/18 13:44; Start 08/24/18 at 16:15 Allergies Coded Allergies: bee venom protein (honey bee) (Verified Allergy, Intermediate, SWELLING AND REDNESS, 08/17/18) spider venom (Unverified Allergy, Intermediate, BLACK AND BLUE, SWELLING, 08/18/18) TAPE (Verified Allergy, Unknown, SENSITIVIY, 08/17/18) Coconut (Verified Adverse Reaction, Intermediate, VIOLENTLY ILL, 08/17/18) Crab (Verified Adverse Reaction, Intermediate, VIOLENTLY ILL, 08/17/18) tree nut (Verified Adverse Reaction, Intermediate, MIGRAINES, 08/17/18) aspirin (Verified Adverse Reaction, Unknown, 08/17/18) Objective Physical Examination Examination GENERAL APPEARANCE: Comfortable. SKIN: Warm and moist. HEENT: Normocephalic, atraumatic. P mild pale palpebral conjunctiva, anicteric sclerae. Lips and mucosa appear moist. NECK: Supple, no thyromegaly. No obvious jugular venous distention. LUNGS: Clear to auscultation bilaterally. No wheezing appreciated. HEART: No chest wall abnormalities. Regular rate and rhythm with no murmurs appreciated. ABDOMEN: Abdomen is slightly rounded, nondistended. Lower midline incision with amy intact, no drainage. Previous right lower quadrant drain site now dry. Left lower quadrant ostomy is healthy with air and liquid stool EXTREMITIES: No edema. Vital Signs Vital Signs Date Time Temp Pulse Resp B/P (MAP) Pulse Ox O2 Delivery O2 Flow Rate FiO2 08/31/18 06:00 97.5 81 18 126/68 (87) 94 08/26/18 18:00 2.0 I&Os I&O- Last 24 Hours up to 6 AM 08/31/18 06:00 Intake Total 1620 ml Output Total 1065 ml Balance 555 ml Laboratory Data Labs 24H Laboratory Tests 2 08/31/18 05:22: Immature Granulocyte % (Auto) 0.9, White Blood Count 10.3H, Red Blood Count 2.80L, Hemoglobin 7.9L, Hematocrit 25.4L, Mean Corpuscular Volume 90.7, Mean Corpuscular Hemoglobin 28.2, Mean Corpuscular Hemoglobin Concent 31.1L, Red Cell Distribution Width 15.8H, Platelet Count 599H, Neutrophils (%) (Auto) 67.1H, Lymphocytes (%) (Auto) 22.7L, Monocytes (%) (Auto) 6.7H, Eosinophils (%) (Auto) 2.2, Basophils (%) (Auto) 0.4, Neutrophils # (Auto) 6.9, Lymphocytes # (Auto) 2.3, Monocytes # (Auto) 0.7, Eosinophils # (Auto) 0.2, Basophils # (Auto) 0.0, Nucleated Red Blood Cells % (auto) 0.0, Anion Gap 2L, Glomerular Filtration Rate > 60.0, Blood Urea Nitrogen 13, Creatinine 0.74, Sodium Level 140, Potassium Level 3.8, Chloride Level 109H, Carbon Dioxide Level 29, Calcium Level 7.8L CBC/BMP Laboratory Tests 08/31/18 05:22 Red Blood Count 2.80 L, Mean Corpuscular Volume 90.7, Mean Corpuscular Hemoglobin 28.2, Mean Corpuscular Hemoglobin Concent 31.1 L, Red Cell Distribution Width 15.8 H, Neutrophils (%) (Auto) 67.1 H, Lymphocytes (%) (Auto) 22.7 L, Monocytes (%) (Auto) 6.7 H, Eosinophils (%) (Auto) 2.2, Basophils (%) (Auto) 0.4, Neutrophils # (Auto) 6.9, Lymphocytes # (Auto) 2.3, Monocytes # (Auto) 0.7, Eosinophils # (Auto) 0.2, Basophils # (Auto) 0.0, Calcium Level 7.8 L A-FIB/CHADSVASC A-FIB History Current/History of A-Fib/PAF?: No Current Oral Anticoagulant The: No Impression 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 I've converted her antibiotics to oral ciprofloxacin and metronidazole and her leukocytosis is coming down nicely. She has no evidence of any space organ infection or even soft tissue and skin surgical site infection. Her colostomy is functioning. I have stopped the Entereg which may be causing the diarrhea. She has poor to fair appetite though she is able to finish half of her tray according to her. She has no nausea or vomiting. At this point we are working with her to get her familiar with her colostomy. I discussed with her the initial pathology results that I had a discussion with him with our pathologist yesterday. This is some sort of malignant neoplasm though the exact etiology of the neoplasm or the source of that is not clear yet. This does not seem to be colon or rectal adenocarcinoma nor of GI tract malignancy. We will await final pathology. Patient has been made aware of this. She'll certainly need to be seen by oncologist as an outpatient after the pathology is made available. We will continue to work with her and getting familiar with a colostomy and anticipate she'll be able to go within the next couple of days with support from pelvic health nursing. Plan / VTE VTE Prophylaxis Ordered?: Yes Plan / Urinary Catheter Urinary Catheter: D/C DIMITRY Wallace MD August 31, 2018 10:48
[2018-08-31 14:00] VITALS: BP 128/74
[2018-08-31 22:00] VITALS: BP 138/77
[2018-09-01] MEDS: CIPROFLOXACIN 500 MG TAB PO SCH (05:43)
[2018-09-01] MEDS: metroNIDAZOLE (FLAGYL) 500 MG TAB PO SCH ×2 (05:43→14:00)
[2018-09-01] MEDS: SODIUM CHLORIDE 0.9% INJ 10 ML SYR IV SCH (05:44)
[2018-09-01 06:00] VITALS: BP 126/78
[2018-09-01 06:13] LABS: BASO % 0.4 % (0.0-1.0); EOS # 0.3 10^3/uL (0.0-0.50); EOS % 2.2 % (0.0-3.0); HEMATOCRIT 26.2 % (36.0-47.0); HEMOGLOBIN 8.1 g/dl (12.0-15.5); LYMPH # 2.4 10^3/uL (1.5-4.5); LYMPH % 21.9 % (24.0-44.0); MEAN CORPUSCULAR HEMOGLOBIN 27.6 pg (27.0-33.0); MEAN CORPUSCULAR HGB CONC 30.9 g/dl (32.0-36.5); MEAN CORPUSCULAR VOLUME 89.4 fl (80.0-96.0); MONO # 0.8 10^3/uL (0.0-0.8); NEUTROPHILS # 7.5 10^3/uL (1.8-7.7); NEUTROPHILS % 67.6 % (36.0-66.0); PLATELET COUNT, AUTOMATED 636 10^3/uL (150-450); RED BLOOD COUNT 2.93 10^6/uL (4.00-5.40); WHITE BLOOD COUNT 11.1 10^3/uL (4.0-10.0)
[2018-09-01 06:44] LABS: BLOOD UREA NITROGEN 11 MG/DL (7-18); CALCIUM LEVEL 8.3 MG/DL (8.8-10.2); CARBON DIOXIDE LEVEL 25 MEQ/L (21-32); CHLORIDE LEVEL 109 MEQ/L (98-107); CREATININE FOR GFR 0.65 MG/DL (0.55-1.30); GLOMERULAR FILTRATION RATE > 60.0 (>45); GLUCOSE, FASTING 96 MG/DL (70-100); POTASSIUM SERUM 3.6 MEQ/L (3.5-5.1); SODIUM LEVEL 140 MEQ/L (136-145)
[2018-09-01] MEDS: ENOXAPARIN 40 MG/0.4 ML SYRINGE (J1650) SC SCH (08:32)
[2018-09-01] MEDS ORDERED: PERCOCET PO (12:37)
[2018-09-01 14:00] VITALS: BP 132/71
== END 2018-09-01 14:59 | disposition home or self-care (01) | DRG 330 ==
LOC: M ED 18:29 → M ED INP 08-18 01:17 → M MSPAV 08-18 02:25
PROVIDERS: ADMIT Surgery; ATTEND Surgery
PROC: 02HV33Z Insertion of Infusion Device into Superior Vena Cava, Percutaneous Approach (ICD-10-PCS; 2018-08-24)
PROC: 0DBN0ZZ Excision of Sigmoid Colon, Open Approach (ICD-10-PCS; principal; 2018-08-26)
PROC: 0DBP0ZZ Excision of Rectum, Open Approach (ICD-10-PCS; 2018-08-26)
PROC: 0D1N0Z4 Bypass Sigmoid Colon to Cutaneous, Open Approach (ICD-10-PCS; 2018-08-26)
DX: C19 Malignant neoplasm of rectosigmoid junction (principal); E46 Unspecified protein-calorie malnutrition; K57.20 Diverticulitis of large intestine with perforation and abscess without bleeding; E87.6 Hypokalemia; D64.9 Anemia, unspecified; E55.9 Vitamin D deficiency, unspecified; E78.00 Pure hypercholesterolemia, unspecified; Z79.899 Other long term (current) drug therapy; Z88.6 Allergy status to analgesic agent; Z91.013 Allergy to seafood; Z91.018 Allergy to other foods; Z91.038 Other insect allergy status

== ENCOUNTER → 2018-09-15 | Outpatient (CLI) | payer MEDICARE, OTHER ==
[~2018-09-15] MED LIST changes: +ACET-897 PO; +ACET-908 PO; +ANTI2TAB16 PO; +ISOVUE-370 76% 100ML VIAL (Q9967) As Ordered ONE; +KEFL500C17 PO; +OMEG10005 PO; +PERCOCET PO; +SENN-50 PO; +SYST1SOL4 OU; +VITA-144 PO; +VITMTA PO
--- NOTE | 2018-09-15 11:27 | REP ---
CT Head without contrast History: Low colon carcinoma Contrast: Isovue 370 100 ml Areas of decreased attenuation are present in the periventricular and subcortical white matter. This represents small-vessel ischemic disease. There is no definite hemorrhage, infarct, mass or midline shift. The ventricular system and cortical sulci are dilated consistent with minimal volume loss. There is no extracerebral collection. The visualized sinuses are clear. Impression: 1. Small vessel ischemic disease. 2. Minimal volume loss. Subarachnoid hemorrhage, meningitis and isodense enhancing lesions cannot be excluded. Electronically Signed by Kristian Khan MD 09/15/2018 07:58 A
--- NOTE | 2018-09-15 15:35 | REP ---
Clinical: Stage III colon cancer. Technique: Axial contrast enhanced images from the thoracic inlet to the upper abdomen with coronal and sagittal re-formations using 100 ml Isovue 70 intravenous contrast material. Comparison: None. Findings: Lung augustin demonstrate minimal biapical scarring along with minimal posterior basilar dependent changes. No pulmonary parenchymal consolidation, significant nodule or mass lesion appreciated. No effusion. No pneumothorax. Tracheobronchial tree is patent. Small mediastinal and hilar lymph nodes are identified and nonspecific. Thoracic aorta and pulmonary vasculature are within normal limits. Heart and pericardium are grossly unremarkable. Limited upper abdomen demonstrates normal bilateral adrenal glands along with splenic parenchymal calcifications suggesting prior granulomas disease. 1.6 cm hepatic cyst in the lateral left lobe. Musculoskeletal structures without focal osseous abnormality identified. Impression: 1. Mild chronic-appearing changes. 2. No acute mediastinal or pleuroparenchymal process appreciated. Specifically, no evidence for metastatic disease. Electronically Signed by David Cortes MD 09/15/2018 03:25 P
== END ==
LOC: M RAD 07:04
PROVIDERS: ATTEND Internal Medicine Medical Oncology
DX: C18.9 Malignant neoplasm of colon, unspecified (principal)
CPT/HCPCS: 70460; 71260; Q9967

== ENCOUNTER → 2018-09-21 | Outpatient (CLI) | payer MEDICARE, OTHER ==
[~2018-09-21] MED LIST changes: -ISOVUE-370 76% 100ML VIAL (Q9967) As Ordered ONE
--- NOTE | 2018-09-21 16:21 | REP ---
PET/CT: History: Stage III sigmoid colon cancer. Comparison chest CT September 15, 2018. Comparison CT abdomen and pelvis August 22, 2018. The patient is status post rectosigmoid colon resection August 26, 2018. High-grade poorly differentiated adenocarcinoma. TECHNIQUE: 50 minutes following the intravenous injection of a 8.83 mCi dose of F-18 FDG, three-dimensional PET scintigraphy is acquired from the skull base to the proximal thighs. Triplanar noncontrast CT scanning is acquired through the same anatomic range for attenuation correction, and image registration with scan parameters optimized to minimize radiation exposure to the patient. PET scintigraphy and CT datasets were fused and displayed on a workstation with multiplanar and projection display capability. PET/CT Findings: Head and neck soft tissues are unremarkable. There is no abnormal hypermetabolic uptake in the thoracic cavity. No abnormal hypermetabolic uptake is seen in the liver. There are however hypermetabolic lymph nodes in the upper abdomen. There is a retrocaval lymph node with maximum standard uptake value 7.1. This lymph node enlarged between the August 22, 2018 and the September 15, 2018 prior studies. It measures 8 x 18 mm. There is a celiac axis 1.0 cm lymph node which is hypermetabolic as well. Its maximum SUV value is 5.78. No other retroperitoneal nodes are seen in the upper abdomen. There are multiple abnormalities that are hypermetabolic in the pelvis. There is a large presacral hypermetabolic area of density in the region of the oversewn rectum, which is of uncertain significance. Maximum standard uptake value here is 25.59. There is hypermetabolic uptake along what appears to be a largely open laparotomy incision. This may be inflammatory. There is a focus of hypermetabolic uptake along the course of the right sciatic nerve outside of the pelvis, with maximum standard uptake value 19.08. There is a poorly defined 1 cm soft tissue density in this location. Similarly, along the left pelvic sidewall, there is a focus of hypermetabolic uptake with maximum standard uptake value 12.59. Corresponding CT shows subtle soft tissue induration. There is a 1 cm hypermetabolic nodule in the peritoneal fat or peritoneal lining in the left lower quadrant adjacent to the colostomy site. Maximum standard uptake value is 7.97. There is a second similar 1 cm focus of hypermetabolic uptake more medially positioned adjacent to the midline abdominal wound uptake. Some of this uptake may well be due to postoperative inflammation or infection. Impression: Multiple foci of hypermetabolic uptake distributed in the pelvis and upper retroperitoneum and celiac axis lymph nodes as above. Metastatic disease must be suspected. Inflammatory and postoperative changes may be contributing as well. Electronically Signed by Wong Garduno MD 09/21/2018 04:35 P
== END ==
LOC: M PLARAD 13:16
PROVIDERS: ATTEND Internal Medicine Medical Oncology
DX: C18.7 Malignant neoplasm of sigmoid colon (principal)
CPT/HCPCS: 78815; A9552

== ENCOUNTER 2018-09-27 06:01 | Day surgery (SDC) | payer MEDICARE, OTHER ==
[~2018-09-27] VITALS: Ht 163.8 cm; Wt 56.7 kg
[~2018-09-27 06:01] MED LIST changes: -KEFL500C17 PO
[2018-09-27] MEDS: LR 1,000 ML IV ONE (06:29)
[2018-09-27] MEDS: BUPIVACAINE HCL 0.25% 30 ML VIAL As Ordered ONE ×2 (06:54→08:15)
[2018-09-27] MEDS ORDERED: PROPOFOL 200 MG/20 ML VIAL As Ordered ONE (07:17)
[2018-09-27] MEDS ORDERED: KETOROLAC 60 MG/2 ML VIAL (J1885) As Ordered ONE (07:17)
[2018-09-27] MEDS ORDERED: ONDANSETRON 4MG/2ML VIAL (J2405) As Ordered ONE (07:17)
[2018-09-27] MEDS ORDERED: LIDOCAINE 2% INJ 100 MG/5 ML SDV (FOR ANES.) As Ordered ONE (07:17)
[2018-09-27] MEDS ORDERED: fentaNYL 100 MCG/2 ML INJECTION (J3010) As Ordered ONE ×2 (07:18→08:22)
[2018-09-27] MEDS ORDERED: MIDAZOLAM INJ 2 MG/2 ML VIAL (J2250) As Ordered ONE (07:18)
[2018-09-27] MEDS: HEPARIN SOD (PORCINE) 5000 UNITS/ML VIAL As Ordered ONE (08:15)
[2018-09-27] MEDS: LIDOCAINE 1% SDV INJ 30 ML VIAL As Ordered ONE (08:15)
[2018-09-27] MEDS ORDERED: KEFL500C17 PO (09:13)
[2018-09-27 09:30] VITALS: BP 114/71
[2018-09-27] MEDS ORDERED: fentaNYL 100 MCG/2 ML INJECTION (J3010) IV PRN (09:30)
[2018-09-27] MEDS ORDERED: oxyCODONE 5MG TAB PO PRN (09:30)
--- NOTE | 2018-09-27 09:53 | REP ---
C-ARM VIEWS CHEST: Two C-arm views of the chest are performed. There is a right central venous catheter seen. The tip is in the superior vena cava. 1 minute 33 seconds fluoroscopy time utilized. Electronically Signed by Pablo Martin MD 09/28/2018 11:51 A
--- NOTE | 2018-09-27 10:06 | REP ---
Chest one-view HISTORY: Trdkve-N-Gnce insertion Comparison: 06/24/2011 The lungs are clear. The heart is normal in size. The pulmonary vasculature is normal in appearance. An Qcmzqk-Y-Zdvm catheter is present. Impression: No acute disease. Electronically Signed by Kristian Khan MD 09/27/2018 09:57 A
--- NOTE | 2018-09-27 11:26 | ROOPDOC ---
[facility] Report Of Operation Report of Operation DATE OF PROCEDURE: 09/27/18 PREPROCEDURE DIAGNOSES: Colon cancer, need for access for chemotherapy POSTPROCEDURE DIAGNOSES: Colon cancer, need for access for chemotherapy. PROCEDURE: Insertion of right subclavian Ndpmsa-l-Duos. SURGEON: Naveen Rosa MD ANESTHESIA: Local anesthesia with monitored anesthesia care. ESTIMATED BLOOD LOSS: Approximately 10 mL. COMPLICATIONS: None a postoperative chest x-ray was taken showing adequate positioning of the hub and tip and passed off the catheter as well as no pneumothorax. REMARKS: . PROCEDURE NOTE: . DESCRIPTION OF PROCEDURE: . NAVEEN ROSA MD Sep 27, 2018 11:26
[2018-09-28] MEDS ORDERED: PROPOFOL 200 MG/20 ML VIAL As Ordered ONE (10:36)
== END 2018-09-27 10:18 | disposition home or self-care (01) ==
LOC: M SDC 06:01
PROVIDERS: ATTEND Surgery
DX: C18.9 Malignant neoplasm of colon, unspecified (principal); G43.909 Migraine, unspecified, not intractable, without status migrainosus; Z88.6 Allergy status to analgesic agent; Z91.013 Allergy to seafood; Z91.018 Allergy to other foods; Z91.030 Bee allergy status; Z91.048 Other nonmedicinal substance allergy status; Z93.3 Colostomy status; Z78.0 Asymptomatic menopausal state; Z98.51 Tubal ligation status; Z87.81 Personal history of (healed) traumatic fracture; Z96.1 Presence of intraocular lens; Z98.41 Cataract extraction status, right eye; Z98.42 Cataract extraction status, left eye
CPT/HCPCS: 36571; 71045; 76000; 87070; 87075; 87077; 87186; C1788; J0690; J2250; J2405; J3010

== ENCOUNTER 2018-09-29 15:59 | Emergency (ER) | payer MEDICARE, OTHER ==
[~2018-09-29] VITALS: Ht 162.6 cm; Wt 56.8 kg
[~2018-09-29 15:59] MED LIST changes: +KEFL500C17 PO
[2018-09-29] MEDS ORDERED: NS 1,000 ML IV SCH (16:19)
[2018-09-29 17:11] LABS: CK-MB VALUE MASS < 1.0 NG/ML (<3.6); CPK CREATINE PHOSPHOKINASE 30 U/L (26-192); MB/CK RELATIVE INDEX 3.33 (< OR =4); TROPONIN I < 0.02 NG/ML (< 0.10)
[2018-09-29] MEDS ORDERED: ISOVUE-370 76% 100ML VIAL (Q9967) As Ordered ONE (17:21)
[2018-09-29 17:29] LABS: INR 1.32; PROTHROMBIN TIME 16.6 SECONDS (12.1-14.4)
[2018-09-29] MEDS ORDERED: PIPERACILLIN/TAZOBACTAM SOD 4.5 GM in D5W MINI-BAG PLUS 50 ML IV ONE (17:30)
[2018-09-29] MEDS ORDERED: ONDANSETRON 4MG/2ML VIAL (J2405) IV ONE (17:45)
[2018-09-29] MEDS: MORPHINE 2 MG/ML 1ML VIAL (J2270) IV PRN ×2 (17:45→21:20)
--- NOTE | 2018-09-29 19:17 | REP ---
CT ABDOMEN AND PELVIS WITH IV CONTRAST: TECHNIQUE: Axial contrast enhanced images from the lung bases to the pubic symphysis using 100 mL Isovue 370 intravenous contrast material with multiplanar reformations. The patient has had prior resection of the rectosigmoid colon with oversewn rectum and colostomy in the left lower quadrant. Correlation is made with prior PET CT of 09/21/2018. The visualized lung bases are clear. There is are a few small cysts in the liver. There are several calcified granulomas in the spleen. The adrenals and pancreas demonstrate no significant abnormality. A couple of small cysts are seen in the posterior aspect of the mid right kidney. There are multiple intrarenal calculi bilaterally without hydronephrosis. There is mild atherosclerotic calcification of the abdominal aorta without aneurysm. I see no free air or free fluid. Several small lymph nodes are seen. There is a right aortocaval lymph node in the upper abdomen measuring 11 mm in short axis which demonstrated hypermetabolic uptake. There appears to be a lymph node adjacent to thee exiting colostomy just deep to the abdominal wall measuring 8 mm in short axis. Another lymph node measuring 8 mm is seen just below and medial to that just beneath the anterior abdominal wall. There is an 8 mm lymph node behind the right common iliac vessels at that same level. There is a left common iliac lymph node at that same level about 10 mm in short axis. There is a right inferior mesenteric lymph node 1 cm in short axis on image 105. There is a 1.4 cm left external iliac lymph node and a 1.0 cm right external iliac lymph node. There is a 1.2 cm lymph node to the left of the superior aspect of the oversewn rectum. There is a soft tissue nodule 1.7 x 1.0 cm along the course of the right sciatic nerve just distal to the great sciatic foramen. There is a midline incision in the anterior pelvic wall containing a small amount of air. There is diffuse thickening of the left colon with mild surrounding pericolonic inflammatory change diffusely. In the pelvis the urinary bladder is mildly distended. The uterus is grossly unremarkable. Just above the oversewn rectum there appears to be a complex area of fluid which I suspect represents a loculated septated abscess. This measures approximately 6.7 x 6.1 cm. IMPRESSION: Status-post rectosigmoid colon resection with left lower quadrant colostomy and oversewn rectum. Just above the oversewn rectum there appears to be a loculated septated fluid collection and I suspect this represents a presacral abscess. It measures approximately 6.7 x 6.1 cm. There is diffuse thickening and inflammation of the left colon. Multiple small lymph nodes are seen throughout the abdomen and pelvis as discussed in detail above. Electronically Signed by Pablo Martin MD 10/04/2018 01:36 P
--- NOTE | 2018-09-29 20:15 | ECGEPIP ---
[facility] - ED Test Date: 2018-09-29 Pat Name: VANDANA KHAN Department: Room: - Gender: Female Diagnostic Technician: MELISSA : 1950 Requested By: Stefania Villegas Order Number: [id number] Reading MD: Stefania Villegas Measurements Intervals Chrisney Rate: 101 P: SD: 98 QRS: 25 QRSD: 82 T: 4 QT: 337 QTc: 437 Interpretive Statements SINUS TACHYCARDIA WITH SHORT SD INTERVAL ABNORMAL RHYTHM ECG NSTTW ABNORMALITY Electronically Signed on 09-29-2018 20:14:53 EDT by Stefania Villegas
[2018-09-29 21:19] VITALS: BP 98/54
[2018-10-11] MEDS ORDERED: VANC125C3 PO (13:35)
[2018-10-13] MEDS ORDERED: ONDA8TAB10 PO (08:49)
[2018-10-13] MEDS ORDERED: PROC10TA4 PO (08:49)
[2018-11-02] MEDS ORDERED: ONDA8TAB10 PO (00:30)
[2018-11-08] MEDS ORDERED: ENOX80IN3 SC (09:15)
[2018-12-01] MEDS ORDERED: LOVE0.6I2 SC (09:18)
[2018-12-15] MEDS ORDERED: MEGE40SU5 PO (08:20)
== END 2018-09-29 21:26 | disposition short-term general hospital (02) ==
LOC: M ED 15:59
DX: K65.1 Peritoneal abscess (principal); E78.9 Disorder of lipoprotein metabolism, unspecified; Z79.899 Other long term (current) drug therapy; Z91.018 Allergy to other foods; Z91.030 Bee allergy status; Z91.048 Other nonmedicinal substance allergy status; Z88.8 Allergy status to other drugs, medicaments and biological substances
CPT/HCPCS: 36415; 36591; 74177; 80053; 82378; 82550; 82553; 83605; 84484; 85027; 85610; 86850; 86900; 86901; 87040; 93005; 96374; 96375; 96376; 99285; G0463; J2270; J2405; J2543; Q9967

== ENCOUNTER → 2018-10-11 | Outpatient (CLI) | payer MEDICARE, OTHER ==
[~2018-10-11] MED LIST changes: +ONDA8TAB7 PO; +PROC10TA4 PO; +VANC125C3 PO
--- NOTE | 2018-10-11 16:04 | REP ---
Left lower extremity deep vein duplex ultrasound: The deep veins demonstrate normal compression, normal Doppler color flow and normal Doppler waveforms with respiration and augmentation from the popliteal vein to the common femoral vein. Impression: There is no left lower extremity deep vein thrombus. Electronically Signed by Pablo Cruz MD 10/11/2018 03:56 P
== END ==
LOC: M RAD 15:06
PROVIDERS: ATTEND Internal Medicine Medical Oncology
DX: R22.42 Localized swelling, mass and lump, left lower limb (principal)

== ENCOUNTER 2018-11-01 21:25 | Inpatient (IN) | payer MEDICARE, OTHER ==
[~2018-11-01] VITALS: Ht 162.6 cm; Wt 52.5 kg
[2018-11-01] MEDS ORDERED: MELA5TAB21 PO (21:49)
[2018-11-01] MEDS ORDERED: [UNRECOGNIZED DRUG - OTHER] PO (21:49)
--- NOTE | 2018-11-01 23:17 | REPVR ---
EXAM: US Duplex Left Lower Extremity Veins, Limited EXAM DATE/TIME: 11/01/2018 10:48 PM CLINICAL HISTORY: 68 years old, female; Edema, localized; Lower extremity, left; Additional info: Left lower leg swelling TECHNIQUE: Imaging protocol: Real-time Duplex ultrasound of the Left Lower Extremity with 2-D mcgee scale, color Doppler flow and spectral waveform analysis. Limited exam focused on the left lower extremity veins. COMPARISON: US Duplex, Ext,LOWER veins,unilat 10/11/2018 3:29 PM FINDINGS: Left deep veins: Acute thrombosis extending from the common femoral vein to the popliteal vein. Left superficial veins: Unremarkable. Saphenofemoral junction is patent without thrombus. Soft tissues: Unremarkable. IMPRESSION: Acute DVT extending from the common femoral vein to the popliteal vein. Electronically signed by: Hebert Guy On 11/01/2018 23:17:10 PM
[2018-11-01] MEDS ORDERED: ISOVUE-370 76% 100ML VIAL (Q9967) As Ordered ONE (23:30)
[2018-11-01 23:33] LABS: BASO % 0.4 % (0.0-1.0); EOS # 0.1 10^3/uL (0.0-0.50); EOS % 0.9 % (0.0-3.0); LYMPH # 2.2 10^3/uL (1.5-4.5); LYMPH % 25.5 % (24.0-44.0); MEAN CORPUSCULAR HEMOGLOBIN 29.2 pg (27.0-33.0); MEAN CORPUSCULAR HGB CONC 31.3 g/dl (32.0-36.5); MEAN CORPUSCULAR VOLUME 93.6 fl (80.0-96.0); MONO # 0.1 10^3/uL (0.0-0.8); MONO % 1.1 % (0.0-5.0); NEUTROPHILS % 70.3 % (36.0-66.0); PLATELET COUNT, AUTOMATED 200 10^3/uL (150-450); RED BLOOD COUNT 3.42 10^6/uL (4.00-5.40); WHITE BLOOD COUNT 8.5 10^3/uL (4.0-10.0)
[2018-11-01 23:55] LABS: ALBUMIN 2.2 GM/DL (3.2-5.2); BILIRUBIN,DIRECT 0.1 MG/DL (0.0-0.2); BILIRUBIN,TOTAL 0.3 MG/DL (0.2-1.0); TOTAL PROTEIN 5.9 GM/DL (6.4-8.2)
[2018-11-02] VITALS (7 sets, daily range): BP systolic 94–149; BP diastolic 53–67
--- NOTE | 2018-11-02 00:12 | REPVR ---
EXAM: CT Angiography Chest With Contrast EXAM DATE/TIME: 11/01/2018 11:12 PM CLINICAL HISTORY: 68 years old, female; Other: Swollen left leg/ankle; Additional info: RO pulmonary embolism TECHNIQUE: Imaging protocol: Axial computed tomographic angiography images of the chest with intravenous contrast using CT angiography protocol. Coronal and sagittal reformatted images were created and reviewed. 3D rendering: MIP reconstructed images were created and reviewed. Radiation optimization: All CT scans at this facility use at least one of these dose optimization techniques: automated exposure control; mA and/or kV adjustment per patient size (includes targeted exams where dose is matched to clinical indication); or iterative reconstruction. Contrast material: ISO; Contrast volume: 75 ml; Contrast route: AC; COMPARISON: CT Chest with contrast 09/15/2018 7:38 AM FINDINGS: Pulmonary arteries: There are multiple bilateral pulmonary emboli located in the right upper lobe segmental artery, lateral segmental branch artery to the middle lobe, interlobar and segmental arteries on the right and distal interlobar/posterior segmental arteries in the left lower lobe. Aorta: The aorta demonstrates mild atherosclerotic calcification. Lungs: Unremarkable. No consolidation. No masses. Pleural space: Bilateral apical pleural-parenchymal scarring. Heart: There is no right heart strain demonstrated. Lymph nodes: Unremarkable. No enlarged lymph nodes. Bones/joints: The spine demonstrates mild degenerative changes. Soft tissues: Unremarkable. IMPRESSION: 1. There are multiple bilateral pulmonary emboli located in the right upper lobe segmental artery, lateral segmental branch artery to the middle lobe, interlobar and segmental arteries on the right and distal interlobar/posterior segmental arteries in the left lower lobe. 2. There is no right heart strain demonstrated. THIS REPORT CONTAINS FINDINGS THAT MAY BE CRITICAL TO PATIENT CARE. The findings were verbally communicated via telephone conference with CEDRICK BARTH at 12:11 AM EDT on 11/02/2018. The findings were acknowledged and understood. Electronically signed by: Hebert Guy On 11/02/2018 00:12:15 AM
[2018-11-02] MEDS ORDERED: ONDA8TAB7 PO (00:30)
[2018-11-02] MEDS ORDERED: MELA1TAB9 PO (00:30)
[2018-11-02] MEDS ORDERED: PROC10TA4 PO (00:30)
[2018-11-02] MEDS ORDERED: ENOXAPARIN 100MG/1ML SYRINGE (J1650) SC ONE (00:45)
[2018-11-02] MEDS ORDERED: PROCHLORPERAZINE 5 MG TAB (S0183) PO PRN (04:30)
[2018-11-02] MEDS ORDERED: ONDANSETRON 4 MG TAB (S0181) PO PRN (04:30)
[2018-11-02] MEDS ORDERED: ACETAMINOPHEN 500 MG TAB PO PRN (04:30)
[2018-11-02] MEDS ORDERED: ENTER DRUG NAME HERE (PATIENT'S OWN MED) PO PRN (04:30)
--- NOTE | 2018-11-02 04:50 | HPEPDOC ---
General Date of Admission 11/02/18 Date of Service: Nov 02, 2018 Other Providers PCP: Wong Stern, Oncology: Dr Rosenberg Attending Physician: NILTON DE LA FUENTE DO Chief Complaint The patient is a 68-year-old female admitted with a reason for visit of Swollen Leg/Ankle. Source: Patient, Family Exam Limitations: No limitations Timing/Duration: Day(s) (1) Severity: Severe Associated Symptoms: Malaise, Nausea, Other (LEG PAIN) History of Present Illness 68 YO female with history of active chemotherapy treatment for colorectal cancer (2 or 12 sessions with FOLFOX) presents with sudden left leg swelling on 10/31/18 that progressively worsened with pain. She states similar episode occured on 10/11 but resolved 1-2 days later and there was no signs of DVT at that time. While in ED, US was performed and showed a left leg DVT. Subsequent CTA chest also showed PE. Patient states no CP, no SOB, no MIRAMONTES; currently no N, no V, occasional abdomen pain (chronic) but no Diarrhea, no constipation, no hematuria, no urgency, no melena or hematochezia. Home Medications Scheduled Cholecalciferol (Vitamin D3) (Vitamin D3) 1,000 Unit Tablet, 1,000 UNIT PO BID, (Reported) Multivitamins (Thera M Plus Tablet) 1 Each Tablet, 1 TAB PO BID, (Reported) Scheduled PRN Acetaminophen (Tylenol Extra Strength) 500 Mg Tablet, 500 MG PO Q4H PRN for PAIN, (Reported) Melatonin (Melatonin) 5 Mg Tablet, 5 MG PO QHS PRN for SLEEP, (Reported) Ondansetron HCl (Ondansetron HCl) 8 Mg Tablet, 8 MG PO Q6H PRN for NAUSEA OR VOMITING, (Reported) Prochlorperazine Maleate (Prochlorperazine Maleate) 10 Mg Tablet, 10 MG PO Q8H PRN for NAUSEA OR VOMITING, (Reported) Propylene Glycol/Peg 400/Pf (Systane 0.3-0.4% Eye Drop) 1 Each Droperette, 1 DROP OU QID PRN for DRY EYES, (Reported) Allergies Coded Allergies: bee venom protein (honey bee) (Verified Allergy, Intermediate, SWELLING AND REDNESS, 08/17/18) spider venom (Unverified Allergy, Intermediate, BLACK AND BLUE, SWELLING, 08/18/18) TAPE (Verified Allergy, Unknown, SENSITIVIY, 08/17/18) Coconut (Verified Adverse Reaction, Intermediate, VIOLENTLY ILL, 08/17/18) Crab (Verified Adverse Reaction, Intermediate, VIOLENTLY ILL, 08/17/18) aspartame (Verified Adverse Reaction, Intermediate, HEADACHE, 11/02/18) tree nut (Verified Adverse Reaction, Intermediate, MIGRAINES, 08/17/18) aspirin (Verified Adverse Reaction, Unknown, 08/17/18) Past Medical History Medical History Post menopausal Colorectal cancer denies HTN,DM,CAD or thyroid disease Past surgical history colostomy (08/24/2018) right chest wall port (for chemo placed 09/2018) bilateral cataract removed colorectal resection (08/24/2018) bunionectomy right wrist plate and pins post fracture c section x 3 Family history: no history of DVT/PE or clotting disorder Social History: no tobacco, no EtOH A-FIB/CHADSVASC A-FIB History Current/History of A-Fib/PAF?: No Current PO Anticoag Therapy: No Review of Systems Other systems 10 systems reviewed and negative except as per HPi Physical Examination General Exam: Positive: Alert, Cooperative, No Acute Distress Eye Exam: Positive: PERRLA, Conjunctiva & lids normal, EOMI ENT Exam: Positive: Atraumatic, Mucous membr. moist/pink, Pharynx Normal Neck Exam: Positive: Supple, +2 carotid pulse wo bruit Chest Exam: Positive: Clear to auscultation, Normal air movement; Negative: Rales, Rhonchi, Wheezing, Diminished Heart Exam: Positive: Rate Normal, Normal S1, Normal S2 Telemetry: Positive: No significant arrhythmia, Sinus Abdomen Exam: Positive: Normal bowel sounds, Soft (mild tenderness (Chronic per pateint )above left colostomy site, colostomy intact and functioning) Extremity Exam: Positive: Edema (left leg 2x large than right leg; DP pulses intact), Normal pulses, Tenderness (left leg) Skin Exam: Positive: Nl turgor and temperature; Negative: Rash Neuro Exam: Positive: Normal Speech, Strength at 5/5 X4 ext, Normal Tone, Sensation Intact Psych Exam: Positive: Mental status NL, Mood NL, Oriented x 3 Other physical findings CTA CHEST: IMPRESSION: 1. There are multiple bilateral pulmonary emboli located in the right upper lobe segmental artery, lateral segmental branch artery to the middle lobe, interlobar and segmental arteries on the right and distal interlobar/posterior segmental arteries in the left lower lobe. 2. There is no right heart strain demonstrated. US of legs: IMPRESSION: Acute DVT extending from the common femoral vein to the popliteal vein. Vital Signs Vital Signs Date Time Temp Pulse Resp B/P (MAP) Pulse Ox O2 Delivery O2 Flow Rate FiO2 11/02/18 00:10 98.5 77 18 129/65 (86) 100 Room Air Laboratory Data Labs 24H Laboratory Tests 2 11/01/18 23:27: Immature Granulocyte % (Auto) 1.8, White Blood Count 8.5, Red Blood Count 3.42L, Hemoglobin 10.0L, Hematocrit 32.0L, Mean Corpuscular Volume 93.6, Mean Corpuscular Hemoglobin 29.2, Mean Corpuscular Hemoglobin Concent 31.3L, Red Cell Distribution Width 15.8H, Platelet Count 200, Neutrophils (%) (Auto) 70.3H, Lymphocytes (%) (Auto) 25.5, Monocytes (%) (Auto) 1.1, Eosinophils (%) (Auto) 0.9, Basophils (%) (Auto) 0.4, Neutrophils # (Auto) 6.0, Lymphocytes # (Auto) 2.2, Monocytes # (Auto) 0.1, Eosinophils # (Auto) 0.1, Basophils # (Auto) 0.0, Nucleated Red Blood Cells % (auto) 0.0, Aspartate Amino Transf (AST/SGOT) 41H, A lanine Aminotransferase (ALT/SGPT) 31, Alkaline Phosphatase 126H, Total Bilirubin 0.3, Direct Bilirubin 0.1, Total Protein 5.9L, Albumin 2.2L, Albumin/Globulin Ratio 0.59L 11/01/18 23:29: POC Glucose (Misc Panel) 117H, POC Sodium (Misc Panel) 137, POC Potassium (Misc Panel) 3.7, POC Chloride (Misc Panel) 103, POC Total CO2 (Misc Panel) 25.0, POC Blood Urea Nitrogen (Misc Panel 13, POC Ionized Calcium (Misc Panel) 4.4L, POC Creatinine (Misc Panel) 0.6, POC Hematocrit (Misc Panel) 30.0L Item Value Date Time Total Bilirubin 0.3 MG/DL 11/01/182326 Direct Bilirubin 0.1 MG/DL 11/01/182326 Aspartate Amino Transf (AST/SGOT) 41 U/L H 11/01/182326 Alanine Aminotransferase (ALT/SGPT) 31 U/L 11/01/182326 Alkaline Phosphatase 126 U/L H 11/01/182326 Total Protein 5.9 GM/DL L 11/01/182326 Albumin 2.2 GM/DL L 11/01/182326 Albumin/Globulin Ratio 0.59 L 11/01/182326 POC Glucose (Misc Panel) 117 MG/DL H 11/01/182328 POC Sodium (Misc Panel) 137 MEQ/L 11/01/182328 POC Potassium (Misc Panel) 3.7 MEQ/L 11/01/182328 POC Chloride (Misc Panel) 103 MEQ/L 11/01/182328 POC Total CO2 (Misc Panel) 25.0 MM/L 11/01/182328 POC Blood Urea Nitrogen (Misc Panel 13 MG/DL 11/01/182328 POC Ionized Calcium (Misc Panel) 4.4 MG/DL L 11/01/182328 POC Creatinine (Misc Panel) 0.6 MG/DL 11/01/182328 POC Hematocrit (Misc Panel) 30.0 % L 11/01/182328 CBC/BMP Laboratory Tests 11/01/18 23:27 Red Blood Count 3.42 L, Mean Corpuscular Volume 93.6, Mean Corpuscular He moglobin 29.2, Mean Corpuscular Hemoglobin Concent 31.3 L, Red Cell Distribution Width 15.8 H, Neutrophils (%) (Auto) 70.3 H, Lymphocytes (%) (Auto) 25.5, Monocytes (%) (Auto) 1.1, Eosinophils (%) (Auto) 0.9, Basophils (%) (Auto) 0.4, Neutrophils # (Auto) 6.0, Lymphocytes # (Auto) 2.2, Monocytes # (Auto) 0.1, Eosinophils # (Auto) 0.1, Basophils # (Auto) 0.0 Assessment/Plan 1) Left lower extremity DVT - lovenox sc 1mg/kg 2) PE - new onset- prior to admission - lovenox SC 1mg/kg, echo ordered and consider changing to oral apixaban once echo work up complete 3) colorectal cancer - undergoing chemotherapy (cycle 2 or 12) . Follows with Dr Rosenberg. Per nursing staff - not accessing port per protocol for active chemotherapy patients. PATIENT AND DAUGHTER STATE IF ANY SURGERY IS NEEDED, THEY REQUEST TRANSFER TO [facility] WHERE HER PHYSICIANS ARE LOCATED Health care proxy: daughter - Erica CODE STATUS: FULL DVT PROPHYLAXIS: none as patient is on enoxaprin for PE Plan / VTE VTE Prophylaxis Ordered?: No (on therapeutic lovenox for PE) NILTON DE LA FUENTE DO Nov 02, 2018 00:52
[2018-11-02] MEDS: MULTIVITAMINS/MINERALS THERAP 1 TAB PO SCH ×2 (09:00→20:57)
[2018-11-02] MEDS: MIRALAX *UNIT DOSE* 17GM PACKET PO SCH (09:00)
[2018-11-02] MEDS: VITAMIN D 1,000 INTERNATIONAL UNITS TABLET PO SCH ×2 (09:17→20:57)
[2018-11-02] MEDS: ENOXAPARIN 60 MG/0.6 ML SYR (J1650) SC SCH (13:45)
[2018-11-02] MEDS ORDERED: SLF 3 ML SYR IV PRN (16:45)
[2018-11-02] MEDS: SLF 3 ML SYR IV SCH (20:57)
[2018-11-03] MEDS: ENOXAPARIN 60 MG/0.6 ML SYR (J1650) SC SCH ×2 (02:09→12:34)
[2018-11-03 04:45] VITALS: BP 106/66
[2018-11-03] MEDS: SLF 3 ML SYR IV SCH (05:22)
[2018-11-03 05:55] LABS: HEMATOCRIT 28.2 % (36.0-47.0); HEMOGLOBIN 8.7 g/dl (12.0-15.5); MEAN CORPUSCULAR HEMOGLOBIN 27.8 pg (27.0-33.0); MEAN CORPUSCULAR HGB CONC 30.9 g/dl (32.0-36.5); MEAN CORPUSCULAR VOLUME 90.1 fl (80.0-96.0); PLATELET COUNT, AUTOMATED 207 10^3/uL (150-450); RED BLOOD COUNT 3.13 10^6/uL (4.00-5.40); WHITE BLOOD COUNT 11.4 10^3/uL (4.0-10.0)
[2018-11-03 06:22] LABS: BLOOD UREA NITROGEN 8 MG/DL (7-18); CALCIUM LEVEL 8.3 MG/DL (8.8-10.2); CARBON DIOXIDE LEVEL 28 MEQ/L (21-32); CHLORIDE LEVEL 108 MEQ/L (98-107); CREATININE FOR GFR 0.56 MG/DL (0.55-1.30); GLOMERULAR FILTRATION RATE > 60.0 (>45); GLUCOSE, FASTING 103 MG/DL (70-100); POTASSIUM SERUM 3.8 MEQ/L (3.5-5.1); SODIUM LEVEL 140 MEQ/L (136-145)
[2018-11-03 08:00] VITALS: BP 119/63
[2018-11-03] MEDS: VITAMIN D 1,000 INTERNATIONAL UNITS TABLET PO SCH (08:48)
[2018-11-03] MEDS ORDERED: LOVE0.4I2 SC (08:55)
[2018-11-03] MEDS: MIRALAX *UNIT DOSE* 17GM PACKET PO SCH (09:00)
[2018-11-03] MEDS: MULTIVITAMINS/MINERALS THERAP 1 TAB PO SCH (09:00)
--- NOTE | 2018-11-03 15:39 | DS.PDOC ---
Discharge Summary General Date of Admission Nov 02, 2018 at 00:52 Date of Discharge 11/03/18 Discharge Summary PROCEDURES PERFORMED DURING STAY: [None]. ADMITTING DIAGNOSES: 1. PE/DVT DISCHARGE DIAGNOSES: 1. PE/DVT 2. Colorectal cancer COMPLICATIONS/CHIEF COMPLAINT: Pulmonary Emboli, Swelling Of Left Lower Extremity. HISTORY OF PRESENT ILLNESS: 68 yo female with PMHx colorectal cancer (on chemo - FOLFOX) presents with sudden left leg swelling on 10/31/18 that progressively worsened with pain. She states similar episode occured on 10/11 but resolved 1-2 days later and there was no signs of DVT at that time. While in ED, US was performed and showed a left leg DVT. Subsequent CTA chest also showed PE. Patient denied CP, SOB, MIRAMONTES, N/V/D. HOSPITAL COURSE: Patient admitted for further evaluation and treatment. Underwent Lovenox teachings for independent administration of Lovenox at home. Echocardiogram completed. DISCHARGE MEDICATIONS: Please see below. ALLERGIES: Please see below. PHYSICAL EXAMINATION ON DISCHARGE: VITAL SIGNS: Please see below. GENERAL: NAD, lying comfortably in bed HEENT: NC/AT NECK: supple CARDIOVASCULAR EXAMINATION: +S1S2, RRR RESPIRATORY EXAMINATION: CTA B/L ABDOMINAL EXAMINATION: soft, NT, +BS EXTREMITIES: LLE swelling LABORATORY DATA: Please see below. IMAGING: CTA CHEST: IMPRESSION: 1. There are multiple bilateral pulmonary emboli located in the right upper lobe segmental artery, lateral segmental branch artery to the middle lobe, interlobar and segmental arteries on the right and distal interlobar/posterior segmental arteries in the left lower lobe. 2. There is no right heart strain demonstrated. ACTIVITY: [As tolerated]. DIET: As tolerated DISPOSITION: 01 Home, Self-Care. DISCHARGE INSTRUCTIONS: 1. Follow up with PCP in 3-5 days. 2. Follow up oncologist in 3-7 days or as scheduled. DISCHARGE CONDITION: [Stable]. TIME SPENT ON DISCHARGE: 35 minutes. Vital Signs/I&Os Vital Signs Date Time Temp Pulse Resp B/P (MAP) Pulse Ox O2 Delivery O2 Flow Rate FiO2 11/03/18 08:00 98.4 84 18 119/63 (81) 98 11/02/18 01:20 Room Air I&O- Last 24 Hours up to 6 AM 11/03/18 06:00 Intake Total 480 ml Output Total 200 ml Balance 280 ml Laboratory Data Labs 24H Laboratory Tests 2 11/03/18 05:35: Nucleated Red Blood Cells % (auto) 0.0, Anion Gap 4L, Glomerular Filtration Rate > 60.0, Blood Urea Nitrogen 8, Creatinine 0.56, Sodium Level 140, Potassium Level 3.8, Chloride Level 108H, Carbon Dioxide Level 28, Calcium Level 8.3L CBC/BMP Laboratory Tests 11/03/18 05:35 Red Blood Count 3.13 L, Mean Corpuscular Volume 90.1, Mean Corpuscular Hemoglobin 27.8, Mean Corpuscular Hemoglobin Concent 30.9 L, Red Cell Distribution Width 15.5 H, Calcium Level 8.3 L Discharge Medications Scheduled Cholecalciferol (Vitamin D3) (Vitamin D3) 1,000 Unit Tablet, 1,000 UNIT PO BID, (Reported) Enoxaparin Sodium (Lovenox) 60 Mg/0.6 Ml Syringe, 50 MG SC Q12H Multivitamins (Thera M Plus Tablet) 1 Each Tablet, 1 TAB PO BID, (Reported) Scheduled PRN Acetaminophen (Tylenol Extra Strength) 500 Mg Tablet, 500 MG PO Q4H PRN for PAIN, (Reported) Melatonin (Melatonin) 5 Mg Tablet, 5 MG PO QHS PRN for SLEEP, (Reported) Ondansetron HCl (Ondansetron HCl) 8 Mg Tablet, 8 MG PO Q6H PRN for NAUSEA OR VOMITING, (Reported) Prochlorperazine Maleate (Prochlorperazine Maleate) 10 Mg Tablet, 10 MG PO Q8H PRN for NAUSEA OR VOMITING, (Reported) Propylene Glycol/Peg 400/Pf (Systane 0.3-0.4% Eye Drop) 1 Each Droperette, 1 DROP OU QID PRN for DRY EYES, (Reported) Allergies Coded Allergies: bee venom protein (honey bee) (Verified Allergy, Intermediate, SWELLING AND REDNESS, 08/17/18) spider venom (Unverified Allergy, Intermediate, BLACK AND BLUE, SWELLING, 08/18/18) TAPE (Verified Allergy, Unknown, SENSITIVIY, 08/17/18) Coconut (Verified Adverse Reaction, Intermediate, VIOLENTLY ILL, 08/17/18) Crab (Verified Adverse Reaction, Intermediate, VIOLENTLY ILL, 08/17/18) aspartame (Verified Adverse Reaction, Intermediate, HEADACHE, 11/02/18) tree nut (Verified Adverse Reaction, Intermediate, MIGRAINES, 08/17/18) aspirin (Verified Adverse Reaction, Unknown, 08/17/18) RAYMON CASTELLANO MD Nov 03, 2018 15:39
== END 2018-11-03 13:21 | disposition home or self-care (01) | DRG 299 ==
LOC: M ED 21:25 → M ED INP 11-02 00:52 → M PCU 11-02 02:50
PROVIDERS: ADMIT Family Medicine; ATTEND Internal Medicine
DX: I82.412 Acute embolism and thrombosis of left femoral vein (principal); I26.99 Other pulmonary embolism without acute cor pulmonale; C19 Malignant neoplasm of rectosigmoid junction; Z79.899 Other long term (current) drug therapy; Z88.6 Allergy status to analgesic agent; Z88.8 Allergy status to other drugs, medicaments and biological substances; Z91.018 Allergy to other foods; Z91.013 Allergy to seafood; Z91.038 Other insect allergy status

== ENCOUNTER → 2018-11-11 | Outpatient (CLI) | payer MEDICARE, OTHER ==
[~2018-11-11] MED LIST changes: +ENOX80IN3 SC; +LOVE0.4I2 SC; +MELA1TAB9 PO; +MELA5TAB21 PO; +[UNRECOGNIZED DRUG - OTHER] PO
--- NOTE | 2018-11-11 15:20 | REP ---
Supine upright abdomen for bowel obstruction: There is a stoma in the left lower quadrant. There are surgical amy in the pelvis. There is no bowel distension. There are no air-fluid levels. There is no evidence of bowel obstruction. There is fecal residue throughout the colon compatible with constipation. There are no calcifications. Skeletal soft tissue structures otherwise unremarkable. Impression: There is no evidence of bowel obstruction. There is fecal residue throughout the colon compatible with constipation. Electronically Signed by Pablo Cruz MD 11/11/2018 03:12 P
== END ==
LOC: M RAD 10:51
PROVIDERS: ATTEND Internal Medicine Medical Oncology
DX: K59.00 Constipation, unspecified (principal)

== ENCOUNTER 2018-11-24 16:55 | Emergency (ER) | payer MEDICARE, OTHER ==
[~2018-11-24] VITALS: Ht 162.6 cm; Wt 49.0 kg
[2018-11-24 19:00] VITALS: BP 142/80
[2018-11-24] MEDS ORDERED: NS 500 ML IV ONE (20:00)
[2018-11-24] MEDS ORDERED: ENOXAPARIN 80 MG/0.8 ML SYRINGE (J1650) SC ONE (21:00)
[2018-11-24 23:11] LABS: CLOSTRIDIUM DIFFICILE PCR NEGATIVE (NEGATIVE)
[2018-12-01] MEDS ORDERED: LOVE0.6I2 SC (09:18)
[2018-12-15] MEDS ORDERED: MEGE40SU5 PO (08:20)
== END 2018-11-25 00:11 | disposition home or self-care (01) ==
LOC: M ED 16:55
DX: K52.9 Noninfective gastroenteritis and colitis, unspecified (principal); Z79.899 Other long term (current) drug therapy; Z85.038 Personal history of other malignant neoplasm of large intestine; Z88.6 Allergy status to analgesic agent; Z88.8 Allergy status to other drugs, medicaments and biological substances; Z91.013 Allergy to seafood; Z91.018 Allergy to other foods; Z91.038 Other insect allergy status; Z91.048 Other nonmedicinal substance allergy status; Z91.09 Other allergy status, other than to drugs and biological substances; Z93.3 Colostomy status
CPT/HCPCS: 36415; 36591; 80053; 82270; 82607; 82746; 83605; 83615; 83735; 85027; 87040; 87493; 99284; G0463; J1650

== ENCOUNTER 2018-12-17 09:24 | Outpatient (RCR) | payer MEDICARE, OTHER ==
[2018-09-13 11:23] VITALS: BP 116/76
[2018-09-13 12:54] LABS: HEMOGLOBIN 10.8 g/dl (12.0-15.5); LYMPH % 32.3 % (24.0-44.0); MEAN CORPUSCULAR HEMOGLOBIN 29.2 pg (27.0-33.0); MEAN CORPUSCULAR HGB CONC 32.7 g/dl (32.0-36.5); MEAN CORPUSCULAR VOLUME 89.1 fl (80.0-96.0); NEUTROPHILS % 59.8 % (36.0-66.0); RED BLOOD COUNT 3.7 10^6/uL (4.00-5.40)
[2018-09-13 13:35] LABS: INR 1.12; PROTHROMBIN TIME 14.6 SECONDS (12.1-14.4)
[2018-09-13 13:36] LABS: PARTIAL THROMBOPLASTIN TIME 33.4 SECONDS (25.4-37.6)
--- NOTE | 2018-09-23 08:44 | MEDONC ---
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 MMR stable, KRAS wild type, EGFR negative, NRAS not tested. HISTORY OF PRESENT ILLNESS: Brittney is a 68-year-old woman who had a smoldering diverticulitis like picture in June and July ultimately admitted 08/18/2018 with the diagnosis of diverticulitis. She was watched on bowel rest with antibiotics for several days under Dr. Rosa, but on 08/25/2018 taken to the OR for abdominal exploration. Intraoperative endoscopy revealed the rectosigmoid irregularity. She underwent LAR with end colostomy. Final pathology revealed a 9 cm long circumferential tumor with extensive tumor necrosis invading full thickness of muscularis propria, infiltrating pericolonic fat, extending within 1 mm of serosal surface with marked irregular inflammatory appearance to the serosa with serosal surface tumor possible. Eight lymph nodes collected, none of them involving tumor but several tumor deposits were noted with lymphovascular invasion also present. Final pathologic staging, pT3 versus pT4a, N1cM0 stage III B versus III C. Of note, BRAF mutation was positive, KRAS/EGFR negative with NRAS pending. Brittney is here for medical oncology recommendations. I discussed staging. She reports handling things fairly well since her surgery. The colostomy site is a little sore. She has had no guerline blood in her stool. She has had no fainting, chest pain, palpitations, fever, chills, or dysuria since her discharge from hospital. PAST MEDICAL HISTORY: Chronic low back pain. Question diverticulitis. PAST SURGICAL HISTORY: section, cataract surgery, tubal ligation, bilateral bunion surgery, LAR/colostomy placement as described. ALLERGIES: ASPIRIN causes stomach upset, dyspepsia. No personal history of peptic ulcer disease. MEDICATIONS: - acetaminophen 500 mg 2 tablets p.r.n. as needed q.6 h - vitamin D 1000 units daily - multivitamin daily - [place]-3 fatty acid 1000 mg tabs 2 tablets daily - propylene glycol p.r.n. - sennosides/docusate 1 tablet q.h.s. SOCIAL HISTORY: Patient is a nonsmoker. Alcohol occasionally. Works at [employer]. One brother diagnosed with cancer of bone and lung diagnosed age 60. No other malignancy in the family. HEALTHCARE PROXY: Renetta Asher [phone]. PRIMARY CARE PHYSICIAN: Gabriel Hanson MD/WENDY Morgan REVIEW OF SYSTEMS: 12-system written review completed by the patient positive for weight loss very recently, soreness in the abdomen due to surgery, food allergies including tree nuts, coconut and crab. Remainder of 12 system review negative. PHYSICAL EXAMINATION: Weight 60 kg. Height 5 feet 4 inches. BMI 22. Temperature 98.2. Blood pressure 116/76. Heart rate 100. Respiratory rate 20. O2 sat 98%. Patient is a petite older woman in no distress. Respiratory: Clear lungs to auscultation bilaterally anteriorly and posteriorly. Cardiac: S1, S2, regular rate rhythm, 05/02. Abdomen: Soft, nondistended. Colostomy in place, clean, dry, intact bandage. Slight irritation of the skin just below the bandage and where it is curling up. No blood in vault, soft brown stool. No rebound tenderness. No palpable hepatosplenomegaly or mass. Extremities: No edema. Lymph nodes: No submandibular, cervical, supraclavicular or axillary adenopathy bilaterally. LABORATORY DATA: WBC 10, hemoglobin 10.8, hematocrit 33, platelets 644. CEA 0.8. No preop CEA available. IMPRESSION: Advanced stage III poorly differentiated adenocarcinoma rectosigmoid colon status post LAR diverting colostomy with lymphovascular invasion, tumor deposits though no clear node involvement, suboptimal node collection, T3 versus T4a invasive level of tumor up to if not including serosal surface, BRAF mutation positive, KRAS wild type, EGFR negative, MMR stable, NRAS pending. PLAN: 1. I spoke with Brittney about stage III colon cancer, standard staging including brain imaging, and she is amendable to both. I spoke about standard adjuvant treatment of stage III colon cancer with FOLFOX for 12 cycles; we briefly discussed treatment of stage IV colon cancer as typically also with FOLFOX or 5-FU based treatment sometimes adding bevacizumab or panitumumab if NRAS. However, I also explained BRAF mutation confers a more "chemo resistant" character to colon cancer and that stage for stage the prognosis can be worse with a higher rate of recurrence with BRAF mutation. I explained immunotherapy would not be a typical treatment in an MMR stable patient should staging workup reveal metastatic disease. In second line or third line, combination BRAF targeting agents can be used in advanced colon cancer but up-front treatment remains a 5-FU based multi drug chemotherapy such as FOLFOX. 2. MediPort placement with Dr. Rosa if possible, otherwise as soon as possible. TIME STATEMENT: 60 minutes spent [id number] the patient, more than 50% involving counseling and coordination of care, in addition to answering all of the patient's questions to the best my ability in her apparent satisfaction formulating together the plan outlined above. Electronically Signed by Karen Boss MD 09/23/2018 06:25 P DD: Karen Boss MD 09/22/2018 07:19 P DT: pedro 09/23/2018 08:03 A CC: MD Bushra Chandler RN
[2018-09-29 15:24] VITALS: BP 98/66
[2018-09-29 15:37] LABS: HEMATOCRIT 37.2 % (36.0-47.0); HEMOGLOBIN 11.8 g/dl (12.0-15.5); LYMPH % 15.1 % (24.0-44.0); MEAN CORPUSCULAR HEMOGLOBIN 28.2 pg (27.0-33.0); MEAN CORPUSCULAR HGB CONC 31.7 g/dl (32.0-36.5); MEAN CORPUSCULAR VOLUME 88.9 fl (80.0-96.0); NEUTROPHILS # 25.9 10^3/uL (1.8-7.7); RED BLOOD COUNT 4.19 10^6/uL (4.00-5.40)
[2018-09-29 15:38] LABS: WHITE BLOOD COUNT 32.4 10^3/uL (4.0-10.0)
[2018-09-29 15:46] LABS: INR 1.25; PROTHROMBIN TIME 15.9 SECONDS (12.1-14.4)
[2018-09-29 15:51] LABS: ALBUMIN 3.1 GM/DL (3.5-5.2); BLOOD UREA NITROGEN 14 MG/DL (6-20); CALCIUM LEVEL 8.8 MG/DL (8.5-10.2); CARBON DIOXIDE LEVEL 27 MEQ/L (23-31); CHLORIDE LEVEL 102 MMOL/L (98-107); GLOMERULAR FILTRATION RATE 52.4 (>45); GLUCOSE, FASTING 128 MG/DL (70-105); POTASSIUM SERUM 3.3 MMOL/L (3.5-5.1); TOTAL PROTEIN 6.3 GM/DL (6.4-8.3)
[2018-09-29 15:52] LABS: SODIUM LEVEL 135 MMOL/L (135-145)
--- NOTE | 2018-09-29 21:18 | MEDONC ---
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 INTERVAL HISTORY Brittney was seen here for the first time 09/13/2018. At that point she carried a T3 versus T4N1c pathologic staging of her colon cancer, and was scheduled for PET/CT. This was done 09/21/2018 and reviewed in tumor board today. She is here for results and management recommendations. There was concern about the hypermetabolic focus in the presacral area and it was recommended an immediate abdomen and pelvis CT be obtained to make sure this is not a focus of infection versus postsurgical inflammation. There were other rounded foci of hypermetabolic uptake including upper abdomen, retrocaval lymph node enlarged versus July and August, a large presacral hypermetabolic focus in the pelvis, in the region of the oversewn rectum of uncertain significance, a right sciatic nerve hypermetabolic focus 1 cm, high SUV, left pelvic sidewall focus with a subtle soft tissue induration on corresponding CT, left lower quadrant 1 cm hot nodule adjacent to colostomy site, SUV nearly 8 and another focus in the midline abdominal wound. The radiologic read questioned whether this was postoperative inflammation versus infection. Today Brittney reports feeling very poorly with abdominal pain. White blood cell count greater than 30, up from normal on her first visit here, temperature today 98.4, blood pressure 198/66 versus 116/76 previously. General malaise. She reports feeling so uncomfortable she was not really able to walk very far today. I discussed with her the findings on PET, the need for immediate emergency room admission for additional imaging, IV fluids, possible antibiotics and possible surgical intervention. At length she agreed to this. IMPRESSION Clinical stage III C poorly differentiated BRAF positive adenocarcinoma of rectosigmoid colon now found to have multifocal hypermetabolic implants in the peritoneum and pelvis suspicious for metastatic foci versus infection. Notably no clear-cut liver metastases. New leukocytosis suspicious for infection. PLAN 1. Urgent admission to emergency room. I spoke with Stefania Llanes MD about the patient, advising her of the findings above. I also later at about 06:[address] Rosa who had already been looking at the films. I conveyed to him the ill appearance of the patient. 2. The patient's daughter had expressed a desire that she go to [place]. However I encouraged immediate emergency room evaluation here and transfer to [place] could be at her wish later but fairly immediate imaging would probably be more important given the time it takes to get to [place], the potential wait in the emergency room and so forth. Electronically Signed by Karen Boss MD 09/30/2018 01:02 P DD: Karen Boss MD 09/29/2018 06:25 P DT: jose 09/29/2018 08:53 P CC: MD Bushra Chandler RN
--- NOTE | 2018-09-30 08:02 | MEDONC ---
error Electronically Signed by Karen Boss MD 09/30/2018 01:02 P DD: Karen Boss MD 09/29/2018 06:21 P DT: chetan 09/30/2018 08:01 A CC:
[2018-10-11 15:07] LABS: HEMATOCRIT 32.7 % (36.0-47.0); HEMOGLOBIN 10.4 g/dl (12.0-15.5); LYMPH % 22.7 % (24.0-44.0); MEAN CORPUSCULAR HGB CONC 31.8 g/dl (32.0-36.5); MEAN CORPUSCULAR VOLUME 87.8 fl (80.0-96.0); NEUTROPHILS # 10.5 10^3/uL (1.8-7.7); NEUTROPHILS % 71.1 % (36.0-66.0); RED BLOOD COUNT 3.72 10^6/uL (4.00-5.40); WHITE BLOOD COUNT 14.7 10^3/uL (4.0-10.0)
[2018-10-11 15:17] LABS: ALBUMIN 2.7 GM/DL (3.5-5.2); CARBON DIOXIDE LEVEL 30 MEQ/L (23-31); CHLORIDE LEVEL 103 MMOL/L (98-107); CREATININE FOR GFR 0.78 MG/DL (0.60-1.10); GLOMERULAR FILTRATION RATE > 60.0 (>45); GLUCOSE, FASTING 98 MG/DL (70-105); SODIUM LEVEL 137 MMOL/L (135-145); TOTAL PROTEIN 6.1 GM/DL (6.4-8.3)
[2018-10-11 15:24] LABS: BLOOD UREA NITROGEN 5 MG/DL (6-20); POTASSIUM SERUM 2.7 MMOL/L (3.5-5.1)
--- NOTE | 2018-10-12 12:05 | MEDONC ---
MEDICAL ONCOLOGY FOLLOW-UP DATE OF SERVICE: 10/11/2018 DIAGNOSIS: Stage IIIC versus IV poorly differentiated adenocarcinoma of rectosigmoid colon, BRAF positive, KRAS/EGFR negative, originally diagnosed August 2018 status post LAR with end colostomy, pathology notable for long circumferential tumor with extensive necrosis, full thickness invasion into pericolonic fat, involvement of serosal surface, negative nodes but extranodal tumor deposits with lymphovascular invasion. She was initially seen here 09/13/2018. Staging PET revealed multiple pelvic and upper retroperitoneal and celiac foci of lymphadenopathy, a large presacral hypermetabolic focus in the region of the oversewn rectum, and in tumor board discussion there was concern about possible presacral abscess. The patient presented shortly thereafter with signs of infection including leukocytosis, general malaise, was admitted to the hospital and quickly transferred at her request to [facility] 09/29/2018. There, extensive workup including barium enema, CT, surgical evaluation, colonoscopy via sigmoid via rectal stump with biopsy apparently confirmed persistent large rectal mass with near total obstruction for which biopsy results I do not have, multiple retroperitoneal deposits of lymph node and a large right-sided pelvic mass. At [facility] systemic therapy with radiotherapy reserved only for symptom palliation was recommended. INTERVAL HISTORY: Brittney is here with her daughter Erica. At [facility] biopsy was performed by endoscopy, the results of which are not included in the current records, but I have the records of everything else. C. difficile was confirmed on stool sample. She has been on vancomycin and will complete this tomorrow. She has had clear rectal discharge. 09/30/2018 CT with contrast revealed a large rectal mass, lobulated heterogeneous solid and mildly enhancing appearing to arise from the lower portion of the sacrum, measuring 8 x 6.8 x 6 cm with a presacral abscess ruled out. Her WBC was 33,000 at presentation, stool sample positive for C diff. She was started on p.o. vancomycin and output from the ostomy improved. She is unable to quantify ostomy output. She denies blood in the ostomy. Radiation oncology was consulted while at [facility] as was surgery. Ms. Dunlap would like to follow-up with surgeon she saw, not wanting to return to Dr. Rosa. She awaits contact from the surgeon's office about home management of her ostomy and draining abdominal focus, which has required packing up to now. In addition to the above findings, a lobulated mesenteric right lower quadrant mass up to 3 cm was seen at [facility], prominent bilateral pelvic sidewall nodes, largest 19 mm, all of this deemed to be part of her colorectal colon process. But again, the biopsy reportedly taken we do not have the results of yet. Today, Brittney is here with Erica. 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 She is seemingly confused about certain specifics but her main focus is that she wants to start treatment, she wants to follow-up with the [facility] doctor, Dr. Wong Bhagat, and she wants home health care to manage the surgical problems. She does not have any home health aide normally, but has been getting [facility] for her wound care. Furthermore, she would like any chemotherapy pump to be removed by the home care. Today I focused on explaining the current findings are consistent either with rapidly recurrent or de ada stage IV BRAF positive colon cancer carrying a very poor prognosis. Treatment at this point will be palliative not curative. Treatment would be with FOLFOX q. 2 weeks. I would avoid bevacizumab given her recent surgery and wound healing complications. I reviewed the regimen of FOLFOX including fluorouracil, oxaliplatin, leukovorin, its schedule, and typical side effects focusing on, but not limited to, hand foot syndrome, diarrhea, fatigue, possible alopecia, possible nausea, possible anorexia, possible vomiting, photosensitivity. Brittney signed written informed consent. I could not promise we could have her home health aide removing her port. I outlined the need for a three consecutive day period during which she could have treatment, thus it may or may not be feasible for her to start this week. I would also like the final results of the biopsy to make sure there is no issue of abscess. I answered all the patient's and her daughter's questions to the best of my ability. She then noted she has new left lower extremity swelling, which appeared after she left the hospital and is not on blood thinners. PHYSICAL EXAMINATION: Weight 57 kg, temperature 98.2, blood pressure was recorded, temperature 95. Patient is a slender tired appearing older woman in no distress. Respiratory: Clear lungs to auscultation bilaterally, anteriorly and posteriorly. No wheezes or rales. Cardiac: S1-S2. Regular rate and rhythm. No murmur nor gallop. Abdomen is nondistended, soft, minimally tender. No rebound tenderness. No palpable organomegaly. There is slight clear drainage from the umbilicus. Other incision site well healed. No suprapubic tenderness. No palpable mass. No organomegaly. Extremities subtle left greater than right edema 1+ pitting, mild erythema, minimal calf tenderness. LABS: WBC 14.7, hemoglobin 10, hematocrit 32, platelets 703, MCV 87. Electrolytes notable for potassium 2.7 which was reported after the patient left the office. Remainder of electrolytes unremarkable, liver functions normal, albumin 2.7, CEA pending. IMPRESSION: Clinical metastatic BRAF positive, KRAS and EGFR wild type adenocarcinoma of rectosigmoid colon, [id number], stage IVC disease. Most likely this patient's colorectal tumor was de ada metastatic with staging PET occurring after her initial surgery revealing a large presacral mass, pelvic implants, retroperitoneal lymphadenopathy and implants, status post colostomy. C. difficile infection with reduced diarrheal output, normalized WBC, now completing oral vancomycin course. ECOG performance status 2-3. New left lower extremity swelling suspicious for deep vein thrombosis (DVT) in the setting of recent hospitalization. PLAN: 1. Stat left lower extremity ultrasound, rule out DVT. 2. Provisionally, FOLFOX q. 2 weeks, palliative chemotherapy to begin later this week pending results of [facility] rectal mass biopsy. 3. The patient's hypokalemia was reported after she left the office. I spoke with her by telephone letting her know that the ultrasound was negative for DVT recommending she takes some high potassium foods in tonight including bananas, some orange juice and if on her next labs here she has hypokalemia will consider some standing potassium repletion. TIME STATEMENT: 45 minutes [id number] with the patient more than 50% involved in counseling regarding the findings of the overall [facility] workup, stage IV BRAF positive colon cancer, reviewing and obtaining written informed consent after reviewing the risks, benefits, schedule, side effects. Electronically Signed by Karen Boss MD 10/13/2018 05:59 P DD: Karen Boss MD 10/11/2018 05:21 P DT: chetan 10/12/2018 11:30 A CC:
[2018-10-13 09:18] VITALS: BP 108/71
--- NOTE | 2018-10-13 09:39 | ONC.PHACK ---
CHEMO ADMIN CHECKLIST Order Contains Pt ID: Name, Order on Chemo Order Form?: Yes Order Form Includes ALL: Correct Tx Day, Correct Date, Correct Cycle Number Pt ID on Order form Matches: Pt ID on PHA Label Med on Chemo OrderForm Matches: PHA Label, Med Used for Preparation [facility] Oct 13, 2018 09:39
[2018-10-15 11:30] VITALS: BP 121/71
[2018-10-27 08:42] VITALS: BP 95/68
[2018-10-27 08:50] LABS: HEMATOCRIT 35.2 % (36.0-47.0); HEMOGLOBIN 11.1 g/dl (12.0-15.5); LYMPH % 30.7 % (24.0-44.0); MEAN CORPUSCULAR HEMOGLOBIN 27.8 pg (27.0-33.0); MEAN CORPUSCULAR HGB CONC 31.5 g/dl (32.0-36.5); NEUTROPHILS # 5.7 10^3/uL (1.8-7.7); NEUTROPHILS % 58.1 % (36.0-66.0); WHITE BLOOD COUNT 9.8 10^3/uL (4.0-10.0)
[2018-10-27 09:08] LABS: BLOOD UREA NITROGEN 12 MG/DL (6-20); CARBON DIOXIDE LEVEL 25 MEQ/L (23-31); CHLORIDE LEVEL 104 MMOL/L (98-107); CREATININE FOR GFR 0.89 MG/DL (0.60-1.10); GLOMERULAR FILTRATION RATE > 60.0 (>45); GLUCOSE, FASTING 104 MG/DL (70-105); SODIUM LEVEL 136 MMOL/L (135-145); TOTAL PROTEIN 6.2 GM/DL (6.4-8.3)
[2018-10-27 09:35] VITALS: BP 94/69
--- NOTE | 2018-10-27 09:56 | ONC.PHACK ---
CHEMO ADMIN CHECKLIST Order Contains Pt ID: Name, Order on Chemo Order Form?: Yes Order Form Includes ALL: Correct Tx Day, Correct Date, Correct Cycle Number Pt ID on Order form Matches: Pt ID on PHA Label Med on Chemo OrderForm Matches: PHA Label, Med Used for Preparation [facility] Oct 27, 2018 09:56
[2018-10-27 13:01] VITALS: BP 119/71
--- NOTE | 2018-10-27 14:30 | MEDONC ---
MEDICAL ONCOLOGY HEMATOLOGY FOLLOWUP/TREATMENT VISIT DATE OF SERVICE: 10/27/2018 DIAGNOSIS: Clinical metastatic BRAF positive, KRAS and EGFR wild-type adenocarcinoma of rectosigmoid colon, [id number], stage IV C disease. CURRENT TREATMENT: Palliative chemotherapy with FOLFOX, first ever treatment given on 10/13/2018. INTERVAL HISTORY: Brittney presents today for a scheduled follow-up visit blood work, physical exam and scheduled #2 FOLFOX. Reportedly, she tolerated her first treatment well.She experienced some transient nausea [id number] days after her treatment which resolved with antiemetics. She denies any nausea at this time. When seen 2 weeks ago, Brittney reported subtle lower left extremity swelling. A stat ultrasound was done which was negative for DVT. She denies any lower extremity swelling today. At present, Brittney offers no new complaints. She specifically denies headaches, visual disturbance, dyspnea, nausea or vomiting, diarrhea or constipation, new skeletal pain. ECOG performance status remains 2-3. PHYSICAL EXAMINATION: Weight is 53 kg, temperature 97.9, pulse 118, respirations 20, BP 95/68, O2 sat 97% at rest on room air. GENERAL EXAM: Reveals a petite thin middle-aged female who is clinically stable and in no acute distress. HEENT: No scleral icterus. Oral pharynx, oral mucous membranes normal. Conjunctivae normal. No thyroid enlargement or nodule. No jugular venous distention. Neck supple. Carotid upstrokes 1+, no bruits. Fundi normal bilaterally. RESPIRATORY: Lungs clear bilaterally to auscultation and percussion. No rales, rhonchi, or wheezing. CARDIOVASCULAR: PMI 5th left intercostal space, midline. S1, S2 normal. No S3, S4 or murmurs. Regular rhythm. Femoral, dorsalis pedis pulses 2+ bilaterally. LYMPHATICS: No palpable lymphadenopathy. ABDOMEN: Soft, nontender. Normoactive bowel sounds are present. No palpable organomegaly, rebound or tenderness. Incision site well healed. No suprapubic tenderness. No palpable mass. EXTREMITIES: Without clubbing, cyanosis or edema. LABORATORY DATA: WBC 9.8, ANC 5.7, RBC 4.00, H/H 11.1/35.2, platelets 565. Chemistries are unremarkable with the exception of a low total protein of 6.2 and low albumin of 3.0. A current CEA level is pending as of this dictation. IMPRESSION: 1. Clinical metastatic, BRAF positive, KRAS and EGFR wild-type adenocarcinoma of rectosigmoid colon, [id number], stage IV C disease. Brittney is status post her first ever FOLFOX chemotherapy on 10/13/2018 without incident. She presents today for treatment number two. Offering no new complaints. PLAN: 1. FOLFOX #2 today. 2. Return in 2 weeks for FOLFOX. 3. Labs and office visit with physical exam. Brittney knows to contact us in the interim with any new symptoms, questions or problems. Electronically Signed by Noelle Nazario NP 10/27/2018 03:58 P DD: Noelle Nazario NP 10/27/2018 09:22 A DT: lyndsey 10/27/2018 02:05 P CC:
--- NOTE | 2018-11-08 14:31 | MEDONCTEEN ---
TELEPHONE NOTE DATE: 11/08/2018 A prescription for Lovenox 80 mg prefilled syringes was E-scribed to the patient's pharmacy ([email or web address] on [address], [place]). Brittney was recently discharged from [facility] (11/03/2018) for a new diagnosis of PE/DVT. We received a phone call from the patient's daughter Erica indicating that her mother had only one Lovenox prefilled syringe remaining. Based on the discharge summary, Brittney was discharged on Lovenox 50 mg subcu q. 12 hours. Based on the patient's current documented weight of 53 kg, a new prescription for Lovenox 80 mg prefilled syringes to be given subcu once a day was E-scribed to the patient's pharmacy. The current Lovenox daily dosing is 1.5 mg/kg. It was explained to Erica, that this is a different dose than her mother has been self injecting. she has been self injecting. It was also reinforced to Erica that the dose of Lovenox going forward is 80 mg subcu daily. Erica verbalized understanding. She will be bringing in her mother to see Dr. Boss for followup and possible FOLFOX as scheduled on 11/10/2018. Electronically Signed by Noelle Nazario NP 11/09/2018 07:31 A DD: Noelle Nazario NP 11/08/2018 09:15 A DT: chetan 11/08/2018 02:19 P CC:
[2018-11-10 08:52] VITALS: BP 120/76
[2018-11-10 09:02] LABS: HEMATOCRIT 34.3 % (36.0-47.0); LYMPH % 58.5 % (24.0-44.0); MEAN CORPUSCULAR HEMOGLOBIN 28.6 pg (27.0-33.0); MEAN CORPUSCULAR HGB CONC 32.1 g/dl (32.0-36.5); NEUTROPHILS # 0.7 10^3/uL (1.8-7.7); NEUTROPHILS % 20.5 % (36.0-66.0); RED BLOOD COUNT 3.85 10^6/uL (4.00-5.40); WHITE BLOOD COUNT 3.3 10^3/uL (4.0-10.0)
[2018-11-10 09:36] LABS: ALBUMIN 3.1 GM/DL (3.5-5.2); BLOOD UREA NITROGEN 13 MG/DL (6-20); CARBON DIOXIDE LEVEL 24 MEQ/L (23-31); CHLORIDE LEVEL 102 MMOL/L (98-107); CREATININE FOR GFR 0.89 MG/DL (0.60-1.10); GLOMERULAR FILTRATION RATE > 60.0 (>45); GLUCOSE, FASTING 113 MG/DL (70-105); SODIUM LEVEL 133 MMOL/L (135-145); TOTAL PROTEIN 6.2 GM/DL (6.4-8.3)
--- NOTE | 2018-11-12 08:15 | MEDONC ---
MEDICAL ONCOLOGY FOLLOWUP NOTE DATE OF SERVICE: 11/10/2018 DIAGNOSES: 1. 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 2. Recent diagnosis of left lower extremity DVT and multiple bilateral pulmonary emboli. CURRENT TREATMENT: Palliative chemotherapy with FOLFOX, first ever treatment given on 10/13/2018. INTERVAL HISTORY: Brittney presents today for a scheduled followup visit, blood work and for scheduled FOLFOX treatment #3. As noted above, she had a recent hospital admission on 11/02/2018 through 11/03/2018 for complaints of left lower extremity swelling and a new onset of shortness of breath. Left lower extremity ultrasound was positive for DVT, CT angio confirmed multiple bilateral pulmonary emboli. Brittney was discharged home on Lovenox. She continues with Lovenox 80 mg subcu daily. She is able to do her own Lovenox injection without difficulty. At present, Brittney denies any dyspnea. She states her breathing is now back to baseline. She also indicates that the swelling in her lower left extremity has significantly improved but not completely resolved. At present, Brittney offers no new complaints. She denies headaches or visual disturbance, nausea or vomiting, diarrhea or constipation, new skeletal pain. ECOG performance status remains 2. PHYSICAL EXAMINATION: Weight is 52.5 kg, temperature 98.1, pulse 82, respirations 18, BP 120/76, O2 sat 98% at rest on room air. GENERAL: Exam reveals a petite, thin, middle-aged female who is clinically stable and in no acute distress. HEENT: No scleral icterus. Oral pharynx, oral mucous membranes normal. Conjunctivae normal. No thyroid enlargement or nodule. No jugular venous distention. Neck supple. Carotid upstrokes 1+, no bruits. Fundi normal bilaterally. RESPIRATORY: Lungs clear bilaterally to auscultation and percussion. No rales, rhonchi, or wheezing. CARDIOVASCULAR: PMI 5th left intercostal space, midline. S1, S2 normal. No S3, S4 or murmurs. Regular rhythm. Femoral, dorsalis pedis pulses 2+ bilaterally. LYMPHATICS: No palpable lymphadenopathy. ABDOMEN: Soft, nontender. Bowel sounds normal. No tenderness, guarding, or rebound. No palpable masses or hepatosplenomegaly. MUSCULOSKELETAL: No focal skeletal tenderness to percussion. No joint swelling, warmth, tenderness, or erythema. SKIN: No rash, ecchymosis, or petechiae. Normal turgor. EXTREMITIES: Positive for mild swelling in the left lower extremity proximally to distally, reportedly significantly improved. LABORATORY DATA: CBC unremarkable with the exception of neutropenia with an ANC of 700. Chemistries are pending as is a CEA level. IMPRESSION: Clinical metastatic, BRAF positive, KRAS and EGFR wild type adenocarcinoma of rectosigmoid colon, [id number], stage IV C disease. Brittney has completed two FOLFOX chemotherapy treatments. She had a recent hospital admission for bilateral pulmonary emboli and left lower extremity DVT, she continues on Lovenox 80 mg subcu daily. Brittney indicates that her breathing is now back to baseline. She also reports significant improvement in her left lower extremity swelling. PLAN: 1. Based on the patient's neutropenia today, treatment will be held. 2. She was advised should she develop any fevers or shaking chills to report directly to the nearest emergency room. 3. Continue Lovenox 80 mg subcu daily. 4. Return in 1 week for a followup visit, repeat blood work, and possible delayed day 1 cycle #3 FOLFOX. Electronically Signed by Noelle Nazario NP 11/12/2018 02:17 P DD: Noelle Nazario NP 11/10/2018 12:30 P DT: pedro 11/12/2018 08:05 A CC:
[2018-11-17 08:36] VITALS: BP 102/67
[2018-11-17 08:45] LABS: HEMATOCRIT 37.4 % (36.0-47.0); LYMPH % 18.1 % (24.0-44.0); MEAN CORPUSCULAR HEMOGLOBIN 28.6 pg (27.0-33.0); MEAN CORPUSCULAR HGB CONC 32.1 g/dl (32.0-36.5); MEAN CORPUSCULAR VOLUME 89.2 fl (80.0-96.0); NEUTROPHILS # 20.3 10^3/uL (1.8-7.7); NEUTROPHILS % 75.1 % (36.0-66.0); RED BLOOD COUNT 4.19 10^6/uL (4.00-5.40)
[2018-11-17 08:59] LABS: ALBUMIN 2.9 GM/DL (3.5-5.2); CREATININE FOR GFR 1.01 MG/DL (0.60-1.10); GLOMERULAR FILTRATION RATE 57.9 (>45); TOTAL PROTEIN 6.5 GM/DL (6.4-8.3)
--- NOTE | 2018-11-17 10:45 | ONC.PHACK ---
CHEMO ADMIN CHECKLIST Order Contains Pt ID: Name, Order on Chemo Order Form?: Yes Order Form Includes ALL: Correct Tx Day, Correct Date, Correct Cycle Number Pt ID on Order form Matches: Pt ID on PHA Label Med on Chemo OrderForm Matches: PHA Label, Med Used for Preparation [facility] Nov 17, 2018 10:45
--- NOTE | 2018-11-19 08:44 | MEDONC ---
MEDICAL ONCOLOGY FOLLOWUP/TREATMENT NOTE DATE OF SERVICE: 11/17/2018 DIAGNOSES: 1. 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 2. Recent diagnosis left lower extremity DVT and multiple bilateral pulmonary emboli. CURRENT TREATMENT: Palliative chemotherapy with FOLFOX, first ever treatment given on 10/13/2018. INTERVAL HISTORY: Brittney presents today for a scheduled followup visit, blood work and for possible delayed FOLFOX treatment #3. When she was seen 1 week ago (11/10/2018) her chemotherapy was held secondary to neutropenia with an ANC of 700. Fortunately, Brittney's neutropenia resolved without incident. Since we saw her last, she did have a plain x-ray of the abdomen flat plate and upright done on 11/11/2018 to rule out obstruction. She had not had any colostomy output for 4 days. The x-ray was negative for evidence of bowel obstruction. It did identify fecal residue throughout the colon compatible with constipation. With the use of MiraLAX, Brittney indicates that the colostomy is now functioning well. She continues with Lovenox 80 mg subcu daily. Her breathing is back to baseline. The swelling in her lower left extremity has almost completely resolved. At present, Brittney offers no new complaints. Unfortunately, her weight is down 16 pounds from baseline in September. She states that she just does not have much of an appetite due to a sense of decreased taste. Currently, no nausea or vomiting or other new complaints. PHYSICAL EXAMINATION: Weight today is 50 kg, temperature 98.2, pulse 123, respiratory rate 18, BP 102/67, O2 sat 99% at rest on room air. General exam reveals a pleasant, well-groomed white female who is actually resting comfortably in the exam chair today versus lying on the exam table upon entering the room. Cardiac is S1-S2. Lung sounds are clear. Abdomen is soft, symmetrical, with normal active bowel sounds. No guarding or rebound, hepatosplenomegaly, mass or bruit. Extremities: Positive for mild residual swelling in the left lower extremity proximally to distally significantly improved. Right lower extremity without clubbing, cyanosis or edema. LABORATORY DATA: WBC 27.0, ANC 20.3, 75% segs, 18% lymphs, RBC 4.19, H/H 12.0, 37.4, platelets 809. Chemistries indicate a slightly low sodium of 134, nonfasting glucose of 120, AST of 32, alkaline phosphatase of 186, albumin low at 2.9. A current CEA level is pending as of this dictation. IMPRESSION: Brittney is a very pleasant, 68-year-old female with metastatic BRAF positive, KRAS and EGFR wild type adenocarcinoma of the rectosigmoid colon, [id number], stage IV C disease. She has completed two FOLFOX chemotherapy treatments. Had a recent hospital admission for bilateral pulmonary emboli and left lower extremity DVT, has had problems with constipation now resolved. Brittney's CBC today indicates leukocytosis and thrombocytosis of unclear etiology, possibly an underlying myeloproliferative disorder. Brittney's performance status is 1-2. She overall looks significantly better today than at previous appointments. PLAN: 1. Proceed with FOLFOX #3 today with a dose reduction of all of her meds based on her current BSA. New orders were written. 2. Obtain a JAK2, flow cytometry, MPL, and CALR to further evaluate the patient's leukocytosis and thrombocytosis. 3. Continue Lovenox 80 mg subcu daily. 4. Return in 2 weeks for a followup visit, physical exam, and repeat blood work. Brittney will be due for FOLFOX #4 that day as well. She knows to contact us in the interim of her appointment with any new symptoms, questions or problems. Electronically Signed by Noelle Nazario NP 11/27/2018 12:28 P DD: Noelle Nazario NP 11/17/2018 10:14 A DT: pedro 11/19/2018 08:34 A CC:
[2018-11-19 12:15] VITALS: BP 100/68
[2018-11-24 15:33] VITALS: BP 100/68
[2018-11-24 16:54] LABS: BASO # 0.1 10^3/uL (0.0-0.2); BASO % 0.3 % (0.0-1.0); EOS % 0.1 % (0.0-3.0); HEMATOCRIT 34.8 % (36.0-47.0); LYMPH % 18.5 % (24.0-44.0); MEAN CORPUSCULAR HEMOGLOBIN 28.8 pg (27.0-33.0); MEAN CORPUSCULAR HGB CONC 31.6 g/dl (32.0-36.5); MEAN CORPUSCULAR VOLUME 91.1 fl (80.0-96.0); MONO # 0.6 10^3/uL (0.0-0.8); MONO % 2.2 % (0.0-5.0); NEUTROPHILS # 20.7 10^3/uL (1.8-7.7); NEUTROPHILS % 77.4 % (36.0-66.0); PLATELET COUNT, AUTOMATED 463 10^3/uL (150-450); RED BLOOD COUNT 3.82 10^6/uL (4.00-5.40)
[2018-11-24 16:55] LABS: WHITE BLOOD COUNT 26.8 10^3/uL (4.0-10.0)
[2018-11-24 17:18] LABS: ALBUMIN 2.6 GM/DL (3.2-5.2); ALT/SGPT 43 U/L (12-78); BILIRUBIN,TOTAL 0.2 MG/DL (0.2-1.0); BLOOD UREA NITROGEN 13 MG/DL (7-18); CALCIUM LEVEL 9.3 MG/DL (8.8-10.2); CARBON DIOXIDE LEVEL 26 MEQ/L (21-32); CHLORIDE LEVEL 106 MEQ/L (98-107); CREATININE FOR GFR 0.65 MG/DL (0.55-1.30); GLOMERULAR FILTRATION RATE > 60.0 (>45); GLUCOSE, FASTING 99 MG/DL (70-100); MAGNESIUM LEVEL 2.2 MG/DL (1.8-2.4); POTASSIUM SERUM 4.1 MEQ/L (3.5-5.1); SODIUM LEVEL 139 MEQ/L (136-145); TOTAL PROTEIN 6.2 GM/DL (6.4-8.2)
[2018-11-24 17:26] LABS: FOLATE > 24.0 NG/ML; VITAMIN B12 LEVEL 461 PG/ML
--- NOTE | 2018-11-25 09:16 | MEDONC ---
DATE OF SERVICE: 11/24/2018 REASON FOR VISIT: 1. 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 Recent diagnosis left lower extremity DVT with multiple bilateral pulmonary emboli. CURRENT TREATMENT: Palliative chemotherapy with FOLFOX, first treatment given on 10/13/2018. INTERVAL HISTORY/REVIEW OF SYSTEMS: Mrs. Dunlap is a 68-year-old female with the above diagnosis. Currently undergoing therapy with FOLFOX, cycle 3 was delayed due to cytopenia. The patient's ANC was 700 on 11/12/2018. The neutropenia has resolved without using GCSF injections. She presented to the clinic today. She previously called as she was experiencing more foul odor from the colostomy. The patient's daughter was present during the encounter and she was providing also the diagnosis. The patient denies any nausea. She had significantly decreased activity and poor appetite and is not able to eat. Review of systems unremarkable. ALLERGIES: CRAB, TAPE, ASPARTAME, ASPIRIN, BEE VENOM PROTEIN, SPIDER VENOM, TREE NUTS. Past medical, surgical, social history and medications reconciled, reviewed and updated in EMR. PHYSICAL EXAMINATION: Temperature 97.2, heart rate 110, blood pressure 150/68, LUNGS: Bilaterally clear, no added sounds. CARDIAC: S1, S2, tachycardic. No evidence of murmur. HEAD/NECK: Temporal wasting. No other abnormal findings. ABDOMEN: Soft, nontender. Colostomy is present and the stool in the colostomy appeared melanotic and slightly red. RECTAL: Digital rectal examination was not done. There was slight drainage noted in the rectal area. NEUROLOGIC: Nonfocal. LYMPHATICS: Unremarkable. EXTREMITIES: Overall the patient is dependent with a cane. Otherwise, the patient is debilitated. LABORATORY DATA: 11/24/2018 white blood cell count 26.8, hemoglobin 11, platelets 463, neutrophils 7.4. Chemistry unremarkable except for albumin 2.6. AST 46, alkaline phosphatase 150. The patient's Clostridium (C.) difficile was done on 11/24/2018. C difficile PCR 0 to 7 NAP, B1 pending. ASSESSMENT AND PLAN: This is a 68-year-old female with adenocarcinoma of the rectosigmoid colon. Positive KRAS and EGFR. The patient's cycle 3 of FOLFOX was delayed due to neutropenia. The patient presents with poor performance status, decline and evidence of dehydration with tachycardia that was sinus tachycardia that has not improved during the examination. ECOG performance status is 3. PLAN: Admit to the hospital with plan for rehydration. Clostridium (C.) difficile PCR testing on the stool. Evidence of melanotic stool in the colostomy. Order occult blood test. Pulmonary. The patient has PEE and we will continue Lovenox at 30 mg subcutaneously daily and that will be subject to whether the patient has stool positive for blood or not. I spent 45 minutes during this encounter with more than 50% counseling the patient and the daughter about the above plan of care. Both voiced understanding; however, they were hesitant about admission here or the surgeon who is practicing in [place], and they finally agreed to go to [facility]. The patient's case was discussed with the emergency room physician intending to followup. Otherwise, CBC and CMP will be ordered. The patient will return to the clinic as previously scheduled with Dr. Boss. Electronically Signed by Tiago Cedeño MD 11/25/2018 08:47 P DD: Tiago Cedeño MD 11/25/2018 08:08 A DT: chirag 11/25/2018 08:40 A CC:
[2018-11-28 08:26] LABS: JAK2 MUTATIONS FOR PATH SENDOU See Pathology Report
[2018-12-01 08:48] VITALS: BP 79/58
[2018-12-01 09:00] LABS: HEMATOCRIT 35.8 % (36.0-47.0); HEMOGLOBIN 11.3 g/dl (12.0-15.5); LYMPH % 44.7 % (24.0-44.0); MEAN CORPUSCULAR HEMOGLOBIN 28.3 pg (27.0-33.0); MEAN CORPUSCULAR HGB CONC 31.6 g/dl (32.0-36.5); MEAN CORPUSCULAR VOLUME 89.6 fl (80.0-96.0); NEUTROPHILS # 3.5 10^3/uL (1.8-7.7); NEUTROPHILS % 40.7 % (36.0-66.0); RED BLOOD COUNT 3.99 10^6/uL (4.00-5.40); WHITE BLOOD COUNT 8.5 10^3/uL (4.0-10.0)
[2018-12-01 09:15] LABS: ALBUMIN 2.9 GM/DL (3.5-5.2); BLOOD UREA NITROGEN 13 MG/DL (6-20); CARBON DIOXIDE LEVEL 26 MEQ/L (23-31); CHLORIDE LEVEL 102 MMOL/L (98-107); CREATININE FOR GFR 0.85 MG/DL (0.60-1.10); GLOMERULAR FILTRATION RATE > 60.0 (>45); GLUCOSE, FASTING 92 MG/DL (70-105); SODIUM LEVEL 134 MMOL/L (135-145); TOTAL PROTEIN 5.8 GM/DL (6.4-8.3)
--- NOTE | 2018-12-01 09:39 | ONC.PHACK ---
CHEMO ADMIN CHECKLIST Order Contains Pt ID: Name, Order on Chemo Order Form?: Yes Order Form Includes ALL: Correct Tx Day, Correct Date, Correct Cycle Number Pt ID on Order form Matches: Pt ID on PHA Label Med on Chemo OrderForm Matches: PHA Label, Med Used for Preparation [facility] Dec 01, 2018 09:39
[2018-12-01 09:42] VITALS: BP 100/67
--- NOTE | 2018-12-03 07:23 | MEDONC ---
MEDICAL ONCOLOGY FOLLOWUP DATE OF SERVICE: 12/01/2018 DIAGNOSIS: 1. 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 2. Recent diagnosis of left lower extremity DVT and multiple bilateral pulmonary emboli. CURRENT TREATMENT: Palliative chemotherapy with FOLFOX, first ever treatment given 10/13/2018. Here today for treatment number four. Indefinite anticoagulation therapy with Lovenox 80 mg subcu daily. INTERIM HISTORY: Brittney presents today for a scheduled follow-up visit, blood work and for FOLFOX number four. She was seen most recently for an unscheduled visit by Dr. Cedeño on 11/24/2018 for complaints of a foul odor from her colostomy. Brittney was subsequently transferred to the ER for further evaluation. Final diagnosis was enterocolitis. Blood cultures done at that time were negative. Stool for C. difficile was also negative. Brittney tells me today that her colostomy is working well. She does not notice any foul odor from the colostomy. She denies any abdominal pain or discomfort. No nausea. Appetite remains poor. No other new complaints are offered today. PHYSICAL EXAMINATION: Weight is 49.4 kg, temperature 98.1, pulse 125, respirations 20. Initial BP 79/58, upon recheck after resting comfortably in the room for a few minutes BP was 98/56. BP recheck in the chemotherapy infusion room was 100/67. Pulse rate down to 92. O2 sat 97% at rest on room air. GENERAL: Exam reveals a very thin middle-aged white female who is clinically stable and in no acute distress. CARDIAC: S1-S2 without murmur. LUNGS: Sounds are clear. ABDOMEN: Positive for a colostomy and a scant amount of stool in the colostomy bag. Abdomen is soft and nontender with normal active bowel sounds. No guarding or rebound. EXTREMITIES: Without clubbing, cyanosis. Resolving left lower extremity edema. LABORATORY DATA: WBC 8.5, ANC 3.5, RBC 3.99, hemoglobin and hematocrit 11.3, 35.8, platelets 539. Chemistries are pending as of this dictation. A current CEA level is also pending. Brittney's most recent CEA level from 11/17/2018 was 1.5. IMPRESSION: Brittney is here today for FOLFOX number four. She claims to overall feel well and is eager to proceed with treatment. I do not see any contraindications to treating her today. For appetite we will give her Megace 400 mg/10 mL with instructions to take 20 mL every morning. Brittney will continue with her Lovenox 80 mg subcu daily. A new prescription for the Lovenox was E-scribed to her pharmacy. We will also hydrate Brittney with one liter of NS for extra hydration when she returns for pump off. PLAN: 1. Proceed with FOLFOX number four today. 2. Return in 2 weeks for a brief follow-up visit prior to proceeding with FOLFOX number five with labs including a CBC with differential and stat CMP. Brittney knows to contact our office in the interim of her appointment with any new symptoms, questions or problems. Electronically Signed by Noelle Nazario NP 12/03/2018 03:26 P DD: Noelle Nazario NP 12/01/2018 10:18 A DT: chetan 12/03/2018 07:04 A CC:
[2018-12-03 12:18] VITALS: BP 102/67
[2018-12-15 08:15] VITALS: BP 82/62
[2018-12-15 08:31] LABS: HEMATOCRIT 35.6 % (36.0-47.0); HEMOGLOBIN 11.3 g/dl (12.0-15.5); MEAN CORPUSCULAR HEMOGLOBIN 28.7 pg (27.0-33.0); MEAN CORPUSCULAR HGB CONC 31.7 g/dl (32.0-36.5); MEAN CORPUSCULAR VOLUME 90.4 fl (80.0-96.0); PLATELET COUNT, AUTOMATED 457 10^3/uL (150-450); RED BLOOD COUNT 3.94 10^6/uL (4.00-5.40); WHITE BLOOD COUNT 12.9 10^3/uL (4.0-10.0)
[2018-12-15 09:20] LABS: ATYPICAL LYMPH 2 % (0-5); EOSINOPHILS 1 % (0-5); LYMPHOCYTES 31 % (16-52); MONOCYTES 15 % (0-8); NEUTROPHILS 50 % (35-75); PLATELET ESTIMATE NORMAL (NORMAL)
[2018-12-15 09:21] LABS: ANISOCYTOSIS 2+
[2018-12-15 09:50] LABS: ALT/SGPT 14 U/L (12-78); BILIRUBIN,TOTAL 0.3 MG/DL (0.2-1.0); BLOOD UREA NITROGEN 16 MG/DL (7-18); CALCIUM LEVEL 10.4 MG/DL (8.8-10.2); CARBON DIOXIDE LEVEL 20 MEQ/L (21-32); CHLORIDE LEVEL 107 MEQ/L (98-107); CREATININE FOR GFR 0.85 MG/DL (0.55-1.30); GLOMERULAR FILTRATION RATE > 60.0 (>45); GLUCOSE, FASTING 117 MG/DL (70-100); POTASSIUM SERUM 3.2 MEQ/L (3.5-5.1); SODIUM LEVEL 138 MEQ/L (136-145); TOTAL PROTEIN 6.1 GM/DL (6.4-8.2)
[2018-12-15 11:45] VITALS: BP 84/58
[2018-12-16 07:50] VITALS: BP 102/67
[~2018-12-17] VITALS: Ht 162.6 cm; Wt 51.7 kg
[~2018-12-17 09:24] MED LIST changes: +D5W IV ONE; +FLUOROURACIL IV ONE; +FOSAPREPITANT PERIPHERAL LINE 30 MIN INFUSION (PREMIX) IV ONE; +FOSAPREPITANT PERIPHERAL LINE 30 MIN INFUSION IV ONE; +IVP IV ONE; +KCL 10MEQ/100ML SWI (KRUN) SINGLE DOSE IV ONE; +LEUCOVORIN CALCIUM IV ONE; +LEUCOVORIN IV ONE; +NS 1,000 ML IV ONE; +NS 500 ML IV ONE; +OXALIPLATIN IV ONE; +PALONOSETRON 250 MCG IV IV ONE; +SODIUM CHLORIDE 0.9% INJ 10 ML SYR IV PRN; +dexameTHASONE 10 MG IV IV ONE
[2018-12-17 09:56] LABS: HEMATOCRIT 33.6 % (36.0-47.0); HEMOGLOBIN 10.9 g/dl (12.0-15.5); LYMPH % 15.9 % (24.0-44.0); MEAN CORPUSCULAR HEMOGLOBIN 29.3 pg (27.0-33.0); MEAN CORPUSCULAR HGB CONC 32.4 g/dl (32.0-36.5); MEAN CORPUSCULAR VOLUME 90.2 fl (80.0-96.0); NEUTROPHILS # 18.7 10^3/uL (1.8-7.7); NEUTROPHILS % 77.1 % (36.0-66.0); RED BLOOD COUNT 3.72 10^6/uL (4.00-5.40); WHITE BLOOD COUNT 24.2 10^3/uL (4.0-10.0)
[2018-12-17 10:08] LABS: ALBUMIN 2.6 GM/DL (3.5-5.2); BLOOD UREA NITROGEN 10 MG/DL (6-20); CHLORIDE LEVEL 110 MMOL/L (98-107); CREATININE FOR GFR 0.78 MG/DL (0.60-1.10); GLOMERULAR FILTRATION RATE > 60.0 (>45); GLUCOSE, FASTING 117 MG/DL (70-105); SODIUM LEVEL 136 MMOL/L (135-145); TOTAL PROTEIN 5.6 GM/DL (6.4-8.3)
[2018-12-17 10:10] LABS: CARBON DIOXIDE LEVEL 20 MEQ/L (23-31)
[2018-12-17 10:13] VITALS: BP 91/63
[2018-12-17] MEDS ORDERED: KCL 10MEQ/100ML SWI (KRUN) X 2 DOSES (20MEQ TOTAL) IV SCH ×2 (11:00)
[2018-12-17] MEDS ORDERED: NS 1,000 ML IV ONE (11:30)
--- NOTE | 2018-12-17 14:56 | MEDONC ---
MEDICAL ONCOLOGY FOLLOWUP / SCHEDULED TREATMENT VISIT DATE OF SERVICE: 12/15/2018 DIAGNOSES: 1.Clinical metastatic BRAF positive, KRAS and EGFR wild type adenocarcinoma of rectosigmoid colon, [id number] stage IV C disease. 2. Left lower extremity DVT and multiple bilateral pulmonary emboli, on indefinite anticoagulation therapy with Lovenox. CURRENT TREATMENT: Palliative chemotherapy with FOLFOX, first ever treatment given 10/13/2018. Here today for treatment number five. INTERVAL HISTORY: Brittney presents today for a scheduled follow-up visit, blood work and for FOLFOX #5. She presents with extreme generalized malaise and weakness. Reportedly, following her fourth treatment, she is either in bed or in her recliner due to extreme fatigue and weakness. She offers no other new complaints. Reportedly, her appetite is described as "okay." Weight is stable. No dyspnea or current cough. No fevers or chills, nausea, vomiting, diarrhea or constipation. No new skeletal pain. PHYSICAL EXAMINATION: Brittney ambulates with the assistance of her daughter today. She is reclined on exam table. Weight is 49.2 kg, temperature 98.6, initial pulse rate 130. Upon recheck after resting comfortably for 15-20 minutes, heart rate down to 114. Initial BP 82/62, upon recheck 100/71, O2 sat 100% at rest on room air. HEENT: No scleral icterus. Oral pharynx, oral mucous membranes normal. Conjunctivae normal. No thyroid enlargement or nodule. No jugular venous distention. Neck supple. Carotid upstrokes 1+; no bruits. Fundi normal bilaterally. RESPIRATORY: Lungs clear bilaterally to auscultation and percussion. No rales, rhonchi, or wheezing. CARDIOVASCULAR: PMI 5th left intercostal space, midline. S1, S2 normal. No S3, S4, or murmurs. Regular rhythm. Femoral, dorsalis pedis pulses 2+ bilaterally. ABDOMEN: Positive for a colostomy with a scant amount of stool in the colostomy bag. Soft, nontender. Normoactive bowel sounds. No guarding or rebound. EXTREMITIES: Without clubbing, cyanosis or edema. LABORATORY DATA: WBC 12.9. The differential is pending, RBC 3.94, H and H 11.3 and 35.6, platelets 457. Chemistries are unremarkable with the exception of a potassium of 3.2, nonfasting glucose of 117, calcium of 10.4, albumin of 2.0, total protein of 6.1. A current CEA level is pending as of this dictation. IMPRESSION: Brittney presents today for FOLFOX treatment number five with moderate generalized fatigue and malaise, which is concerning. As noted above, she reportedly has either been in bed or her recliner most of her awake hours since her last treatment. I think Brittney's performance status is such that we cannot treat her today. PLAN: 1. Hold FOLFOX #5 today. 2. Hydrate Brittney with 1 liter of normal saline today and again tomorrow. 3. We will add KCl 10 mEq to the patient's IV hydration orders today. 4. Return on 12/17 for repeat laboratories, a followup with Dr. Boss regarding ongoing treatment management, decision making and possible IV hydration. Electronically Signed by Noelle Nazario NP 12/20/2018 07:02 A DD: Noelle Nazario NP 12/15/2018 10:03 A DT: chirag 12/17/2018 02:42 P CC:
--- NOTE | 2018-12-21 10:16 | MEDONC ---
MEDICAL ONCOLOGY FOLLOWUP/TREATMENT VISIT DATE OF SERVICE: 12/17/2018 DIAGNOSES: 1. Stage III C/IV poorly differentiated adenocarcinoma of rectosigmoid colon, BRAF positive, MMR stable, KRAS/ EGFR negative diagnosed August 2018 status post LAR with end colostomy node negative but with extensive extranodal tumor deposits, LVI, and staging PET with multiple hypermetabolic pelvic, retroperitoneal, and celiac lymph node foci with a large presacral hypermetabolic focus in the oversewn rectum concerning initially for abscess but ultimately deemed to be tumor. (See 10/11/2018 note for detailed account of the initial workup with its complications) now on palliative FOLFOX with difficulty tolerating treatment. 2. Chronic leukocytosis, JAK2, CALR, MPL negative; PCR for BCR/ABL not yet tested. 3. History of C difficile while at [facility] in August,. CURRENT THERAPY: Palliative FOLFOX first-line day one cycle one 10/13/2018 status post four cycles with interruptions cycle four 12/01/2018. INTERVAL HISTORY: Brittney's cycle five was held due to generalized decrease in performance status, dehydration, and hyponatremia. Today, she has hypokalemia. She has been here for hydration for two consecutive days. WBC today is 24, this is within her range, hemoglobin and hematocrit 11 and 36 respectively, platelets 510, mild neutrophilia, potassium 2.7, remainder of electrolytes unremarkable. She started Megace, says it is helping. She is eating more and has gained a little weight. She is in a wheelchair and can no longer manage entirely independently. Her daughter helps her a great deal. She does live alone. We talked about restaging scans. She says she is not able to tolerate any further chemotherapy. She is feeling so poorly. She denies blood in the rectum or stoma. She denies fevers or chills. Temperature 97.8, blood pressure 91/63, heart rate 129, respiratory 22, O2 sat 98%. Patient is a very frail appearing older woman speaks slowly accompanied by her daughter Erica. The patient points out her left ankle is more swollen than right. She affirms she is taking her Lovenox daily 80 mg dosed at 1.5 mg/kg. Brittney and Erica today expressed surprise that she is not a candidate for surgery and radiation. I was taken aback by this. Referred to prior notes, particularly one from October 11 in which during the visit we extensively reviewed her PET scan, the palliative nature of treatment, the localized and regional spread of disease evidenced on imaging. It took quite a bit of discussion today to bring the patient and her daughter around to understanding that though once she had been potentially a candidate for curative treatment currently her treatment intent is for to improve not worsen quality of life and to shrink tumor and slow or stop its growth. We all agreed the next step is restaging scans, holding current chemotherapy. Will replete electrolytes today. Continue the IV fluid today and bring Brittney back right after the scan so we can review results. I reviewed again today that with a stable MMR result immunotherapy is less likely to be part of her regimen. She is not tolerating chemotherapy all of which may limit potential therapies. She has BRAF mutation but combined targeted BRAF therapy for colon cancer can have some fairly significant adverse effects with Brittney's performance status now somewhere between 2 and 3 this may be very unrealistic. LABS: WBC reviewed above. IMPRESSION: Clinical stage IV, BRAF positive, KRAS/EGFR wild type, MMR stable stage IV/C, [id number] colorectal adenocarcinoma with regional retroperitoneal celiac lymphadenopathy on postsurgical scans despite surgical pathology being negative for node involvement. Surgical pathology had shown extensive extranodal tissue deposits of tumor. Status post colostomy. Dwindling tolerance for chemotherapy after four cycles of FOLFOX. PLAN: 1. KCl 10 mEq times two today each over 1 hour. 2. 1 liter normal saline today. 3. CT chest, abdomen, pelvis with p.o. and IV contrast restaging. 4. Return to clinic after staging scans to review realistic options for palliation either active or limited to symptom management alone. Should there be disease progression on scans, hospice care will be appropriate. TIME STATEMENT: 40 minutes [id number] with the patient, more than 50% involving counseling, answering questions, reviewing the issues raised by the patient, formulating above plan. ADDENDUM: I also ordered left lower extremity ultrasound to rule out DVT though on full anticoagulation this is low likelihood. Electronically Signed by Karen Boss MD 12/21/2018 05:46 P DD: Karen Boss MD 12/17/2018 10:54 A DT: pedro 12/21/2018 09:51 A CC: MD Bushra Vazquez RN
--- NOTE | 2018-12-24 08:18 | MEDONCTEEN ---
MEDICAL ONCOLOGY TELEPHONE CALL DATE OF SERVICE: 12/22/2018 Dr. Louis of radiology called with a concerning finding on restaging abdomen and pelvis CT. She reports significant disease progression in the abdomen and peritoneum threatened small bowel obstruction with extensive peritoneal studding and edema within the bowel essentially a near carcinomatosis like picture. She says there is not actual bowel obstruction but there is signs of impending small bowel obstruction and asks for clinical correlation. I called the patient's daughter Erica, who then got home and called me back with her mother on the line and we all discussed the findings. I explained that her cancer is progressing through current therapy, that there is a risk of small bowel obstruction, bowel perforation, and risk of massive sepsis and life threatening infection from this. Britntey reports chronic poor energy, fatigue, and some low grade abdominal pain but no rapid progression of her abdominal pain. She continues to eat though in general poor appetite. Her ostomy has output. I explained the poor prognostic significance of progression through current therapy. I reiterated she has BRAF positive colon cancer classically "chemo resistant." Erica has been looking up possible treatments and asks about triple therapy with cetuximab plus combination BRAF targeting agents. I explained this would typically be reserved for a patient with ECOG performance status 0 or 1, Brittney is currently 3 based on her acknowledgment on the phone today of being in a chair or in bed more than 50% of the day. Unfortunately with her extent of disease, her poor performance status and the apparent imminence of bowel obstructing and threatening lesion I think she is not a good candidate for an aggressive new therapy though it does involve pills and non-chemotherapy. Erica and her mother again asked about seeing a surgeon for possible surgical treatment. I explained there is no curative surgery available, and at this point you would have only a palliative role in treating or avoiding bowel obstruction. She already has an ostomy, it is possible an ostomy can be revised, a jejunostomy could possibly be considered. Overall, however I did not recommend surgical evaluation for the purpose of treating her colon cancer. Erica and her mom have an appointment with me this Thursday. They would like to keep that, but I cautioned if in the interval she has progressive pain she should go immediately to the emergency room. I also asked Brittney to think about hospice care as her prognosis is now quite poor with a very treatment refractory tumor type and poor performance status. She said she would consider it. Electronically Signed by Karen Boss MD 12/28/2018 05:02 P DD: Karen Boss MD 12/22/2018 05:47 P DT: pedro 12/24/2018 08:07 A CC:
== END 2018-12-17 09:30 | disposition home or self-care (01) ==
LOC: M ONCM 09:24
PROVIDERS: ATTEND Internal Medicine Medical Oncology
DX: C18.7 Malignant neoplasm of sigmoid colon (principal); D70.1 Agranulocytosis secondary to cancer chemotherapy; Z93.3 Colostomy status; Z86.718 Personal history of other venous thrombosis and embolism; Z86.711 Personal history of pulmonary embolism; Z79.01 Long term (current) use of anticoagulants; Z79.899 Other long term (current) drug therapy; R22.42 Localized swelling, mass and lump, left lower limb
CPT/HCPCS: 36415; 36591; 80053; 82378; 85007; 85027; 85610; 85730; 88300; 93971; 96360; 96361; 96365; 96366; 96367; 96368; 96375; 96411; 96413; 96415; 96523; C8957; G0463; J0640; J1100; J1453; J1642; J2469; J9190; J9263

== ENCOUNTER → 2018-12-17 | Outpatient (CLI) | payer MEDICARE, OTHER ==
[~2018-12-17] MED LIST changes: +LOVE0.6I2 SC; +MEGE40SU5 PO; +ONDA8TAB10 PO; -ONDA8TAB7 PO
--- NOTE | 2018-12-17 15:08 | REP ---
HISTORY: Known DVT. COMPARISON: 11/01/2018 showed a DVT from the common femoral vein to the popliteal vein on the left. Multiple ultrasonographic images were again obtained from the level of the common femoral vein to the popliteal vein and the longitudinal and transverse scan planes along with color Doppler imaging, Doppler interrogative technique, compression techniques and augmentation. Once again, echogenic material is seen in the left thigh from the common femoral vein to the popliteal vein inclusive. The vessel olvera do not coapt. There is no response to augmentation. The color Doppler signal is abnormal. IMPRESSION: Known DVT. Findings as described above consistent with the patient's known DVT. Electronically Signed by Fabian Ricketts DO 12/17/2018 03:12 P
== END ==
LOC: M RAD 13:57
PROVIDERS: ATTEND Internal Medicine Medical Oncology
DX: I82.402 Acute embolism and thrombosis of unspecified deep veins of left lower extremity (principal)

== ENCOUNTER → 2018-12-22 | Outpatient (CLI) | payer MEDICARE, OTHER ==
[~2018-12-22] MED LIST changes: -D5W IV ONE; -FLUOROURACIL IV ONE; -FOSAPREPITANT PERIPHERAL LINE 30 MIN INFUSION (PREMIX) IV ONE; -FOSAPREPITANT PERIPHERAL LINE 30 MIN INFUSION IV ONE; +GASTROGRAFIN SOLUTION 30ML (Q9963) As Ordered ONE; +ISOVUE-370 76% 100ML VIAL (Q9967) As Ordered ONE; -IVP IV ONE; -KCL 10MEQ/100ML SWI (KRUN) SINGLE DOSE IV ONE; -LEUCOVORIN CALCIUM IV ONE; -LEUCOVORIN IV ONE; -NS 1,000 ML IV ONE; -NS 500 ML IV ONE; -ONDA8TAB10 PO; +ONDA8TAB7 PO; -OXALIPLATIN IV ONE; -PALONOSETRON 250 MCG IV IV ONE; -SODIUM CHLORIDE 0.9% INJ 10 ML SYR IV PRN; -dexameTHASONE 10 MG IV IV ONE
--- NOTE | 2018-12-22 17:07 | REP ---
CT of the chest with contrast Indication: Stage IV colorectal cancer status post 4 cycles chemotherapy. Restaging examination. Comparison: CTA chest of 11/01/2018. Technique: Axial CT of the chest was performed. Axial lung reformats and coronal and sagittal and soft tissue reformats were provided. Findings: There is a right-sided anterior chest wall port catheter the tip of which terminates in the superior vena cava. Previously described pulmonary emboli are nearly resolved with minimal residual filling defect within the segmental arterial branch to the right lower lobe. Heart size is normal. There is no pericardial effusion. There is no axillary mediastinal lymphadenopathy. The upper airway is patent. There is mild pleural parenchymal scarring within the lung apices. There is no suspicious nodule or focal consolidation. There is no pleural effusion. No suspicious focal osseous lesion. Impression: No evidence of metastatic disease within the chest. Evaluation is limited benign venous phase of contrast. Within this limitation, there is near complete resolution of segmental pulmonary emboli, in particular within the right coronary artery branch to the right lower lobe. Right-sided anterior chest wall port catheter. Electronically Signed by Malia Louis MD 12/22/2018 04:59 P
--- NOTE | 2018-12-22 17:34 | REP ---
CT of the abdomen and pelvis with contrast Indication: Stage IV colorectal cancer status post 4 cycles chemotherapy. Restaging examination. Comparison: CT of the abdomen pelvis of 09/30/2018. Technique: Axial CT of the abdomen pelvis was performed following the uneventful intravenous administration of water mL Isovue 370. Coronal and sagittal reformatted images were provided. Findings: The liver is normal in size and contour. There are unchanged hypoattenuating lesions within the left lobe, likely representing cysts. The gallbladder is partially distended. There is similar appearance of multiple splenic calcified granulomas. There is no adrenal nodule. The pancreas unremarkable. There is similar cortical cyst within the left kidney. There is bilateral fullness of the renal pelves and dilatation of the ureters, new since the prior study. There are atherosclerotic calcification of the abdominal aorta and iliac arteries. There is worsening colonic tumor burden as evidenced by increased size of the rectal mass measuring 12 x 9 cm, previously 7 x 6 cm. There are dilated loops of small bowel measuring up to 3.6 cm within the left upper quadrant. The distal colon is decompressed. There is hyperemia of the mucosa of the end colostomy within the left lower quadrant with mild stranding of the pericolonic fat, likely inflammatory. There is worsening peritoneal tumor burden. For example, the 30 x 23 mm nodule adjacent to the abdominal wall on the left previously measured 8 mm, image 78. A 18 x 15 mm adjacent nodules within the midline of the anterior pelvis, previously measured 8 mm, image 86. There is a 30 x 28 mm soft tissue nodule posterior to the right acetabulum, previously measuring 14 mm, image 118. No suspicious focal osseous lesion. Impression: When compared to the 09/30/2018 examination, there is worsening tumor burden in the form enlargement of the rectal mass and increased number and size of peritoneal metastases and increased soft tissue metastasis. There is dilatation of the small bowel, concerning for pending small bowel obstruction. Hyperemia of the left colon extending to the ostomy, likely inflammatory. Findings were reported to Dr. Boss at 04:49 p.m. one 12/22/2018. There is mild bilateral hydronephrosis, likely related to distal mechanical obstruction. Electronically Signed by Malia Louis MD 12/22/2018 05:26 P
== END ==
LOC: M RAD 13:44
PROVIDERS: ATTEND Internal Medicine Medical Oncology
DX: C18.9 Malignant neoplasm of colon, unspecified (principal)
CPT/HCPCS: 71260; 74177; Q9963; Q9967